=== PATIENT | female | born 1950 | race Caucasian/White ===

== ENCOUNTER 2017-12-16 10:41 | Emergency (ER) | payer MEDICARE, SELFPAY ==
--- NOTE | 2017-12-16 10:48 | ED.FEMALEGU ---
HPI - Female Genitourinary General Chief complaint: Urogenital-Female Stated complaint: BLOOD IN URINE Time Seen by Provider: 12/16/17 10:47 Source: patient Mode of arrival: wheelchair Limitations: no limitations History of Present Illness HPI Narrative: 67-year-old female here for evaluation of blood in her urine this morning. Patient states that she woke up this morning and had dark urine which look like blood. She has had a ache in her right side for several weeks now. 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 Has been in a wheelchair for approximately 10 years now. She states she does bruise easy. She has a bruise on her right hand which was from a injury that she sustained while boarding and aircraft for flight from [place]. No blood in her stool. She has never had a kidney stone before. Related Data Home Medications Medication Instructions Recorded Confirmed cholecalciferol (vitamin D3) 5,000 unit PO Q OTHER DAY 12/16/17 12/16/17 [Vitamin D3] digoxin 0.125 mg PO DAILY 12/16/17 12/16/17 diltiazem HCl 240 mg PO BID 12/16/17 12/16/17 divalproex 500 mg PO TID 12/16/17 12/16/17 folic acid 1 mg PO DAILY 12/16/17 12/16/17 furosemide 20 mg PO 3XW 12/16/17 12/16/17 metoprolol tartrate 100 mg PO TID 12/16/17 12/16/17 niacin 2,000 mg PO BEDTIME 12/16/17 12/16/17 potassium chloride 10 meq PO 3XW 12/16/17 12/16/17 rivaroxaban [Xarelto] 20 mg PO DAILY 12/16/17 12/16/17 rosuvastatin [Crestor] 40 mg PO DAILY 12/16/17 12/16/17 sertraline 50 mg PO DAILY 12/16/17 12/16/17 vitamin B complex 1 tab PO DAILY 12/16/17 12/16/17 Allergies Allergy/AdvReac Type Severity Reaction Status Date / Time Penicillins Allergy Rash Verified 12/16/17 11:04 Review of Systems Constitutional Denies headache(s) ENT Ears, Nose, Mouth, and Throat: Denies vertigo, Denies dizziness and Denies headache(s) Cardiovascular Denies chest pain and Denies dyspnea Respiratory Denies dyspnea Gastrointestinal Gastrointestinal: Denies abdominal pain, Denies nausea and Denies vomiting Genitourinary Reports hematuria, Denies dysuria, Reports flank pain (Flank soreness on her right), Denies urinary incontinence, Denies urinary hesitancy and Denies urinary urgency Musculoskeletal Denies myalgias and Denies arthralgias Comments: Left-sided upper and lower extremity weakness which is not new Integumentary/Breasts Denies lesions and Denies rash Comments: Bruising on the back of her right hand Neurologic Denies vertigo, Denies dizziness and Denies headache(s) Hematologic/Lymphatic Reports easy bruising PFSH Medical History Atrial fibrillation (Acute) CVA (cerebral vascular accident) (Acute) Congestive heart failure (Acute) Surgical History No pertinent past surgical history (Acute) Social History Smoking Status: Former smoker Exam Initial Vital Signs Initial Vital Signs: Vital Signs Temperature 98.0 F 12/16/17 11:00 Pulse Rate 136 H 12/16/17 11:00 Respiratory Rate 20 12/16/17 11:00 Blood Pressure 107/53 L 12/16/17 11:00 Pulse Oximetry 100 12/16/17 11:00 Const General: cooperative, well developed, well groomed and No acute distress Orientation: alert, awake and oriented x3 [facility] Head: normal to inspection and normocephalic Resp Effort & Inspection: normal respiratory effort Auscultation: clear to auscultation bilaterally Cardio Rate: tachycardic Pulses: radial pulses present Other: Patient goes in and out of atrial fibrillation with a heart rate sometimes in the 80s and sometimes in the 130s GI Inspection: non-distended Palpation: soft and No tender Back/Spine/Pelvis Back: No CVA tenderness (No CVA tenderness to palpation but does feel a soreness to her right side) Skin Rashes: no rashes Other: Bruising on the dorsum of the right hand consistent with her stated history Neuro General: alert, awake and oriented x3 Other: Unable to move the left upper extremity and left lower extremity but this is not new to her otherwise nonfocal neurologic exam Extrem General: capillary refill normal Psych Appearance: grossly normal and well kempt Course Orders Ordered: ED Orders 12/16/17 10:50 Urinalysis and Microscopic Stat Urine Culture Stat 12/16/17 11:15 Basic Metabolic Panel Stat Complete Blood Count AUTO DIFF Stat Partial Thromboplastin Time Stat Prothrombin Time INR Stat 12/16/17 12:25 CT kidney ureter bladder (KUB) Stat Discontinued Medications Sodium Chloride (Normal Saline 0.9%) 1,000 mls @ 500 mls/hr IV BOLUS ONE Stop: 12/16/17 12:54 Last Admin: 12/16/17 11:50 Dose: 500 mls/hr Vital Signs - 8 hr 12/16/17 11:00 12/16/17 11:44 12/16/17 12:10 Temperature 98.0 F Pulse Rate 136 H 97 H 115 H Respiratory Rate 20 16 16 Blood Pressure 107/53 L Blood Pressure [Right Arm] 127/71 128/56 L Pulse Oximetry 100 99 99 12/16/17 13:08 Temperature Pulse Rate 109 H Respiratory Rate 23 Blood Pressure Blood Pressure [Right Arm] 120/73 Pulse Oximetry MDM - Female Genitourinary Lab Data Attestation: I reviewed the patient's lab results. Result diagrams: 12/16/17 11:15 12/16/17 11:15 Lab Results 12/16/17 12/16/17 12/16/17 Range/Units 10:50 11:15 11:15 WBC 9.8 (4.5-11.0) X10^3/uL RBC 3.89 L (4.0-5.2) X10^6/uL Hgb 12.3 (12.0-16.0) g/dL Hct 37.0 (36-46) % MCV 95.3 (80-100) fL MCH 31.6 (26-34) PG MCHC 33.2 (30-36) % RDW 15.5 H (11.6-14.8) % Plt Count 175 (150-400) X10^3/uL Neut % (Auto) 74.9 (50-75) % Lymph % (Auto) 14.2 L (25-40) % [place] % (Auto) 9.3 (3-14) % Eos % (Auto) 1.1 L (2-4) % Baso % (Auto) 0.5 (0-2) % Neut # (Auto) 7400 H (8663-2225) /uL PT 17.0 H (10.1-12.7) SECONDS INR 1.6 H (0.9-1.3) APTT 36 (26.4-36.2) SECONDS Sodium (137-145) mmol/L Potassium (3.4-5.1) mmol/L Chloride (98-107) mmol/L Carbon Dioxide (22-32) mmol/L BUN (7-17) mg/dL Creatinine (0.52-1.04) mg/dL Estimated GFR (>60) mL/min BUN/Creatinine Ratio (6-22) Glucose (80-110) mg/dL Calcium (8.4-10.2) mg/dL Urine Color Brown Urine Appearance Turbid Urine pH 5.0 (4.5-8.0) Ur Specific [place] 1.025 (1.000-1.035) Urine Protein 2+ H (Negative) Urine Glucose (UA) Negative (Normal) g/dL Urine Ketones Trace H (NEGATIVE) Urine Occult Blood 3+ H (Negative) Urine Nitrate Negative (Negative) Urine Bilirubin Negative (NEGATIVE) Urine Urobilinogen 1.0 (0.2) E.U./dL Ur Leukocyte Esterase Negative (NEGATIVE) Urine RBC >100/hpf H (0-5/HPF) Urine WBC 1-5/hpf (0-5/HPF) Ur Squamous Epith Cells 0-1 /hpf Ur Renal Epithelial Cell 0-1/hpf Amorphous Sediment 3+ Urine Bacteria Few (2-10) H (None) Ur Culture Indicated? Not Reportable Micro UA Comment Not Reportable 12/16/17 Range/Units 11:15 WBC (4.5-11.0) X10^3/uL RBC (4.0-5.2) X10^6/uL Hgb (12.0-16.0) g/dL Hct (36-46) % MCV (80-100) fL MCH (26-34) PG MCHC (30-36) % RDW (11.6-14.8) % Plt Count (150-400) X10^3/uL Neut % (Auto) (50-75) % Lymph % (Auto) (25-40) % [place] % (Auto) (3-14) % Eos % (Auto) (2-4) % Baso % (Auto) (0-2) % Neut # (Auto) (8698-9183) /uL PT (10.1-12.7) SECONDS INR (0.9-1.3) APTT (26.4-36.2) SECONDS Sodium 146 H (137-145) mmol/L Potassium 4.1 (3.4-5.1) mmol/L Chloride 106 (98-107) mmol/L Carbon Dioxide 29 (22-32) mmol/L BUN 40 H (7-17) mg/dL Creatinine 1.30 H (0.52-1.04) mg/dL Estimated GFR 40.9 L (>60) mL/min BUN/Creatinine Ratio 30.8 H (6-22) Glucose 88 (80-110) mg/dL Calcium 9.4 (8.4-10.2) mg/dL Urine Color Urine Appearance Urine pH (4.5-8.0) Ur Specific [place] (1.000-1.035) Urine Protein (Negative) Urine Glucose (UA) (Normal) g/dL Urine Ketones (NEGATIVE) Urine Occult Blood (Negative) Urine Nitrate (Negative) Urine Bilirubin (NEGATIVE) Urine Urobilinogen (0.2) E.U./dL Ur Leukocyte Esterase (NEGATIVE) Urine RBC (0-5/HPF) Urine WBC (0-5/HPF) Ur Squamous Epith Cells Ur Renal Epithelial Cell Amorphous Sediment Urine Bacteria (None) Ur Culture Indicated? Micro UA Comment Imaging Data CT scan - abdomen: Radiologist's impression: [place] [address] CT Scan Report Signed Patient: YM DALTON [facility]#: [id number] : 1Acct:[id number] Age/Sex: 67 / FDate of Service: 12/16/17 Loc: ED Accession Number: [id number] Procedure: CT kidney ureter bladder (KUB) Ordering Provider: Bryce Fagan D.O. PROCEDURE: CT KIDNEY URETER BLADDER (KUB) INDICATIONS: right flank pain and hematuria eval for renal stone TECHNIQUE: Noncontrast 5 mm thick sections acquired from the diaphragms to the symphysis. 5 mm thick coronal and sagittal reformats were then performed. For radiation dose reduction, the following was used: automated exposure control, adjustment of mA and/or kV according to patient size. COMPARISON: None. FINDINGS: Image quality: Excellent. Lung bases: Lung volumes are low. There are multiple subcentimeter nodules visualized within the lung bases. Trace groundglass opacities are present. Urinary system: The right kidney is mildly enlarged. There is mild right hydronephrosis and hydroureter. There is moderate right periureteral fat stranding. Note no obstruction is visualized within the right ureter. However, there is questionable soft tissue thickening of the bladder at the level of the right ureterovesicular junction (series 2, image 71). There is scarring at the superior pole of the right kidney. A nonobstructing 5 mm diameter calculus is present in the right lower pole. There is scarring at the superior pole the left kidney. There are multiple subcentimeter nonobstructing calculi within the left kidney. No left hydronephrosis, hydroureter, or ureterolithiasis. No perinephric fat stranding. Other solid organs: Liver is normal in size. Gallbladder is surgically absent. Pancreas is normal in contours. Spleen is normal in size. No adrenal nodules. Peritoneum and bowel: Unenhanced bowel loops demonstrate normal wall thickness and caliber. There are extensive diverticula outpouchings throughout the colon. No mucosal thickening or pericolonic fat stranding to suggest acute diverticulitis. The appendix is not visualized; however there is no discrete right lower quadrant fluid or fat stranding to suggest acute appendicitis. No free fluid or air. Nodes and vessels: No retroperitoneal or mesenteric adenopathy by size criteria. Aorta and inferior vena cava are normal in caliber. There are scattered atheromatous calcifications throughout the aorta and iliac arteries bilaterally. Abdominal wall: No ventral hernias. Pelvis: No free pelvic fluid. No inguinal hernias or adenopathy. Bones: No suspicious bony lesions. No vertebral body compression fractures. A small sclerotic focus is present within the left inferior obturator ring which likely represents a small bone island. IMPRESSION: 1. Mild right hydronephrosis and hydroureter with right periureteral fat stranding. No renal calculus is visualized; however there is a questionable mass within the bladder near the right ureterovesicular junction. This may be associated with with an obstructing urothelial tumor. Direct visualization is recommended. 2. Nonobstructing bilateral nephrolithiasis. 3. Extensive colon diverticulosis. No acute diverticulitis. The appendix is not visualized. 4. Poorly characterize subcentimeter nodules within the lungs. If further characterization is warranted, nonemergent CT of the chest is recommended. Dictated by: Dania Peters M.D. on 12/16/2017 at 13:01 MDM Narrative Medical decision making narrative: Patient is not anemic today. Her urinalysis is not consistent with a urinary tract infection. She is on Xarelto. No signs of kidney stones on her CT scan. There was some concern about a possible mass at the right UVJ causing hydronephrosis and hydroureter. I discussed this case with [facility] urology who was avionics systems engineer who stated that this could be a tumor versus is a blood clot. He stated that she does need further workup however this could be done as an outpatient. I discussed all this with the patient. I did inform her of the finding on the CT scan and the concern that this may be a tumor. They are new to the [facility]. They are not set up with the primary care doctor however they did have plans of doing so tomorrow. They were given phone numbers for the [facility] urology groups and also the [facility]. Informed them that she should still continue to take her Xarelto. She was informed to increase her fluid intake. She was given return precautions. Both her and her daughter expressed understanding and agreement with plan. Discharge Plan Departure Patient Disposition: Home Clinical Impression: Hematuria Instructions: DI for Hematuria Activity Restrictions/Additional Instructions: I would continue all of your medications to include the Xarelto. The CT scan today did show what appears to be a mass on the right side of your bladder. It is important that this gets followed up. Thinks that this could be include diagnosis such as a blood clot but could also be a tumor. I would highly recommend that you contact the [facility] primary care groups to establish care. You can also try to call the [facility] urology group at [phone]. There is a possibility that they would require a referral from a primary care doctor before they will see you. Return to the emergency department for any new or worsening symptoms. Prescriptions: No Action metoprolol tartrate 100 mg Tablet 100 mg PO TID RF: 0 divalproex 500 mg Tablet,Delayed Release (Dr/Ec) 500 mg PO TID RF: 0 vitamin B complex Tablet 1 tab PO DAILY RF: 0 folic acid 1 mg Tablet 1 mg PO DAILY RF: 0 digoxin 125 mcg Tablet 0.125 mg PO DAILY RF: 0 furosemide 20 mg Tablet 20 mg PO 3XW RF: 0 sertraline 50 mg Tablet 50 mg PO DAILY RF: 0 diltiazem HCl 240 mg Tablet Extended Release 24 Hr 240 mg PO BID RF: 0 rosuvastatin [Crestor] 40 mg Tablet 40 mg PO DAILY RF: 0 cholecalciferol (vitamin D3) [Vitamin D3] 5,000 unit Tablet 5,000 unit PO Q OTHER DAY RF: 0 niacin 1,000 mg Tablet Extended Release 2,000 mg PO BEDTIME RF: 0 rivaroxaban [Xarelto] 20 mg Tablet 20 mg PO DAILY RF: 0 potassium chloride 10 mEq Tablet Extended Release 10 meq PO 3XW RF: 0
[2017-12-16 11:00] VITALS: BP 107/53; PULSE 136; RESP 20; TEMP 36.7; O2SAT 100; BMI 35.6
[2017-12-16 11:20] LABS: Appearance Urine UA TURBID; Bilirubin Urine UA NEGATIVE (NEGATIVE); Color Urine UA BROWN; Glucose Urine UA NEGATIVE (Normal); Ketones Urine UA TRACE (NEGATIVE); Leukocyte Esterase Urine UA NEGATIVE (NEGATIVE); Nitrite Urine UA NEGATIVE (Negative); Occult Blood Urine UA 3+ (Negative); Protein Urine UA 2+ (Negative); Specific Gravity Urine UA 1.025 (1.000-1.035)
[2017-12-16 11:39] LABS: Add Manual Diff / Slide Review NO; Basophils Percent Auto 0.5 % (0-2); Eosinophils Percent Auto 1.1 % (2-4); Hemoglobin 12.3 g/dL (12.0-16.0); Lymphocytes Percent Auto 14.2 % (25-40); Mean Corpuscular HGB Conc 33.2 % (30-36); Mean Corpuscular Hemoglobin 31.6 PG (26-34); Mean Corpuscular Volume 95.3 fL (80-100); Monocytes Percent Auto 9.3 % (3-14); Neutrophils Absolute Auto 7400 /uL (3000-5900); Neutrophils Percent Auto 74.9 % (50-75); Platelet Count 175 X10^3/uL (150-400); Red Blood Cell Count 3.89 X10^6/uL (4.0-5.2); Red Cell Distribution Width 15.5 % (11.6-14.8); White Blood Cell Count 9.8 X10^3/uL (4.5-11.0)
[2017-12-16 11:39] LABS: RBC Urine >100/HPF (0-5/HPF); WBC Urine 1-5/HPF (0-5/HPF)
[2017-12-16 11:40] LABS: Amorphous Sediment Urine 3+; Bacteria Urine Few (2-10); Renal Epithelial Cells Urine 0-1/HPF; Squamous Epithelial Cell Urine 0-1 /HPF
--- NOTE | 2017-12-16 11:42 | PC.NURSE ---
by LORY Wilson guided by ultrasound, tolerated well.
--- NOTE | 2017-12-16 11:43 | PC.NURSE ---
pt here due to blood in the urine, treated with uti 2 weeks ago , treated with antibiotic for 7 days, reports right kidney pain for one week, pt on xarelto for afib. denies fever or vomiting.
[2017-12-16 11:44] VITALS: BP 127/71; PULSE 97; RESP 16; O2SAT 99
[2017-12-16 11:45] LABS: INR 1.6 (0.9-1.3)
--- NOTE | 2017-12-16 11:45 | PC.NURSE ---
hx of cva left side deficit for 11 years.
[2017-12-16 11:47] LABS: PTT Partial Thromboplastin Tim 36 SECONDS (26.4-36.2)
[2017-12-16 11:49] LABS: BUN Creatinine Ratio 30.8 (6-22); Blood Urea Nitrogen 40 mg/dL (7-17); Calcium 9.4 mg/dL (8.4-10.2); Carbon Dioxide 29 mmol/L (22-32); Chloride 106 mmol/L (98-107); Estimated Glomerular Filt Rate 40.9 mL/min (>60); Glucose 88 mg/dL (80-110); HEMOLYSIS < 15 (0-50); Potassium 4.1 mmol/L (3.4-5.1); Sodium 146 mmol/L (137-145)
[2017-12-16] MEDS: SODIUM CHLORIDE 0.9% 1,000 ML 500 ML IV (11:50)
[2017-12-16 12:10] VITALS: BP 128/56; PULSE 115; RESP 16; O2SAT 99
--- NOTE | 2017-12-16 12:25 | DI.CT.S_ITS ---
PROCEDURE: CT KIDNEY URETER BLADDER (KUB) INDICATIONS: right flank pain and hematuria eval for renal stone TECHNIQUE: Noncontrast 5 mm thick sections acquired from the diaphragms to the symphysis. 5 mm thick coronal and sagittal reformats were then performed. For radiation dose reduction, the following was used: automated exposure control, adjustment of mA and/or kV according to patient size. COMPARISON: None. FINDINGS: Image quality: Excellent. Lung bases: Lung volumes are low. There are multiple subcentimeter nodules visualized within the lung bases. Trace groundglass opacities are present. Urinary system: The right kidney is mildly enlarged. There is mild right hydronephrosis and hydroureter. There is moderate right periureteral fat stranding. Note no obstruction is visualized within the right ureter. However, there is questionable soft tissue thickening of the bladder at the level of the right ureterovesicular junction (series 2, image 71). There is scarring at the superior pole of the right kidney. A nonobstructing 5 mm diameter calculus is present in the right lower pole. There is scarring at the superior pole the left kidney. There are multiple subcentimeter nonobstructing calculi within the left kidney. No left hydronephrosis, hydroureter, or ureterolithiasis. No perinephric fat stranding. Other solid organs: Liver is normal in size. Gallbladder is surgically absent. Pancreas is normal in contours. Spleen is normal in size. No adrenal nodules. Peritoneum and bowel: Unenhanced bowel loops demonstrate normal wall thickness and caliber. There are extensive diverticula outpouchings throughout the colon. No mucosal thickening or pericolonic fat stranding to suggest acute diverticulitis. The appendix is not visualized; however there is no discrete right lower quadrant fluid or fat stranding to suggest acute appendicitis. No free fluid or air. Nodes and vessels: No retroperitoneal or mesenteric adenopathy by size criteria. Aorta and inferior vena cava are normal in caliber. There are scattered atheromatous calcifications throughout the aorta and iliac arteries bilaterally. Abdominal wall: No ventral hernias. Pelvis: No free pelvic fluid. No inguinal hernias or adenopathy. Bones: No suspicious bony lesions. No vertebral body compression fractures. A small sclerotic focus is present within the left inferior obturator ring which likely represents a small bone island. IMPRESSION: 1. Mild right hydronephrosis and hydroureter with right periureteral fat stranding. No renal calculus is visualized; however there is a questionable mass within the bladder near the right ureterovesicular junction. This may be associated with with an obstructing urothelial tumor. Direct visualization is recommended. 2. Nonobstructing bilateral nephrolithiasis. 3. Extensive colon diverticulosis. No acute diverticulitis. The appendix is not visualized. 4. Poorly characterize subcentimeter nodules within the lungs. If further characterization is warranted, nonemergent CT of the chest is recommended. Dictated by: Dania Peters M.D. on 12/16/2017 at 13:01 Approved by: Dania Peters M.D. on 12/16/2017 at 13:07
[2017-12-16 13:08] VITALS: BP 120/73; PULSE 109; RESP 23
[2017-12-16 14:30] VITALS: BP 117/87; PULSE 111; RESP 16; O2SAT 100
== END 2017-12-16 14:31 | disposition home or self-care (01) ==
PROVIDERS: Emergency Provider Emergency Medicine
DX: R31.9 Hematuria, unspecified (principal)
CPT/HCPCS: 36591; 51798; 74176; 80048; 81001; 85025; 85610; 85730; 87086; 96360; 96361; 99284

== ENCOUNTER 2019-05-31 03:34 | Inpatient (IN) | payer OTHER, SELFPAY ==
[2019-05-31] VITALS (20 sets, daily range): BP systolic 147–192; BP diastolic 66–103; PULSE 74–119; RESP 14–24; TEMP 36.6–37.6; O2SAT 90–98; BMI 36.3; BMI 29.2
--- NOTE | 2019-05-31 | DI.ECHO.S_ITS ---
[facility]---------+ [facility] +---------+ : : [address] : : : : [id number] : : : : Phone: [phone] Echocardiogram Report + + :Name: MY DALTON Study Date: 06/02/2019 Height: 66 in : :[facility] Weight: 225 lb : : Gender: Female BSA: 2.1 m2 : :: 1950 Age: 69 yrs BP: 156/76 mmHg: :Reason For Study: CHF : : Performed By: Hillary Gregory : :Referring: RADHA MEZA : + + Interpretation Summary The patient was in atrial fibrillation with heart rates between 70-112 bpm during the exam. Mild-moderate concentric left ventricular hypertrophy with ejection fraction 55-60%. Apical hypertrophy is present. Severely dilated left atrium. Moderate to severely dilated right atrium. Mild aortic valve sclerosis. Mild aortic regurgitation. Mild mitral annular calcification. Moderate mitral regurgitation. Mild tricuspid regurgitation. The right ventricular systolic pressure is estimated to be at least 30 mmHg based on an estimated right atrial pressure of 3 mm Hg. Mildly enlarged ascending aorta. Procedure: A two-dimensional transthoracic echocardiogram with color flow and Doppler was performed. The study quality was technically adequate. There is no prior echocardiogram noted for this patient. A contrast injection of Definity was performed to improve assessment of LV function. Definity contrast used after patient education and consent. Patient denied any symptoms after the use of Definity. Contrast was injected into an intravenous site in the right arm. The patient was in atrial fibrillation with heart rates between 70- 112 bpm during the exam. Left Ventricle: The left ventricle is normal in size. There is mild-moderate concentric left ventricular hypertrophy. Apical hypertrophy is present. The ejection fraction is estimated to be 55-60%. There are no obvious focal wall motion abnormalities noted but poor endocardial definition reduces the sensitivity for the detection of such. Diastolic function could not be accurately assessed due to atrial fibrillation. Right Ventricle: The right ventricle grossly appears normal in size with probable normal systolic function. Atria: The left atrium is severely dilated. The right atrium is moderate to severely dilated. There is no Doppler evidence for an interatrial shunt. Mitral Valve: The mitral valve leaflets appear mildly thickened, but open well. There is mild mitral annular calcification. There is moderate mitral regurgitation. Aortic Valve: The aortic valve is not well visualized. There is mild aortic valve sclerosis. There is mild aortic regurgitation. Tricuspid Valve: The tricuspid valve is normal in structure and function. There is mild tricuspid regurgitation. The right ventricular systolic pressure is estimated to be at least 30 mmHg based on an estimated right atrial pressure of 3 mm Hg. Pulmonic Valve: The pulmonic valve is not well visualized. There is no pulmonic valvular regurgitation. Great Vessels: The aortic root is not well visualized. The ascending aorta is mildly enlarged. The IVC is of normal diameter and collapses greater than 50% with a sniff. This suggests a low right atrial pressure of 3 mm Hg. Pericardium/ Pleura There is no pericardial effusion. There is no pleural effusion. MMode/2D Measurements & Calculations LVIDd: 4.8 cm LVOT diam: 1.9 cm LVIDs: 3.5 cm Ao root diam: 2.8 cm FS: 27.6 % asc Aorta Diam: 3.6 cm EPSS: 0.57 cm IVSd: 1.3 cm LVPWd: 1.3 cm LV stout. diameter/BSA (cm/m^2): 2.3 LV sys. diameter/BSA (cm/m^2): 1.7 LA A2 area: 30.5 cm2 RA long axis: 6.3 cm LA A4 area: 27.9 cm2 RA area: 26.3 cm2 LA length (vol): 6.3 cm RA vol: 93.5 ml LA vol: 114.8 ml RA : 44.5 ml/m2 LA vol index: 54.6 ml/m2 IVC diam: 1.9 cm RVD1 (basal): 3.3 cm TAPSE: 1.2 cm Doppler Measurements & Calculations Ao V2 max: 204.2 cm/sec LVOT Max Remington: 90.6 cm/sec Ao V2 mean: 128.7 cm/sec LV V1 max P.3 mmHg Ao max P.7 mmHg LV V1 VTI: 15.4 cm Ao mean P.0 mmHg LALO(I,D): 1.4 cm2 Ao V2 VTI: 33.5 cm LALO(V,D): 1.3 cm2 sev ratio: 0.46 LALO indexed to BSA (cm^2/m^2): 0.64 MV E max remington: 88.0 cm/sec TR max remington: 259.7 cm/sec MV A max remington: 1.9 cm/sec TR max P.0 mmHg MV E/A: 46.6 PA V2 max: 116.9 cm/sec Med Peak E' Remington: 4.9 cm/sec PA V2 mean: 75.3 cm/sec E/E' med: 17.8 PA mean P.7 mmHg Lat Peak E' Remington: 8.0 cm/sec PA pr(Accel): 54.1 mmHg E/E' lat: 11.0 PA Accel Time: 0.06 sec E/e' average: 14.4 MV dec time: 0.16 sec SV(VALERIO): 45.3 ml Electronically signed by: Rhea Morrissey on Reading Physician:06/02/2019 01:44 PM
--- NOTE | 2019-05-31 03:35 | ED_ITS ---
HPI - SOB/Dyspnea General Chief Complaint: Arrhythmia/Palpitations Stated Complaint: SOB Time Seen by Provider: 05/31/19 03:35 Source: patient Mode of arrival: Ambulatory Limitations: no limitations History of Present Illness HPI Narrative: 69-year-old female nonsmoker with history of AFib on Xarelto with above left-sided stroke presents with a chief complaint of rapid atrial fibrillation and increasing shortness of breath and fatigue since yesterday. She denies any chest pain and is not dizzy or lightheaded. She denies any fever, chills or cough. She has had no headache, sore throat nor runny nose. She denies any change in her medications nor any dietary indiscretions. Her last hospitalization for atrial fibrillation was approximately 2 and half years ago. She states she is chronically in atrial fibrillation and typically Cardizem and the beta-blockers do not help and she normally responds to amio darone and then amiodarone drip during hospitalizations. She does take digoxin and took her last dose last evening. She has been having swelling in her lower extremities, denies any weight gain, but does admit to increasing shortness of breath lying flat. She takes Lasix as needed for fluid overload and did take a dose yesterday MD Complaint: shortness of breath Onset (ago): hour(s) Severity: moderate Relieving factors: upright position Exacerbating factors: lying flat and exertion Known history of: congestive heart failure Associated symptoms: wheezing Related Data Home Medications Medication Instructions Recorded Confirmed cholecalciferol (vitamin D3) 5,000 unit PO Q OTHER DAY 12/16/17 12/16/17 [Vitamin D3] digoxin 0.125 mg PO DAILY 12/16/17 12/16/17 diltiazem HCl 240 mg PO BID 12/16/17 12/16/17 divalproex 500 mg PO TID 12/16/17 12/16/17 folic acid 1 mg PO DAILY 12/16/17 12/16/17 furosemide 20 mg PO 3XW 12/16/17 12/16/17 metoprolol tartrate 100 mg PO TID 12/16/17 12/16/17 niacin 2,000 mg PO BEDTIME 12/16/17 12/16/17 potassium chloride 10 meq PO 3XW 12/16/17 12/16/17 rivaroxaban [Xarelto] 20 mg PO DAILY 12/16/17 12/16/17 rosuvastatin [Crestor] 40 mg PO DAILY 12/16/17 12/16/17 sertraline 50 mg PO DAILY 12/16/17 12/16/17 vitamin B complex 1 tab PO DAILY 12/16/17 12/16/17 Allergies Allergy/AdvReac Type Severity Reaction Status Date / Time Penicillins Allergy Rash Verified 05/31/19 03:57 Review of Systems Constitutional Constitutional: Denies chills, Denies fatigue, Denies fever(s), Denies frequent falls, Denies lethargy and Denies weakness Eyes Eyes: Denies change in vision, Denies eye discharge, Denies irritation and Denies loss of vision ENT Ears, Nose, Mouth, and Throat: Denies change in voice, Denies dizziness, Denies neck pain, Denies sore throat and Denies throat swelling Cardiovascular Cardiovascular: Denies chest pain, Reports irregular heart rhythm, Denies lightheadedness, Reports palpitations, Reports dyspnea, Reports dyspnea on exertion and Reports orthopnea Respiratory Respiratory: Denies cough, Reports dyspnea, Reports dyspnea on exertion and Denies wheezing Gastrointestinal Gastrointestinal: Denies abdominal pain, Denies change in bowel habits, Denies diarrhea, Denies nausea and Denies vomiting Genitourinary Genitourinary: Denies hematuria, Denies flank pain, Denies urinary incontinence and Denies urinary urgency Musculoskeletal Musculoskeletal: Denies back pain, Denies muscle weakness, Denies neck pain, Denies numbness and Denies tingling Integumentary/Breasts Skin/Breast: Denies pruritus, Denies erythema, Denies rash and Denies wounds Neurologic Neurologic: Denies behavioral changes, Denies confusion, Denies dizziness, Denies frequent falls, Denies loss of vision, Denies numbness, Denies tingling and Denies weakness Psychiatric Psychiatric: Denies anxiety, Denies behavioral changes, Denies confusion, Denies depression, Denies homicidal ideation and Denies suicidal ideation Endocrine Endocrine: Denies fatigue, Denies flushing and Reports palpitations Hematologic/Lymphatic Hematologic/Lymphatic: Denies easy bruising Allergic/Immunologic Allergic/Immunologic: Denies urticaria, Denies throat swelling and Denies wheezing Patient History Medical History Atrial fibrillation (Acute) Congestive heart failure (Acute) CVA (cerebral vascular accident) (Acute) Surgical History No pertinent past surgical history (Acute) Social History Smoking Status: Former smoker Smoking Status: Former smoker alcohol intake frequency: holidays/special occasions only Substance Use Type: does not use Exam Narrative Exam Narrative: GENERAL: [69] year old patient appears stated age. Well- nourished, well-developed patient, in mild distress. HEAD: Atraumatic. Normocephalic. EYES: Pupils equal round and reactive. Extraocular motions intact. No scleral icterus. No injection or drainage. ENT: Nose without bleeding, purulent drainage. Throat without erythema, tonsillar hypertrophy or exudate. Airway patent. NECK: Trachea midline. Non tender CARDIOVASCULAR: Tachycardic and irregular rhythm without murmurs, gallops, or rubs. RESPIRATORY: Faint crackles in bilateral bases GASTROINTESTINAL: Abdomen soft, non-tender, nondistended. EXTREMITIES:1+ pitting edema in B/L LE BACK: Nontender without deformity or crepitance. No flank tenderness. NEURO: AOx3. Left-sided paralysis at baseline per patient SKIN: No rash or erythema of visible areas Initial Vital Signs Initial Vital Signs: Vital Signs Temperature 99.6 F 05/31/19 03:46 Pulse Rate 111 H 05/31/19 03:46 Respiratory Rate 18 05/31/19 03:46 Blood Pressure 150/80 H 05/31/19 03:46 Pulse Oximetry 98 05/31/19 03:46 Course Orders Ordered: ED Orders 05/31/19 03:43 EKG-12 Lead Routine 05/31/19 03:54 XR chest 1V Stat 05/31/19 04:05 Basic Metabolic Panel Stat Complete Blood Count AUTO DIFF Stat NT-proBNP (BNP-Adult 18+) Stat Prothrombin Time INR Stat Troponin & CK Cardiac Panel Stat 05/31/19 04:27 CT chest wo con Stat 05/31/19 04:37 C-Reactive Protein Quant Stat Digoxin Stat Ferritin Stat Procalcitonin Stat Amiodarone HCl/Dextrose (Nexterone) 360 mg in 200 mls @ 33.333 mls/hr IV NOW ONE; Protocol Stop: 05/31/19 10:10 Last Admin: 05/31/19 04:32 Dose: 33.333 mls /hr, 33.33 mls/hr Documented by: CNONIE Discontinued Medications Furosemide (Lasix) 40 mg IV NOW ONE Stop: 05/31/19 03:55 Last Admin: 05/31/19 04:16 Dose: 40 mg Documented by: CONNIE Amiodarone HCl/Dextrose (Nexterone) 150 mg in 100 mls @ 600 mls/hr IV NOW ONE; Protocol Stop: 05/31/19 04:03 Last Infusion: 05/31/19 04:33 Dose: 0 mls/hr Documented by: Admin: 05/31/19 04:16 Dose: 600 mls/hr Documented by: CONNIE Vital Signs Vital signs: Vital Signs - 8 hr 05/31/19 03:46 05/31/19 05:50 Temperature 99.6 F Pulse Rate 111 H 96 H Respiratory Rate 18 14 Blood Pressure 150/80 H Blood Pressure [Right Arm] 160/83 H Pulse Oximetry 98 92 MDM - SOB/Dyspnea Lab Data Result diagrams: 05/31/19 04:05 05/31/19 04:05 Labs: Lab Results 05/31/19 05/31/19 05/31/19 Range/Units 04:05 04:05 04:05 WBC 13.0 H (4.5-11.0) X10^3/uL RBC 3.81 L (4.0-5.2) X10^6/uL Hgb 11.7 L (12.0-16.0) g/dL Hct 36.8 (36-46) % MCV 96.6 (80-100) fL MCH 30.8 (26-34) PG MCHC 31.9 (30-36) % RDW 16.0 H (11.6-14.8) % Plt Count 316 (150-400) X10^3/uL Neut % (Auto) 72.6 (50-75) % Lymph % (Auto) 12.7 L (25-40) % [place] % (Auto) 11.9 (3-14) % Eos % (Auto) 2.1 (2-4) % Baso % (Auto) 0.7 (0-2) % Neut # (Auto) 9400 H (4455-8261) /uL Lymph # (Auto) 1700 (0508-6220) /uL [place] # (Auto) 1600 H (0-900) /uL Eos # (Auto) 300 (0-450) /uL Baso # (Auto) 100 (0-100) /uL PT 21.1 H (10.1-12.7) SECONDS INR 1.9 H (0.9-1.3) Sodium 143 (137-145) mmol/L Potassium 4.7 (3.4-5.1) mmol/L Chloride 110 H (98-107) mmol/L Carbon Dioxide 21 L (22-32) mmol/L BUN 35 H (7-17) mg/dL Creatinine 1.07 H (0.52-1.04) mg/dL Estimated GFR 50.8 L (>60) mL/min BUN/Creatinine Ratio 32.7 H (6-22) Glucose 115 H (80-110) mg/dL Calcium 10.1 (8.4-10.2) mg/dL Ferritin (11-264) ng/mL Total Creatine Kinase 33 (30-135) U/L CK-MB (CK-2) TNP CK-MB (CK-2) Rel Index TNP Troponin I < 0.012 (0.01-0.034) ng/mL C-Reactive Protein (<1.0) mg/dL NT-Pro-B Natriuret Pep 4490 H (<125) pg/mL Procalcitonin (<0.5) ng/mL Digoxin (0.8-2.0) ng/mL 05/31/19 05/31/19 05/31/19 Range/Units 04:37 04:37 04:37 WBC (4.5-11.0) X10^3/uL RBC (4.0-5.2) X10^6/uL Hgb (12.0-16.0) g/dL Hct (36-46) % MCV (80-100) fL MCH (26-34) PG MCHC (30-36) % RDW (11.6-14.8) % Plt Count (150-400) X10^3/uL Neut % (Auto) (50-75) % Lymph % (Auto) (25-40) % [place] % (Auto) (3-14) % Eos % (Auto) (2-4) % Baso % (Auto) (0-2) % Neut # (Auto) (6201-6219) /uL Lymph # (Auto) (9058-8371) /uL [place] # (Auto) (0-900) /uL Eos # (Auto) (0-450) /uL Baso # (Auto) (0-100) /uL PT (10.1-12.7) SECONDS INR (0.9-1.3) Sodium (137-145) mmol/L Potassium (3.4-5.1) mmol/L Chloride (98-107) mmol/L Carbon Dioxide (22-32) mmol/L BUN (7-17) mg/dL Creatinine (0.52-1.04) mg/dL Estimated GFR (>60) mL/min BUN/Creatinine Ratio (6-22) Glucose (80-110) mg/dL Calcium (8.4-10.2) mg/dL Ferritin 95 (11-264) ng/mL Total Creatine Kinase (30-135) U/L CK-MB (CK-2) CK-MB (CK-2) Rel Index Troponin I (0.01-0.034) ng/mL C-Reactive Protein 6.5 H (<1.0) mg/dL NT-Pro-B Natriuret Pep (<125) pg/mL Procalcitonin < 0.05 (<0.5) ng/mL Digoxin 1.4 (0.8-2.0) ng/mL ECG Data Attestation: I personally reviewed and interpreted this ECG as follows: Prior ECG tracings: not available for review Interpretation: Rapid atrial fibrillation with rate 111, LVH, Discharge Plan Departure Patient Disposition: Admitted As Inpatient Clinical Impression: Atrial fibrillation Qualifiers: Atrial fibrillation type: longstanding persistent Qualified Code(s): I48.11 - Longstanding persistent atrial fibrillation Acute CHF Qualifiers: Heart failure type: unspecified Qualified Code(s): I50.9 - Heart failure, unspecified Admit Date/Time: 05/31/19 06:25 Admit Provider: Alejandra Schmidt
--- NOTE | 2019-05-31 03:54 | DI.RAD.S_ITS ---
PROCEDURE: XR CHEST 1V INDICATIONS: Shortness of breath TECHNIQUE: One view of the chest was acquired. COMPARISON: [facility], CT, CT CHEST WO CON, 05/31/2019, 4:38. FINDINGS: Surgical changes and devices: None. Lungs and pleura: Diffuse ground glass attenuation is identified throughout the lungs bilaterally with a possible area of consolidation within the left lung base. No large effusion or pneumothorax is evident. However, there is blunting of the costophrenic angles. Mediastinum: Mediastinal contours appear normal. Heart size is slightly enlarged. There is aortic atherosclerosis. Bones and chest wall: No suspicious bony lesions. Overlying soft tissues appear unremarkable. IMPRESSION: 1. Diffuse groundglass attenuation throughout the lungs may represent an atypical infection, pulmonary edema, or hypersensitivity pneumonitis. Please correlate clinically. 2. Cardiomegaly. Dictated by: Socrates Ramirez M.D. on 05/31/2019 at 7:40 Approved by: Socrates Ramirez M.D. on 05/31/2019 at 7:41
[2019-05-31 04:15] LABS: Add Manual Diff / Slide Review NO; Basophils Absolute Auto 100 /uL (0-100); Basophils Percent Auto 0.7 % (0-2); Eosinophils Absolute Auto 300 /uL (0-450); Eosinophils Percent Auto 2.1 % (2-4); Hematocrit 36.8 % (36-46); Hemoglobin 11.7 g/dL (12.0-16.0); Lymphocytes Absolute Auto 1700 /uL (1100-4500); Lymphocytes Percent Auto 12.7 % (25-40); Mean Corpuscular HGB Conc 31.9 % (30-36); Mean Corpuscular Hemoglobin 30.8 PG (26-34); Mean Corpuscular Volume 96.6 fL (80-100); Monocytes Absolute Auto 1600 /uL (0-900); Monocytes Percent Auto 11.9 % (3-14); Neutrophils Absolute Auto 9400 /uL (1500-7000); Neutrophils Percent Auto 72.6 % (50-75); Platelet Count 316 X10^3/uL (150-400); Red Blood Cell Count 3.81 X10^6/uL (4.0-5.2)
[2019-05-31] MEDS: FUROSEMIDE 40 MG/4 ML VIAL IV (04:16)
[2019-05-31] MEDS: AMIODARONE 150 MG/100 ML PIGGYBACK 600 MG IV (04:16)
[2019-05-31 04:22] LABS: INR 1.9 (0.9-1.3); Prothrombin Time 21.1 SECONDS (10.1-12.7)
[2019-05-31 04:26] LABS: BUN Creatinine Ratio 32.7 (6-22); Blood Urea Nitrogen 35 mg/dL (7-17); Calcium 10.1 mg/dL (8.4-10.2); Carbon Dioxide 21 mmol/L (22-32); Chloride 110 mmol/L (98-107); Creatine Kinase 33 U/L (30-135); Estimated Glomerular Filt Rate 50.8 mL/min (>60); Glucose 115 mg/dL (80-110); HEMOLYSIS 23 (0-50); Potassium 4.7 mmol/L (3.4-5.1); Sodium 143 mmol/L (137-145)
--- NOTE | 2019-05-31 04:27 | DI.CT.S_ITS ---
PROCEDURE: CT CHEST WO CON INDICATIONS: Shortness o fbreath, low grade fever TECHNIQUE: Noncontrast 5 mm thick sections acquired from the pulmonary apices to the posterior costophrenic angles. 1 mm lung window, 5 mm thick coronal and sagittal and 7 mm axial MIP reformats were then acquired. For radiation dose reduction, the following was used: automated exposure control, adjustment of mA and/or kV according to patient size. COMPARISON: [facility], CR, XR CHEST 1V, 05/31/2019, 4:01. FINDINGS: Image quality: Diagnostic. Lungs and pleura: Extensive groundglass attenuation is identified diffusely throughout the lungs with additional areas of mild interlobular septal thickening. Scattered pulmonary nodules appear to be developing within these areas of groundglass attenuation. Trace bilateral pleural effusions are identified. There is no lung mass. Scattered calcified granulomas within the right lung are present. Mediastinum: The heart is enlarged. No significant pericardial effusion is identified. Coronary artery atherosclerosis is present. There is also aortic atherosclerosis with borderline aneurysmal dilatation of the ascending thoracic aorta, measuring up to 3.9 cm. The main pulmonary arterial trunk is mildly enlarged at 3.5 cm in diameter. No mediastinal mass is evident. Small moderate size lymph nodes are identified within the mediastinum with the largest located within the anterior subcarinal region, which measures up to approximately 1.6 cm in short axis (image 25, series 2). A prevascular lymph node near the aortopulmonary window is also present, which is slightly prominent in size. Additional hilar and mediastinal lymph nodes are evident. The esophagus is normal in course and caliber. There is no hiatal hernia. Bones and chest wall: No suspicious bony lesions. No vertebral body compression fractures. Moderate degenerative changes of the thoracic spine are evident. No axillary or supraclavicular adenopathy by size criteria. Thyroid gland is not adequately evaluated on CT, but is not enlarged.. Abdomen: The included portions of the upper abdomen appear demonstrate mild renal atrophy. However, the kidneys adequately characterize. IMPRESSION: 1. Groundglass attenuation throughout the lungs is nonspecific, but may represent pulmonary edema, atypical infection, or hypersensitivity pneumonitis. Please correlate clinically. 2. Small bilateral effusions. 3. Cardiomegaly. 4. Reactive mediastinal and hilar lymph nodes are mildly enlarged. 5. Borderline aneurysmal dilatation of the ascending thoracic aorta. 6. Coronary and aortic atherosclerosis. Note: The preliminary report provided by [facility] is concordant with the final report. Dictated by: Socrates Ramirez M.D. on 05/31/2019 at 7:42 Approved by: Socrates Ramirez M.D. on 05/31/2019 at 7:46
[2019-05-31] MEDS: AMIODARONE 360 MG/200 ML PIGGYBACK 33.33 MG IV (04:32)
[2019-05-31 04:38] LABS: NT-proBNP (BNP-Adult 18+) 4490 pg/mL (<125); Troponin I < 0.012 ng/mL (0.01-0.034)
[2019-05-31 04:58] LABS: C-Reactive Protein Quant 6.5 mg/dL (<1.0)
[2019-05-31 05:10] LABS: Digoxin 1.4 ng/mL (0.8-2.0); Procalcitonin < 0.05 ng/mL (<0.5)
--- NOTE | 2019-05-31 05:27 | PC.NURSE ---
Placed larsen catheter. no urine output. pt reports feels like she needs to urinate. Removed larsen and placed on bed [place]. Pt able to void.
[2019-05-31 05:31] LABS: Ferritin 95 ng/mL (11-264)
--- NOTE | 2019-05-31 05:49 | PC.NURSE ---
patient repeatedly desatted into upper 80s. Patient sleeping during osme but not all episodes. Placed on 2l NC. Provider aware.
--- NOTE | 2019-05-31 07:09 | P.HP_ITS ---
History of Present Illness History of Present Illness Date Patient Seen: 05/31/19 Time Patient Seen: 06:30 Chief complaint: SOB Narrative: Regina Capellan is a 69-year-old female with the previous CVA affecting her left side, chronic atrial fibrillation, congestive heart failure, and hyperlipidemia presented with shortness of breath to the emergency department and was found to be in atrial fibrillation. She stated that she had shortness of breath both at rest and when active. She denies fever, sweats or chills. She denies chest pain, nausea vomiting, abdominal pain, dysuria, diarrhea or constipation. She is paralyzed on left side but denies any abnormal neurological sensations on the right. Patient has not had any sick contacts, though lives with her daughter, son-in-law and school aged children. 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 Patient History Medical History (Updated 05/31/19 @ 07:12 by CHRISS Maloney) Atrial fibrillation (Acute) Congestive heart failure (Acute) CVA (cerebral vascular accident) (Acute) History of CVA with residual deficit (Chronic) HLD (hyperlipidemia) (Chronic) Surgical History (Updated 05/31/19 @ 07:12 by CHRISS Maloney) Hx of cholecystectomy (Acute) Family & Social History Safety & Behavioral: Feels Safe in Current Yes Environment Been Physically Hurt or No Threatened By a Person Tobacco & Substance use: Smoking Status Former smoker alcohol intake frequency holiday/special occasion Substance Use Type does not use Meds Home Medications and Allergies Home Medications Medication Instructions Recorded Confirmed Type cholecalciferol (vitamin D3) 5,000 unit PO Q OTHER DAY 12/16/17 12/16/17 History [Vitamin D3] digoxin 0.125 mg PO DAILY 12/16/17 12/16/17 History diltiazem HCl 240 mg PO BID 12/16/17 12/16/17 History divalproex 500 mg PO TID 12/16/17 12/16/17 History folic acid 1 mg PO DAILY 12/16/17 12/16/17 History furosemide 20 mg PO 3XW 12/16/17 12/16/17 History metoprolol tartrate 100 mg PO TID 12/16/17 12/16/17 History niacin 2,000 mg PO BEDTIME 12/16/17 12/16/17 History potassium chloride 10 meq PO 3XW 12/16/17 12/16/17 History rivaroxaban [Xarelto] 20 mg PO DAILY 12/16/17 12/16/17 History rosuvastatin [Crestor] 40 mg PO DAILY 12/16/17 12/16/17 History sertraline 50 mg PO DAILY 12/16/17 12/16/17 History vitamin B complex 1 tab PO DAILY 12/16/17 12/16/17 History Allergies Allergy/AdvReac Type Severity Reaction Status Date / Time Penicillins Allergy Rash Verified 05/31/19 03:57 Review of Systems Review of Systems ROS: Yes All systems reviewed with the patient and are negative except as otherwise documented Exam Vital Signs (past 8 hours): - 05/31/19 03:46 05/31/19 05:50 05/31/19 06:30 Temperature 99.6 F Pulse Rate 111 H 96 H 93 H Respiratory Rate 18 14 18 Blood Pressure 150/80 H Blood Pressure [Right Arm] 160/83 H 158/88 H Pulse Oximetry 98 92 94 Oxygen Delivery Method Nasal Cannula Oxygen Flow Rate 2 Narrative Exam Narrative: Gen: Alert, oriented, obese 69 y.o. female, NAD HEENT: normocephalic, atraumatic, conjunctiva clear, sclera non-icteric, oral mucosa pink and moist Neck: supple, full ROM, no JVD Resp: Lungs CTA, non-labored breathing CV: Irregularly irregular, no murmur or rubs Abd: soft, non-tender, normoactive BTs Skin: Left leg is significantly larger than the right with +for nonpitting edema no lesions or rashes, dry and intact Neuro: left-sided paralysis, alert and oriented X 4 Extremities: moves all 4 extremities, is ambulatory, negative Rosana?s sign Psyche: very pleasant, normal mood and affect. Objective Labs Result Diagrams: 05/31/19 04:05 05/31/19 04:05 Labs: Laboratory Results - last 24 hr 05/31/19 05/31/19 05/31/19 04:05 04:05 04:05 WBC 13.0 H RBC 3.81 L Hgb 11.7 L Hct 36.8 MCV 96.6 MCH 30.8 MCHC 31.9 RDW 16.0 H Plt Count 316 Neut % (Auto) 72.6 Lymph % (Auto) 12.7 L [place] % (Auto) 11.9 Eos % (Auto) 2.1 Baso % (Auto) 0.7 Neut # (Auto) 9400 H Lymph # (Auto) 1700 [place] # (Auto) 1600 H Eos # (Auto) 300 Baso # (Auto) 100 PT 21.1 H INR 1.9 H Sodium 143 Potassium 4.7 Chloride 110 H Carbon Dioxide 21 L BUN 35 H Creatinine 1.07 H Estimated GFR 50.8 L BUN/Creatinine Ratio 32.7 H Glucose 115 H Calcium 10.1 Ferritin Total Creatine Kinase 33 CK-MB (CK-2) TNP CK-MB (CK-2) Rel Index TNP Troponin I < 0.012 C-Reactive Protein NT-Pro-B Natriuret Pep 4490 H Procalcitonin Digoxin 05/31/19 05/31/19 05/31/19 04:37 04:37 04:37 WBC RBC Hgb Hct MCV MCH MCHC RDW Plt Count Neut % (Auto) Lymph % (Auto) [place] % (Auto) Eos % (Auto) Baso % (Auto) Neut # (Auto) Lymph # (Auto) [place] # (Auto) Eos # (Auto) Baso # (Auto) PT INR Sodium Potassium Chloride Carbon Dioxide BUN Creatinine Estimated GFR BUN/Creatinine Ratio Glucose Calcium Ferritin 95 Total Creatine Kinase CK-MB (CK-2) CK-MB (CK-2) Rel Index Troponin I C-Reactive Protein 6.5 H NT-Pro-B Natriuret Pep Procalcitonin < 0.05 Digoxin 1.4 Assessment & Plan Assessment & Plan narrative: Regina Capellan is a 69-year-old female with chronic atrial fibrillation and will be admitted inpatient on amiodarone drip until she converts. Due to vague respiratory symptoms and a suspicious CT, she has been swabbed for COVID-19 and will be on droplet precautions. Acute on chronic atrial fibrillation, present on admission -patient will be continued on an amiodarone drip. She states that she does not respond to diltiazem -last medication of record she was taking metoprolol 100 mg p.o. t.i.d., digoxin 0125 mg p.o. daily and diltiazem 240 mg p.o. b.i.d. she will be resumed on these medications once they have been confirmed. -She continued on her home dose of rivaroxaban 20 mg p.o. daily Acute on chronic congestive heart failure with the proBNP of 4490 -she was given IV Lasix in the ED and will be reassessed during the day for continued Lasix administration -I have scheduled her for complete echocardiogram this morning -1500 ml fluid restriction -continuous telemetry monitoring Mild hypoxia, dry cough, mildly febrile w/borderline lymphopenia -Swab for COVID-19 pending -respiratory panel and urine strep pending Consults: none Patient is placed into an inpatient ICU bed due being on a cardiac drip and requirement for continuous monitoring. Stay is likely to exceed 2 midnights. FEN: IV saline lock, low sodium diet, BMP in the am. VTE prophylaxis: Bilateral SCDs currently anticoagulated on home dose of rivaroxaban Dispo:Unknown at this time Code Status: DNR/DNI as discussed with patient.
--- NOTE | 2019-05-31 08:54 | CM.DANOTE ---
Discharge Planning/Care Management DCP: assessment: case received, EMR reviewed. COVID-19 rule out protocol is in process. PT is a 69 year old female who admitted early this mornin to care of the hospitalist team. PCP: listed as Sydni Thao. Payer: [facility] Medicare Advantage Admission status: in review: per UR FRANCISCO JAVIER Chávez Pt with history of Afib on Xarelto. Hx CVA with L side affected. Hx CHF. Pt is currently on o2 at 2 L NC. Next of Kin: listed as Sylvie [place]: [place]: cell: [phone]. P: discuss in Team Rounds with hospitalist. Reach out to family and/or to patient if she is well enough for conversation and able to talk on her phone for introduction of self and role and to gather more information to help with d/c issues and options. CM Discharge Assessment Start: 05/31/19 08:49 Freq: Status: Active Protocol: Document 05/31/19 08:50 ITV (Rec: 05/31/19 08:54 ITV [id number]) Discharge Planning Assessment Advance Directives? Yes History Provided By Medical Record Household Members family Comment per documenation in H&P: lives with daughter, son-in -law and their school age children Plan to confirm when able to reach someone for discussion. Is patient alert and oriented? Yes Review Status In Process
[2019-05-31 10:30] LABS: Troponin I 0.018 ng/mL (0.01-0.034)
[2019-05-31] MEDS: RIVAROXABAN 10 MG TABLET 20 MG PO (10:40)
[2019-05-31] MEDS: AMIODARONE 360 MG/200 ML PIGGYBACK 16.7 MG IV ×2 (11:11→22:29)
[2019-05-31 11:16] LABS: Adenovirus Not Detected (Not Detect); Bordetella pertussis Not Detected (Not Detect); Chlamydophila pneumoniae Not Detected (Not Detect); Coronavirus 229E Not Detected (Not Detect); Coronavirus HKU1 Not Detected (Not Detect); Coronavirus NL 63 Not Detected (Not Detect); Coronavirus OC43 Not Detected (Not Detect); Human Metapneumovirus Not Detected (Not Detect); Human Rhinovirus/Enterovirus Not Detected (Not Detect); Influenza A Not Detected (Not Detect); Influenza B Not Detected (Not Detect); Mycoplasma pneumoniae Not Detected (Not Detect); Parainfluenza Virus 1 Not Detected (Not Detect); Parainfluenza Virus 2 Not Detected (Not Detect); Parainfluenza Virus 3 Not Detected (Not Detect); Parainfluenza Virus 4 Not Detected (Not Detect); Respiratory Syncytial Virus Not Detected (Not Detect)
[2019-05-31 12:02] LABS: Free T4, Direct Thyroxine 1.19 ng/dL (0.78-2.19)
[2019-05-31 12:13] LABS: Magnesium 2.2 mg/dL (1.6-2.3)
[2019-05-31 12:15] LABS: Thyroid Stimulating Hormone 3.59 uIU/mL (0.47-4.68)
[2019-05-31 12:42] LABS: HCO3 ABG 27 mmol/L (22-26); Oxygen Saturation ABG 96 % (95-100); PCO2 ABG 33.1 mmHg (35-45); PO2 ABG 74 mmHg (80-100); TCO2 ABG 28 mmol/L (21-31); pH ABG 7.52 (7.35-7.45)
[2019-05-31 12:43] LABS: Fractionated Inspired Oxygen 0.32
[2019-05-31] MEDS: METOPROLOL IR 50 MG TABLET 100 MG PO ×2 (13:25→20:18)
[2019-05-31] MEDS: DIVALPROEX DR 250 MG TABLET 500 MG PO ×2 (13:27→20:18)
[2019-05-31] MEDS: ACETAMINOPHEN 325 MG TABLET 650 MG PO (13:30)
--- NOTE | 2019-05-31 14:06 | PC.ADMIT ---
[id number] Admission Note: The patient,Regina Capellan,69 y/o, was given written information regarding hospital policies, unit procedures and contact persons. Patient's smoking status: Former smoker. Vital Signs - 8 hr 05/31/19 06:30 05/31/19 07:34 05/31/19 08:30 Temperature 99.1 F Pulse Rate 93 H 92 H 117 H Respiratory Rate 18 21 23 Blood Pressure 155/70 H 192/92 H Blood Pressure [Right Arm] 158/88 H Pulse Oximetry 94 93 93 05/31/19 09:00 05/31/19 10:00 05/31/19 11:00 Temperature 98.7 F 98.7 F Pulse Rate 119 H 110 H 86 Respiratory Rate 22 19 Blood Pressure 168/97 H 164/74 H 154/71 H Blood Pressure [Right Arm] Pulse Oximetry 94 94 Rec'd pt from ED to room 231 at 0800. Pt AO x4 and making needs known with clear/logical speech. Oriented to room, environment. Educated to fall risk, use of call light, isolation precautions, medications. Noted to be Afib RVR. Continuing on amio gtt for rate control. HTN noted. Med rec completed. Clarified orders with Dr. Mejia re admission status and continuation of amio gtt. Orders received. Pt noted to have decreased SPO2 to 84-85% on 2L NC while sleeping. Increased to 3L and noted SPO2 83% after a few minutes (pt still asleep). Awoke pt and after 5 minutes, SPO2 increased to 93%. Pt denies hx of MARILY. Elevated HOB and instructed to deep breath. Notified Dr. Mejia and orders received to obtain an ABG. Continuing 3L NC to maintain sats. Bed rails x3 and call light in reach.
--- NOTE | 2019-05-31 18:54 | PC.NURSE ---
805- Dr. Mejia notified of low urine output. Order to encourage po fluid. Fluid restriction dc'd. Will monitor.
[2019-05-31] MEDS: dilTIAZem CD 240 MG CAP PO (20:18)
[2019-06-01] VITALS (19 sets, daily range): BP systolic 135–162; BP diastolic 69–85; PULSE 73–123; RESP 16–25; TEMP 36.3–36.9; O2SAT 92–96
[2019-06-01] MEDS: ACETAMINOPHEN 325 MG TABLET 650 MG PO ×2 (00:49→20:46)
--- NOTE | 2019-06-01 03:55 | PC.NURSE ---
0350 - Patient had 11 beat run of V-tach while sleeping. Remained asymptomatic with a blood pressure of 148/86. Denied chest pain or SOB. Event was self limiting and resumed AFIB CVR. Hospitalist Brayan notified of event.
[2019-06-01 08:04] LABS: Add Manual Diff / Slide Review NO; Basophils Absolute Auto 100 /uL (0-100); Basophils Percent Auto 0.9 % (0-2); Eosinophils Absolute Auto 300 /uL (0-450); Eosinophils Percent Auto 3.3 % (2-4); Hematocrit 32.2 % (36-46); Hemoglobin 10.7 g/dL (12.0-16.0); Lymphocytes Absolute Auto 1500 /uL (1100-4500); Lymphocytes Percent Auto 18.6 % (25-40); Mean Corpuscular HGB Conc 33.2 % (30-36); Mean Corpuscular Hemoglobin 31.5 PG (26-34); Mean Corpuscular Volume 94.7 fL (80-100); Monocytes Absolute Auto 1000 /uL (0-900); Monocytes Percent Auto 12.2 % (3-14); Neutrophils Absolute Auto 5300 /uL (1500-7000); Platelet Count 271 X10^3/uL (150-400); Red Cell Distribution Width 15.7 % (11.6-14.8); White Blood Cell Count 8.1 X10^3/uL (4.5-11.0)
[2019-06-01] MEDS: ROSUVASTATIN 10 MG TABLET 40 MG PO (08:09)
[2019-06-01] MEDS: dilTIAZem CD 240 MG CAP PO ×2 (08:10→20:47)
[2019-06-01] MEDS: SERTRALINE 50 MG TABLET PO (08:10)
[2019-06-01] MEDS: METOPROLOL IR 50 MG TABLET 100 MG PO ×3 (08:10→20:46)
[2019-06-01] MEDS: RIVAROXABAN 10 MG TABLET 20 MG PO (08:10)
[2019-06-01] MEDS: DIGOXIN 0.125 MG TABLET PO (08:11)
[2019-06-01] MEDS: DIVALPROEX DR 250 MG TABLET 500 MG PO ×3 (08:11→20:47)
[2019-06-01 08:13] LABS: BUN Creatinine Ratio 25.7 (6-22); Blood Urea Nitrogen 29 mg/dL (7-17); Calcium 9.3 mg/dL (8.4-10.2); Carbon Dioxide 31 mmol/L (22-32); Chloride 102 mmol/L (98-107); Estimated Glomerular Filt Rate 47.7 mL/min (>60); Glucose 129 mg/dL (80-110); HEMOLYSIS < 15 (0-50); Potassium 4.1 mmol/L (3.4-5.1); Sodium 139 mmol/L (137-145)
[2019-06-01 08:22] LABS: NT-proBNP (BNP-Adult 18+) 4150 pg/mL (<125)
--- NOTE | 2019-06-01 09:01 | P.PN_ITS ---
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 She was noted to be in AFib with RVR although she is chronically in AFib. Also noted to have bilateral lung infiltrates concerning for pneumonia and on the floor was dropping her O2 sats to low 80s when asleep. Patient states she has improvement in her dyspnea. She had 11 beat run of V- tach at around 3:00 a.m.. Exam Vital Signs (past 8 hours): - 06/01/19 02:00 06/01/19 03:00 06/01/19 04:00 Temperature 97.8 F Pulse Rate 73 97 H Respiratory Rate 21 Blood Pressure 151/76 H 161/69 H 139/80 Pulse Oximetry 95 06/01/19 06:00 06/01/19 07:00 06/01/19 08:00 Temperature 98.4 F Pulse Rate 121 H Respiratory Rate 25 H Blood Pressure 140/79 135/81 160/69 H Pulse Oximetry 96 06/01/19 08:11 Temperature Pulse Rate 119 H Respiratory Rate Blood Pressure Pulse Oximetry Oxygen Delivery Method Nasal Cannula Oxygen Flow Rate 3 Narrative Exam Narrative: General: Alert very pleasant female who appears comfortable Lungs: Few scattered crackles in the lower lobes, no wheeze Heart: Irregularly irregular Extremities: No edema Neurological: Affect normal, sensorium intact, conversant, left hemiplegia due to previous CVA Objective Labs Result Diagrams: 06/01/19 07:54 06/01/19 07:54 Labs: Laboratory Results - last 24 hr 05/31/19 05/31/19 05/31/19 08:35 08:35 09:58 WBC RBC Hgb Hct MCV MCH MCHC RDW Plt Count Neut % (Auto) Lymph % (Auto) [place] % (Auto) Eos % (Auto) Baso % (Auto) Neut # (Auto) Lymph # (Auto) [place] # (Auto) Eos # (Auto) Baso # (Auto) ABG pH ABG pCO2 ABG pO2 ABG HCO3 ABG Total CO2 ABG O2 Saturation ABG Base Excess FiO2 Sodium Potassium Chloride Carbon Dioxide BUN Creatinine Estimated GFR BUN/Creatinine Ratio Glucose Calcium Magnesium Troponin I NT-Pro-B Natriuret Pep TSH 3.59 Free T4 1.19 Nasal Screen MRSA (PCR) Negative for mrsa Chlamy pneumoniae PCR Not detected Adenovirus (PCR) Not detected B.parapertussis DNA PCR Not detected Coronavirus OC43 (PCR) Not detected Coronavirus HKU1 (PCR) Not detected Coronavirus 229E (PCR) Not detected Coronavirus NL63 (PCR) Not detected Human Metapneumovir PCR Not detected Influenza Type A (PCR) Not detected Influenza Type B (PCR) Not detected M. pneumoniae (PCR) Not detected Parainfluenza 1 (PCR) Not detected Parainfluenza 2 (PCR) Not detected Parainfluenza 3 (PCR) Not detected Parainfluenza 4 (PCR) Not detected RSV (PCR) Not detected Entero/Rhino (PCR) Not detected 05/31/19 05/31/19 05/31/19 09:58 09:58 11:22 WBC RBC Hgb Hct MCV MCH MCHC RDW Plt Count Neut % (Auto) Lymph % (Auto) [place] % (Auto) Eos % (Auto) Baso % (Auto) Neut # (Auto) Lymph # (Auto) [place] # (Auto) Eos # (Auto) Baso # (Auto) ABG pH 7.52 H ABG pCO2 33.1 L ABG pO2 74 L ABG HCO3 27 H ABG Total CO2 28 ABG O2 Saturation 96 ABG Base Excess 4.0 H FiO2 0.32 Sodium Potassium Chloride Carbon Dioxide BUN Creatinine Estimated GFR BUN/Creatinine Ratio Glucose Calcium Magnesium 2.2 Troponin I 0.018 NT-Pro-B Natriuret Pep TSH Free T4 Nasal Screen MRSA (PCR) Chlamy pneumoniae PCR Adenovirus (PCR) B.parapertussis DNA PCR Coronavirus OC43 (PCR) Coronavirus HKU1 (PCR) Coronavirus 229E (PCR) Coronavirus NL63 (PCR) Human Metapneumovir PCR Influenza Type A (PCR) Influenza Type B (PCR) M. pneumoniae (PCR) Parainfluenza 1 (PCR) Parainfluenza 2 (PCR) Parainfluenza 3 (PCR) Parainfluenza 4 (PCR) RSV (PCR) Entero/Rhino (PCR) 06/01/19 06/01/19 07:54 07:54 WBC 8.1 RBC 3.40 L Hgb 10.7 L Hct 32.2 L MCV 94.7 MCH 31.5 MCHC 33.2 RDW 15.7 H Plt Count 271 Neut % (Auto) 65.0 Lymph % (Auto) 18.6 L [place] % (Auto) 12.2 Eos % (Auto) 3.3 Baso % (Auto) 0.9 Neut # (Auto) 5300 Lymph # (Auto) 1500 [place] # (Auto) 1000 H Eos # (Auto) 300 Baso # (Auto) 100 ABG pH ABG pCO2 ABG pO2 ABG HCO3 ABG Total CO2 ABG O2 Saturation ABG Base Excess FiO2 Sodium 139 Potassium 4.1 Chloride 102 Carbon Dioxide 31 BUN 29 H Creatinine 1.13 H Estimated GFR 47.7 L BUN/Creatinine Ratio 25.7 H Glucose 129 H Calcium 9.3 Magnesium Troponin I NT-Pro-B Natriuret Pep 4150 H TSH Free T4 Nasal Screen MRSA (PCR) Chlamy pneumoniae PCR Adenovirus (PCR) B.parapertussis DNA PCR Coronavirus OC43 (PCR) Coronavirus HKU1 (PCR) Coronavirus 229E (PCR) Coronavirus NL63 (PCR) Human Metapneumovir PCR Influenza Type A (PCR) Influenza Type B (PCR) M. 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 She was noted to be in AFib with RVR although she is chronically in AFib. Also noted to have diffuse bilateral lung infiltrates concerning for COVID-19 pneumonia and on the floor was dropping her O2 sats to low 80s when asleep. 1. Exacerbation of chronic atrial fibrillation, present on admission, active -patient is on multiple AV node blocking agents and stated she was treated with IV amiodarone drip in the past during AFib exacerbations, sees air tube releaser in [place] -increase in tachycardia is likely secondary to pneumonia and respiratory failure and patient can likely tolerate resting heart rate below 120 -received amiodarone 150 mg IV bolus then started on amiodarone drip which was discontinued on a.m. 06/01/2019 -continue metoprolol tartrate 100 mg t.i.d., diltiazem XT 200 40 mg b.i.d., digoxin 0.125 mg q.d. which is her home routine -continue Xarelto 20 mg q.d. -digoxin level 1.4 -TSH normal -TTE ordered 2. Episode of nonsustained V-tach -patient had 11 beat run of V-tach around 3:00 a.m. 06/01/2019 while on amiod arone drip -K+ 4.1, magnesium 2.2 -continue telemetry monitoring 3. Acute hypoxic respiratory failure, present on admission, active -ABG 7.516, pCO2 33, PO2 74 on 3 L NC, PaO2/FIO2 to 231 -noncontrast CT with diffuse ground-glass infiltrates consistent with COVID-19 pneumonia, less likely pulmonary edema due to CHF -WBC normal with lymphopenia, procalcitonin < 0.05, and patient has been afebrile -rule out COVID-19 -at this time not on antibiotics as there is no evidence of bacterial process 4. History of CHF, unknown type -takes furosemide 20 mg as needed only -received IV Lasix x1 in ED -NT proBNP 4150 -clinically she does not appear in CHF exacerbation -TTE ordered Code status: DNR/DNI as discussed with patient
--- NOTE | 2019-06-01 10:37 | CM.DPC ---
DCP: continued: case discussed in Team Rounds with Dr. Mejia. He confirms that pt it w/c bound at baseline but it is unclear if she is able to manage her every day activities including transfers by herself. COVID-19 test results are not yet received as of this time. Dr. Mejia has ordered PT and OT evals to start once the test results are in place. PT Hillary was part of [employer] and agreeable to same. Spoke now with pt's daughter Sylvie Zepeda, as planned. [phone]. Sylvie confirms that pt does live with her, her and their children. She says her mother is alert and oriented but does need quite a bit of physical assist. Pt gets around in a w/c. Is able to transfer herself from her w/c to the chair she likes to sit in but in all other mobility ways she needs family assist. They help her in and out of bed, to the bathroom. Provide help with dressing and hygiene. Shower assist.j Pt does feed herself with set up and can do things that involve her R hand. P: Sylvie confirms that they plan to take pt back home to continue this care once she is stable for same. She expressed thankfulness for the call and the care of her mother by the hospital.
--- NOTE | 2019-06-01 12:26 | PT-IP ANOTE ---
MD ordered for PT to start after COVID test results back. Pt does not have results back yet. Discussed with RN to notify PT if results back.
[2019-06-01] MEDS: FLEETS ENEMA 1 EACH PR (13:59)
--- NOTE | 2019-06-01 14:33 | PT-IP ANOTE ---
COVID testing still pending so follow up with pt in the AM.
--- NOTE | 2019-06-01 21:08 | PC.NURSE ---
2105- patient had 6 beats of Vtach. Vital signs wnl. Will monitor
[2019-06-02] VITALS (7 sets, daily range): BP systolic 135–153; BP diastolic 61–94; PULSE 74–98; RESP 18–24; TEMP 36–37.2; O2SAT 92–96
--- NOTE | 2019-06-02 06:49 | PC.NURSE ---
Hospitalist notified of low urine output of 150 and bladder scan of <130. Patient encouraged to drink fluids.
[2019-06-02] MEDS: dilTIAZem CD 240 MG CAP PO ×2 (08:48→21:07)
[2019-06-02] MEDS: METOPROLOL IR 50 MG TABLET 100 MG PO ×3 (08:49→21:07)
[2019-06-02] MEDS: ROSUVASTATIN 10 MG TABLET 40 MG PO (08:49)
[2019-06-02] MEDS: DIVALPROEX DR 250 MG TABLET 500 MG PO ×3 (08:49→21:09)
[2019-06-02] MEDS: DIGOXIN 0.125 MG TABLET PO (08:49)
[2019-06-02] MEDS: RIVAROXABAN 10 MG TABLET 20 MG PO (08:50)
[2019-06-02] MEDS: SERTRALINE 50 MG TABLET PO (08:50)
[2019-06-02] MEDS: ACETAMINOPHEN 325 MG TABLET 650 MG PO ×2 (09:15→21:09)
[2019-06-02 10:22] LABS: COVID19 Sendout NOT DETECTED
--- NOTE | 2019-06-02 11:19 | PC.NURSE ---
1000- Pt requests OOB to commode to have BM. Pt was able to sit up to edge of bed with min/CGA. Placed gait belt. Pt was able to stand and bear weight with right leg and pivot to BSC with 1PA. Pt states she occasionally needs to perform digital stimulation to have BM. She states she does this herself and is requesting glove. Provided glove/lube. Pt was able to have large/formed/hard brown BM. After, pt reports diaphoresis and dizziness. HR 116 afib BP 115/57 SPO2 96% RA RR 24. Assisted back to bed with 2PA for safety. Pt reports feeling better after laying down. Will monitor.
--- NOTE | 2019-06-02 12:34 | OT.IPNOTE ---
Spoke to pt's daughter and states prior pt just able to feed herself and take her meds after set-up, otherwise family assists with all transfers, dressing, and showering.
--- NOTE | 2019-06-02 12:39 | OT.IPNOTE ---
Pt's family states pt able to self feed and take her pills after set-up otherwise, pt needing assist for all dressing, toileting, bathing and shower needs. Therefore discharge OT eval orders at this time.
--- NOTE | 2019-06-02 14:06 | PT.IIE ---
Current Diagnoses Dyspnea, unspecified (05/31/19) Surgical History (Last Updated 05/31/19 @ 07:12 by CHRISS Maloney) Hx of cholecystectomy (Acute) Medical History (Last Updated 05/31/19 @ 07:11 by CHRISS Maloney) Atrial fibrillation (Acute) Congestive heart failure (Acute) CVA (cerebral vascular accident) (Acute) History of CVA with residual deficit (Chronic) HLD (hyperlipidemia) (Chronic) Physical Therapy Inpatient Evaluation/Re-Eval M1 PT/OT-IP Prior Functional Status Start: 06/02/19 15:14 Freq: NEEDED Status: Active Protocol: Document 06/02/19 15:14 [facility] (Rec: 06/02/19 15:24 [facility] [id number]) Medical Review Prior Functional Status Medical History Reviewed Yes Diet/Fluid Consistency Regular Communication WNL Mobility and Gait Pt has been transfer with 1PA min A. Activities of Daily Living and IADL's has help with ADLs from family Social History Household Members family Living Arrangements House Number of Floors (Floors) Two Floors Number of Stairs To Enter/Railing? 2STE that family helps her up in her WC Home Environment High Toilet,Walk in Shower Home Equipment Grab Bars Near Toilet,Grab Bars In Shower Additional Social History Comment Pt showers in w/c so is wheeled in. M2 PT-IP Current Condition Start: 06/02/19 15:14 Freq: NEEDED Status: Active Protocol: Document 06/02/19 15:14 [facility] (Rec: 06/02/19 15:24 [facility] [id number]) Physical Therapy Current Condition Current Condition Evaluation Date 06/02/19 Treatment Diagnosis SOB M3 PT-IP Subjective Start: 06/02/19 15:14 Freq: NEEDED Status: Active Protocol: Document 06/02/19 15:14 [facility] (Rec: 06/02/19 15:24 [facility] [id number]) Subjective Physical Therapy Visit Type Type Initial Evaluation Visit Start Time 13:30 Visit Stop Time 14:06 Total Visit Minutes 36 Physical Therapy Visit Comments Patient Comments Pt agreeable with PT. Reprots family helps a lot so does not forsee any issues at home. M4 PT-IP Mobility and Gait Start: 06/02/19 15:14 Freq: NEEDED Status: Active Protocol: Document 06/02/19 15:14 [facility] (Rec: 06/02/19 15:24 [facility] [id number]) PT-Bed Mobility Assessment Supine to Sit Supine to Sit Standby Assistance,Head of Bed Elevated,Bedrails Scooting Scooting to Edge of Bed Standby Assistance PT-Transfer Assessment Sit to and From Stand Sit to and from Stand Minimal Assistance Equipment Transfer Assistive Device Gait Belt Transfers Transfer Destination Chair Transfer Technique Stand Pivot Transfer Ability Level of Assist Minimal Assistance Comments Mobility Comments Pt transfered with min A to chair and stood 2x from chair with min A to partial stand to fix cords Gait Assessment Comments Gait Comments n/a M5 PT-IP Objective Assessments Start: 06/02/19 15:14 Freq: NEEDED Status: Active Protocol: Document 06/02/19 15:14 [facility] (Rec: 06/02/19 15:24 [facility] [id number]) Orientation Orientation/Cognition Level of Alertness Alert Language Function Ability No Deficits Noted Safety Awareness Understands Safety Issues Memory Description No Deficits Noted Gross Range of Motion Lower Extremity ROM Assessment Left Impaired Strength Lower Extremity Strength Assessment Left Impaired M6 PT-IP Treatment Start: 06/02/19 15:14 Freq: NEEDED Status: Active Protocol: Document 06/02/19 15:14 [facility] (Rec: 06/02/19 15:24 [facility] [id number]) Physical Therapy Treatment Education Education Provided Safety M7 PT-IP Assessment and Plan Start: 06/02/19 15:14 Freq: NEEDED Status: Active Protocol: Document 06/02/19 15:14 [facility] (Rec: 06/02/19 15:24 [facility] [id number]) PT Summary Assessment and Plan Potential Rehabilitation Potential Excellent Status of Condition at Evaluation Stable Summary Impairments Transfers Assessment Summary Pt is at baseline per her's and family's report. At this time she is d/c from PT as she is at her baseline and is understanding of how to transfer safely at home. She has supportive family that will continue to be able to provide / care at this time . Frequency of Treatment Frequency Of Treatment Discharge Recommendations To Nursing Amount of Assist Needed 1 Person Assist Discharge Recommendations PT Discharge Recommendations Home with Assistance Transportation Needs at Discharge Private Vehicle
--- NOTE | 2019-06-02 17:02 | PM.PN.1 ---
Subjective Subjective Date Patient Seen: 06/02/19 Interval history: Patient is a 69-year-old female admitted to the hospital with atrial fibrillation and RVR. In addition she is being treated for pneumonia, hypoxia and rule out today for COVID-19. Heart rate has been well controlled on her current regimen. Patient is now off oxygen. She has no further complaints Exam Vital Signs (past 8 hours): - 06/02/19 12:17 06/02/19 16:00 06/02/19 16:46 Temperature 98.9 F 97.6 F 97.6 F Pulse Rate 81 98 H 74 Respiratory Rate 21 18 19 Blood Pressure 141/62 H 142/65 H 142/65 H Pulse Oximetry 92 95 95 Oxygen Delivery Method Nasal Cannula Oxygen Flow Rate 0 Narrative Exam Narrative: Delightful female lying in bed in no obvious distress Lungs: Clear to auscultation Cardiac exam: Irregularly irregular, normal S1-S2, 2/6 systolic ejection murmur Abdomen: Soft nontender nondistended Extremities: No edema, left upper extremity marked hemiparesis Objective Labs Result Diagrams: 06/01/19 07:54 06/01/19 07:54 Labs: Laboratory Results - last 24 hr 05/31/19 06:50 COVID-19 PCR Not detected Assessment & Plan Assessment & Plan narrative: Assessment & Plan narrative: 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 She was noted to be in AFib with RVR although she is chronically in AFib. Also noted to have diffuse bilateral lung infiltrates concerning for COVID-19 pneumonia and on the floor was dropping her O2 sats to low 80s when asleep. 1. Exacerbation of chronic atrial fibrillation, present on admission, active -echocardiogram reveals normal EF -patient has severe biatrial enlargement -patient very likely will need ablation and possible pacemaker placement long-term. -current medical regimen is controlling her rate quite nicely -patient will follow-up with her dry dip worker and Radha at discharge. 2. Episode of nonsustained V-tach -patient had 11 beat run of V-tach around 3:00 a.m. 06/01/2019 while on amiodarone drip -K+ 4.1, magnesium 2.2 -continue telemetry monitoring -no further V-tach -amiodarone drip discontinue 3. Acute hypoxic respiratory failure, present on admission, active -ABG 7.516, pCO2 33, PO2 74 on 3 L NC, PaO2/FIO2 to 231 -noncontrast CT with diffuse ground-glass infiltrates consistent with COVID-19 pneumonia, less likely pulmonary edema due to CHF -WBC normal with lymphopenia, procalcitonin < 0.05, and patient has been afebrile -COVID-19 negative -at this time not on antibiotics as there is no evidence of bacterial process 4. History of CHF, unknown type -takes furosemide 20 mg as needed only -received IV Lasix x1 in ED -NT proBNP 4150 -clinically she does not appear in CHF exacerbation -echo as above, patient with congestive heart failure with preserved ejection fraction she has significant biatrial enlargement. Patient has made significant improvement, anticipate discharge home tomorrow.
[2019-06-03] VITALS: BP 123/70; PULSE 74; RESP 16; TEMP 36.2; O2SAT 95
--- NOTE | 2019-06-03 01:01 | PM.EVENT ---
Event Note Date Patient Seen: 06/03/19 Time Patient Seen: 01:35 Event Note: Patient reported to me to be desaturating, reviewing the monitor she was into the low to mid 80s. She was snoring in the room, nurse put on 2L and she went up to 95%. Denies ever being told she stops breathing. She seemed comfortable and engaged in conversation. Likely would benefit from a sleep study outpatient.
--- NOTE | 2019-06-03 01:36 | PC.NURSE ---
Certified Appliance Service Technician Note: 0045: Awake, resting in bed. Vital signs stable. IV in place in rt AC. SCDs on. Remains on telemetry. Pt denies pain or discomfort. She desats when sleeping, down to 86%: CHRISS Jensen notified and is here to assess pt. Placed on O2 2L/NC as ordered.
[2019-06-03 04:00] VITALS: BP 125/78; PULSE 93; RESP 28; TEMP 36.2; O2SAT 97
[2019-06-03 05:46] LABS: BUN Creatinine Ratio 23.4 (6-22); Blood Urea Nitrogen 26 mg/dL (7-17); Calcium 9.3 mg/dL (8.4-10.2); Carbon Dioxide 27 mmol/L (22-32); Chloride 105 mmol/L (98-107); Estimated Glomerular Filt Rate 48.7 mL/min (>60); Glucose 90 mg/dL (80-110); HEMOLYSIS < 15 (0-50); Sodium 140 mmol/L (137-145)
[2019-06-03 08:00] VITALS: BP 163/79; PULSE 84; RESP 18; TEMP 36.1; O2SAT 94
[2019-06-03 08:31] VITALS: PULSE 110
[2019-06-03] MEDS: DIGOXIN 0.125 MG TABLET PO (08:31)
[2019-06-03] MEDS: DIVALPROEX DR 250 MG TABLET 500 MG PO (08:31)
[2019-06-03] MEDS: FUROSEMIDE 20 MG/2 ML VIAL IV (08:31)
[2019-06-03] MEDS: RIVAROXABAN 10 MG TABLET 20 MG PO (08:31)
[2019-06-03] MEDS: dilTIAZem CD 240 MG CAP PO (08:31)
[2019-06-03] MEDS: METOPROLOL IR 50 MG TABLET 100 MG PO (08:31)
[2019-06-03] MEDS: SERTRALINE 50 MG TABLET PO (08:32)
[2019-06-03] MEDS: ROSUVASTATIN 10 MG TABLET 40 MG PO (08:32)
--- NOTE | 2019-06-03 08:48 | PM.DS.1 ---
History of Present Illness History of Present Illness Date Patient Seen: 06/03/19 Chief complaint: SOB Narrative: Regina Capellan is a 69-year-old female with the previous CVA affecting her left side, chronic atrial fibrillation, congestive heart failure, and hyperlipidemia presented with shortness of breath to the emergency department and was found to be in atrial fibrillation. She stated that she had shortness of breath both at rest and when active. She denies fever, sweats or chills. She denies chest pain, nausea vomiting, abdominal pain, dysuria, diarrhea or constipation. She is paralyzed on left side but denies any abnormal neurological sensations on the right. Patient has not had any sick contacts, though lives with her daughter, son-in-law and school aged children. 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 Discharge Providers Provider Date of admission: 05/31/19 06:25 Discharge Date: 06/03/19 Primary care physician: Sydni Thao MD Consults: 06/01/19 10:31 Consult to Occupational Therapy Evaluate & Treat Comment: after COVID-19 test results are in. Physician Instructions: Evaluate and treat Consult to Physical Therapy Evaluate & Treat Comment: Physician Instructions: Evaluate and Treat 06/01/19 10:36 Consult to Physical Therapy Evaluate & Treat Comment: hold PT until COVID-19 results are received. Physician Instructions: Evaluate and Treat Discharge provider: Sharee Dubon MD Summary Hospital Course Discharge Diagnosis: 1. Atrial fibrillation with a rapid ventricular response rate 2. Congestive heart failure with preserved ejection fraction, echocardiogram reveals ejection fraction 55-60%, dilated left atrium, moderate to severe dilated right atrium, mild aortic stenosis, mild aortic insufficiency, moderate mitral regurgitation 3. Ground-glass opacification with bilateral effusions on chest CT, patient is coded negative 4. Probable sleep apnea 5. History of CVA Hospital Course: The patient is a 69-year-old female who was admitted to the hospital with acute abrupt onset of shortness of breath. The patient has known atrial fibrillation. She developed rapid ventricular response rate of 180 with minimal improvement. She had a chest x-ray initially which showed bilateral ground-glass opacities. There was concern regarding COVID-19. Patient had a CT scan of the chest that showed ground-glass opacification, small bilateral effusions, cardiomegaly, a reactive mediastinal and hilar nodes, there was some dilation of the ascending thoracic aorta. The patient was given IV Lasix. Her BNP initially was 4400, repeat BNP was 4 150. She responded well to the IV Lasix. She was found however to become hypoxic at night when sleeping. Her O2 sat which dropped to 85%. Patient was suspected to have obstructive sleep apnea at night. I discussed this with her. She elected to defer home CPAP at this time but will follow-up with her primary care physician for an outpatient sleep study. Patient's heart rate ultimately was controlled with her usual home regimen. She was deemed appropriate for discharge. Her shortness of breath was resolved. Her COVID-19 study was negative. Patient was discharged home and will follow-up with her PCP next week. Status at Discharge Cognitive/behavioral status at discharge: oriented Functional status at discharge: independent ambulation Overall status at discharge: patient is back to baseline Time Spent with Patient Time spent: Less than 30 minutes Exam Vital Signs (past 8 hours): - 06/03/19 04:00 06/03/19 08:00 06/03/19 08:31 Temperature 97.1 F L 96.9 F L Pulse Rate 93 H 84 110 H Respiratory Rate 28 H 18 Blood Pressure 125/78 163/79 H Pulse Oximetry 97 94 Oxygen Delivery Method Nasal Cannula Oxygen Flow Rate 0 Narrative Exam Narrative: Pleasant female in no acute distress Lungs: Decreased breath sounds with occasional scattered crackles Cardiac exam: Irregularly irregular, normal S1-S2, 2/6 systolic ejection Abdomen:, soft nontender nondistended Extremities:, no edema Objective Labs Result Diagrams: 06/01/19 07:54 06/03/19 04:52 Labs: Laboratory Results - last 24 hr 05/31/19 06/03/19 06:50 04:52 Sodium 140 Potassium 4.0 Chloride 105 Carbon Dioxide 27 BUN 26 H Creatinine 1.11 H Estimated GFR 48.7 L BUN/Creatinine Ratio 23.4 H Glucose 90 Calcium 9.3 COVID-19 PCR Not detected Discharge Plan Discharge Plan Patient Disposition: Home Discharge comment: Follow Up with Dr. Jara for outpatient sleep study to r/o Obstructive Sleep Apnea Discharge orders & Medications Prescriptions: Continued metoprolol tartrate 100 mg Tablet 100 mg PO TID RF: 0 divalproex 500 mg Tablet,Delayed Release (Dr/Ec) 500 mg PO TID RF: 0 vitamin B complex Tablet 1 tab PO DAILY RF: 0 folic acid 1 mg Tablet 1 mg PO DAILY RF: 0 digoxin 125 mcg Tablet 0.125 mg PO DAILY RF: 0 furosemide 20 mg Tablet 20 mg PO PRN PRN (Reason: Edema) RF: 0 sertraline 50 mg Tablet 50 mg PO DAILY RF: 0 diltiazem HCl 240 mg Tablet Extended Release 24 Hr 240 mg PO BID RF: 0 rosuvastatin [Crestor] 40 mg Tablet 40 mg PO DAILY RF: 0 cholecalciferol (vitamin D3) [Vitamin D3] 5,000 unit Tablet 5,000 unit PO DAILY RF: 0 niacin 1,000 mg Tablet Extended Release 1,000 mg PO BID RF: 0 Xarelto 20 mg Tablet 20 mg PO DAILY RF: 0 potassium chloride 10 mEq Tablet Extended Release 10 meq PO PRN PRN (Reason: Electrolyte Replenishment) RF: 0 loratadine [Claritin] 10 mg Tablet 10 mg PO DAILY RF: 0 Follow up/Referrals: Sydni Thao MD [Primary Care Provider] - Discharge Health Status Multidrug resistant organism: No MDRO Diet/Activity/Treatments Diet: Low-sodium Activity: as tolerated Discharge Data Primary Care Provider: Sydni Thao
--- NOTE | 2019-06-03 09:18 | CM.DPC ---
DCP Cont: Patient is to be discharged home today. She has also been cleared by P.T. She resides with her daughter, and grand children, and does have family support. P: Patient is to be discharged home today. Dolores Snow RN/[employer] Ripening Room Supervisor
== END 2019-06-03 10:30 | disposition home or self-care (01) | DRG 308 ==
LOC: ED 05:32 → ICU 09:06 → AC 06-01 11:35 → ICU 06-01 11:35
PROVIDERS: Internal Medicine; Admitting Provider Nurse Practitioner Family; Emergency Provider Emergency Medicine; PCP Internal Medicine; Referring Provider Emergency Medicine; Visit Provider Nurse Practitioner Family
DX: I48.19 Other persistent atrial fibrillation (principal); J96.01 Acute respiratory failure with hypoxia; I50.33 Acute on chronic diastolic (congestive) heart failure; I69.354 Hemiplegia and hemiparesis following cerebral infarction affecting left non-dominant side; Z79.01 Long term (current) use of anticoagulants; I47.2 Ventricular tachycardia; G47.33 Obstructive sleep apnea (adult) (pediatric); Z03.818 Encounter for observation for suspected exposure to other biological agents ruled out; E78.5 Hyperlipidemia, unspecified; Z87.891 Personal history of nicotine dependence; Z66 Do not resuscitate
CPT/HCPCS: 36415; 36600; 71045; 71250; 80048; 80162; 82550; 82728; 82805; 83735; 83880; 84145; 84439; 84443; 84484; 85025; 85610; 86140; 87633; 87635; 87797; 87899; 93005; 93306; 94760; 96365; 96366; 96375; 97161; 99285; J0282; J1940; Q9957

== ENCOUNTER → 2019-09-02 08:37 | Outpatient (CLI) | payer OTHER, SELFPAY ==
[2019-05-31 08:30] VITALS: BMI 29.2
[2019-09-03 20:31] LABS: COVID19 Sendout Not Detected (Not Detect)
== END ==
PROVIDERS: PCP Internal Medicine; Visit Provider Physician Assistant
DX: Z01.812 Encounter for preprocedural laboratory examination (principal)
CPT/HCPCS: 87635

== ENCOUNTER → 2019-09-05 12:48 | Outpatient (CLI) | payer OTHER, SELFPAY ==
[2019-05-31 08:30] VITALS: BMI 29.2
--- NOTE | 2019-09-10 09:07 | PM.PFT.1 ---
Pulmonary Function Test Referral & Results Date Patient Seen: 09/05/19 Requesting provider: Sydni Thao Results: The spirometry demonstrates an FVC of 1.74 L which is 52% of predicted. The FEV1 was measured at 1.63 L which is 65% of predicted. The FEV1/FVC ratio was 94 which is 123% of predicted. Following the administration of bronchodilator there was no appreciable change. No lung volumes were performed, due to patient being wheelchair-bound and unable to transfer into the body box The diffusing capacity was measured at 13.37 which is 49% of predicted. No hemoglobin value was provided, so no correction for potential anemia could be made, if appropriate. Interpretation: This study demonstrates a reduction FEV1 but an increased FEV1/FVC ratio, which would be consistent with an early interstitial process which is further demonstrated by a significant defect in the diffusing capacity suggesting disease at the capillary alveolar level as well. Overall this study demonstrates moderately severe restrictive lung disease and perhaps some mild element of obstructive lung disease.
== END ==
LOC: RESP 12:51
PROVIDERS: PCP Internal Medicine; Referring Provider Internal Medicine; Visit Provider Internal Medicine
DX: R91.8 Other nonspecific abnormal finding of lung field (principal); Z87.891 Personal history of nicotine dependence
CPT/HCPCS: 94060; 94729

== ENCOUNTER 2019-10-15 11:31 | Emergency (ER) | payer OTHER, SELFPAY ==
[2019-05-31 08:30] VITALS: BMI 29.2
[2019-10-15] VITALS (9 sets, daily range): BP systolic 127–158; BP diastolic 63–74; PULSE 66–71; RESP 16; TEMP 37; O2SAT 96–99
[2019-10-15 12:08] LABS: Bacteria Urine Many (>30); Culture Indicated Urine Specimen Cultured; RBC Urine 30-100/HPF (0-5/HPF); Squamous Epithelial Cell Urine 0-1 /HPF (0-5/HPF); WBC Urine 30-100/HPF (0-5/HPF)
[2019-10-15 13:06] LABS: Add Manual Diff / Slide Review NO; Basophils Absolute Auto 100 /uL (0-100); Eosinophils Absolute Auto 100 /uL (0-450); Eosinophils Percent Auto 0.9 % (2-4); Hematocrit 38.4 % (36-46); Hemoglobin 12.8 g/dL (12.0-16.0); Lymphocytes Absolute Auto 1500 /uL (1100-4500); Lymphocytes Percent Auto 20.1 % (25-40); Mean Corpuscular HGB Conc 33.4 % (30-36); Mean Corpuscular Hemoglobin 32.4 PG (26-34); Monocytes Absolute Auto 500 /uL (0-900); Monocytes Percent Auto 6.8 % (3-14); Neutrophils Absolute Auto 5400 /uL (1500-7000); Neutrophils Percent Auto 71.2 % (50-75); Platelet Count 176 X10^3/uL (150-400); Red Blood Cell Count 3.96 X10^6/uL (4.0-5.2); Red Cell Distribution Width 15.5 % (11.6-14.8); White Blood Cell Count 7.6 X10^3/uL (4.5-11.0)
[2019-10-15 13:08] LABS: INR 1.1 (0.9-1.3); Prothrombin Time 12.1 SECONDS (10.1-12.7)
[2019-10-15 13:11] LABS: PTT Partial Thromboplastin Tim 35 SECONDS (26.4-36.2)
[2019-10-15 13:12] LABS: BUN Creatinine Ratio 19.5 (6-22); Blood Urea Nitrogen 24 mg/dL (7-17); Calcium 9.6 mg/dL (8.4-10.2); Carbon Dioxide 28 mmol/L (22-32); Chloride 104 mmol/L (98-107); Estimated Glomerular Filt Rate 43.3 mL/min (>60); Glucose 94 mg/dL (80-110); HEMOLYSIS < 15 (0-50); Sodium 140 mmol/L (137-145)
--- NOTE | 2019-10-15 13:34 | ED_ITS ---
HPI - Female Genitourinary <CHRISS Lindsey - Last Filed: 10/16/19 01:06> General Chief complaint: Urogenital-Female Stated complaint: hematuria/burning x2 days Time Seen by Provider: 10/15/19 11:57 Source: patient Mode of arrival: Wheelchair Limitations: no limitations History of Present Illness HPI Narrative: This is a 69-year-old female, nonsmoker, who has history of AFib and CVA and currently takes Xarelto presents to ED with family member with chief complain of burning sensation with urination, hematuria and pressure-like discomfort in her bladder for last 2 days. Patient denies fever, chills, nausea, vomiting, or flank pain. Patient reports had worse type of UTI/bladder infection in the past but no hospitalization from this. Patient reports dark red urine she noticed. Patient denies other bleeding, increase in bruising that she noticed. Patient reports has an appointment with milking machine mechanic and [facility] on 10/20/2019. Patient denies chest pain, dyspnea, dizziness. Related Data Home Medications Medication Instructions Recorded Confirmed Xarelto 20 mg PO DAILY 12/16/17 05/31/19 cholecalciferol (vitamin D3) 5,000 unit PO DAILY 12/16/17 05/31/19 [Vitamin D3] digoxin 0.125 mg PO DAILY 12/16/17 05/31/19 diltiazem HCl 240 mg PO BID 12/16/17 05/31/19 divalproex 500 mg PO TID 12/16/17 05/31/19 folic acid 1 mg PO DAILY 12/16/17 05/31/19 furosemide 20 mg PO PRN PRN 12/16/17 05/31/19 metoprolol tartrate 100 mg PO TID 12/16/17 05/31/19 niacin 1,000 mg PO BID 12/16/17 05/31/19 potassium chloride 10 meq PO PRN PRN 12/16/17 05/31/19 rosuvastatin [Crestor] 40 mg PO DAILY 12/16/17 05/31/19 sertraline 50 mg PO DAILY 12/16/17 05/31/19 vitamin B complex 1 tab PO DAILY 12/16/17 05/31/19 loratadine [Claritin] 10 mg PO DAILY 05/31/19 05/31/19 Allergies Allergy/AdvReac Type Severity Reaction Status Date / Time Penicillins Allergy Rash Verified 09/02/19 08:48 Review of Systems <CHRISS Lindsey - Last Filed: 10/16/19 01:06> Review of Systems Narrative: General: Denies fever, chills, fatigue, malaise, sweats. HEENT: Denies sinus pain, ear pain, sore throat, difficulty swallowing, dizziness. Respiratory: Denies dyspnea, cough, wheezing, hemoptysis, sputum. Cardiovascular: Denies chest pain, palpitations, orthopnea, edema. Gastrointestinal: Denies nausea, vomiting, abdominal pain, diarrhea, constipation, melena. : See HPI Musculoskeletal: Denies weakness, joint pain or bony pain. Skin: Denies rash, skin lesions, or increased bruising or bleeding. Neurologic: Denies weakness, headache, numbness, change in speech, confusion, seizures, incoordination. Psychiatric: No concerning psychosocial issues. 12-point review of systems is negative except for those stated above. Patient History <CHRISS Lindsey - Last Filed: 10/16/19 01:06> Medical History Atrial fibrillation (Acute) Congestive heart failure (Acute) CVA (cerebral vascular accident) (Acute) History of CVA with residual deficit (Chronic) HLD (hyperlipidemia) (Chronic) Surgical History Hx of cholecystectomy (Acute) alcohol intake frequency: holidays/special occasions only Substance Use Type: does not use Exam <CHRISS Lindsey - Last Filed: 10/16/19 01:06> Narrative Exam Narrative: General appearance: well developed, well nourished, in no acute distress. Head: normocephalic, atraumatic, no scalp lesions, non-tender. ENT: Hearing grossly intact. Nose without bleeding, purulent discharge. Airway patent. Neck/Thyroid: neck supple, full range of motion, no visible masses or meningeal signs. No JVD, non-tender without lymphadenopathy. Skin: no suspicious rashes, lesions over visible areas. Warm and dry and appropriate color for ethnicity. Heart: no clubbing, no cyanosis, no edema. RRR w/o murmurs, clicks, or bruits. Lungs: Breathing even and unlabored. No stridor. No accessory muscles used. Able to speak in full sentences. Chest: normal shape and expansion. Abdomen: non-obese, non-distended, non-tender. Neurologic: alert and oriented. 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 Psych: good eye contact, normal affect. Initial Vital Signs Initial Vital Signs: Vital Signs Temperature 98.6 F 10/15/19 11:39 Pulse Rate 69 10/15/19 11:39 Respiratory Rate 16 10/15/19 11:39 Blood Pressure 152/70 H 10/15/19 11:39 Pulse Oximetry 96 10/15/19 11:39 <Ambrocio Lund MD - Last Filed: 10/21/19 03:41> Initial Vital Signs Initial Vital Signs: Vital Signs Temperature 98.6 F 10/15/19 11:39 Pulse Rate 69 10/15/19 11:39 Respiratory Rate 16 10/15/19 11:39 Blood Pressure 152/70 H 10/15/19 11:39 Pulse Oximetry 96 10/15/19 11:39 Scores <CHRISS Lindsey - Last Filed: 10/16/19 01:06> GCS [place] coma scale eye opening: Spontaneous [place] coma scale verbal response: Orientated [place] coma scale motor response: Obey commands Alyssa coma scale total score: 15 qSOFA Altered Mental Status (GCS <15): No Respiratory rate greater than/equal to 22: No Systolic blood pressure less than or equal to 100: No qSOFA Total: 0 0-1 Not High Risk 1-3 High risk Course <CHRISS Lindsey - Last Filed: 10/16/19 01:06> Orders Ordered: Discontinued Medications Cephalexin HCl (Keflex) 500 mg PO NOW ONE Stop: 10/15/19 13:39 Last Admin: 10/15/19 14:07 Dose: Not Given Documented by: KENTON Nitrofurantoin Macrocrystals (Macrobid 100 Mg Capsule) 100 mg PO NOW ONE Stop: 10/15/19 13:52 Last Admin: 10/15/19 14:05 Dose: 100 mg Documented by: KENTON Trimethoprim/Sulfamethoxazole (Bactrim Ds) 1 tab PO NOW ONE Stop: 10/15/19 13:45 Last Admin: 10/15/19 14:06 Dose: Not Given Documented by: KENTON Vital Signs Vital signs: Vital Signs - 8 hr 10/15/19 11:39 Temperature 98.6 F Pulse Rate 69 Respiratory Rate 16 Blood Pressure 152/70 H Pulse Oximetry 96 <Ambrocio Lund MD - Last Filed: 10/21/19 03:41> Orders Ordered: Discontinued Medications Cephalexin HCl (Keflex) 500 mg PO NOW ONE Stop: 10/15/19 13:39 Last Admin: 10/15/19 14:07 Dose: Not Given Documented by: KENTON Nitrofurantoin Macrocrystals (Macrobid 100 Mg Capsule) 100 mg PO NOW ONE Stop: 10/15/19 13:52 Last Admin: 10/15/19 14:05 Dose: 100 mg Documented by: KENTON Trimethoprim/Sulfamethoxazole (Bactrim Ds) 1 tab PO NOW ONE Stop: 10/15/19 13:45 Last Admin: 10/15/19 14:06 Dose: Not Given Documented by: KENTON Vital Signs Vital signs: Vital Signs - 8 hr 10/15/19 11:39 Temperature 98.6 F Pulse Rate 69 Respiratory Rate 16 Blood Pressure 152/70 H Pulse Oximetry 96 MDM - Female Genitourinary <CHRISS Lindsey - Last Filed: 10/16/19 01:06> Differential Diagnosis Differential diagnosis: Likely urinary tract infection, cystitis and other (supratherapeutic state of anticoagulant) Medical Records Attestation: I reviewed the patient's medical records. Lab Data Attestation: I reviewed the patient's lab results. Result diagrams: 10/15/19 12:39 10/15/19 12:39 Labs: Lab Results 10/15/19 10/15/19 10/15/19 Range/Units 12:01 12:39 12:39 WBC 7.6 (4.5-11.0) X10^3/uL RBC 3.96 L (4.0-5.2) X10^6/uL Hgb 12.8 (12.0-16.0) g/dL Hct 38.4 (36-46) % MCV 97.0 (80-100) fL MCH 32.4 (26-34) PG MCHC 33.4 (30-36) % RDW 15.5 H (11.6-14.8) % Plt Count 176 (150-400) X10^3/uL Neut % (Auto) 71.2 (50-75) % Lymph % (Auto) 20.1 L (25-40) % [place] % (Auto) 6.8 (3-14) % Eos % (Auto) 0.9 L (2-4) % Baso % (Auto) 1.0 (0-2) % Neut # (Auto) 5400 (4503-2534) /uL Lymph # (Auto) 1500 (5998-0376) /uL [place] # (Auto) 500 (0-900) /uL Eos # (Auto) 100 (0-450) /uL Baso # (Auto) 100 (0-100) /uL PT 12.1 (10.1-12.7) SECONDS INR 1.1 (0.9-1.3) APTT 35 (26.4-36.2) SECONDS Sodium (137-145) mmol/L Potassium (3.4-5.1) mmol/L Chloride (98-107) mmol/L Carbon Dioxide (22-32) mmol/L BUN (7-17) mg/dL Creatinine (0.52-1.04) mg/dL Estimated GFR (>60) mL/min BUN/Creatinine Ratio (6-22) Glucose (80-110) mg/dL Calcium (8.4-10.2) mg/dL Urine RBC 30-100/hpf H (0-5/HPF) Urine WBC 30-100/hpf H (0-5/HPF) Ur Squamous Epith Cells 0-1 /hpf (0-5/HPF) Urine Bacteria Many (>30) H (None) Ur Culture Indicated? Specimen cultured 10/15/19 Range/Units 12:39 WBC (4.5-11.0) X10^3/uL RBC (4.0-5.2) X10^6/uL Hgb (12.0-16.0) g/dL Hct (36-46) % MCV (80-100) fL MCH (26-34) PG MCHC (30-36) % RDW (11.6-14.8) % Plt Count (150-400) X10^3/uL Neut % (Auto) (50-75) % Lymph % (Auto) (25-40) % [place] % (Auto) (3-14) % Eos % (Auto) (2-4) % Baso % (Auto) (0-2) % Neut # (Auto) (9091-7377) /uL Lymph # (Auto) (8776-9015) /uL [place] # (Auto) (0-900) /uL Eos # (Auto) (0-450) /uL Baso # (Auto) (0-100) /uL PT (10.1-12.7) SECONDS INR (0.9-1.3) APTT (26.4-36.2) SECONDS Sodium 140 (137-145) mmol/L Potassium 4.0 (3.4-5.1) mmol/L Chloride 104 (98-107) mmol/L Carbon Dioxide 28 (22-32) mmol/L BUN 24 H (7-17) mg/dL Creatinine 1.23 H (0.52-1.04) mg/dL Estimated GFR 43.3 L (>60) mL/min BUN/Creatinine Ratio 19.5 (6-22) Glucose 94 (80-110) mg/dL Calcium 9.6 (8.4-10.2) mg/dL Urine RBC (0-5/HPF) Urine WBC (0-5/HPF) Ur Squamous Epith Cells (0-5/HPF) Urine Bacteria (None) Ur Culture Indicated? Urine Dip Bedside Urine Glucose Negative Bedside Urine Bilirubin - Negative Bedside Urine Ketone +/- 5 Urine Specific [place] 1.010 Bedside Urine Occult Blood +++ Bedside Urine pH 8.0 Bedside Urine Protein +++ 300 Bedside Urine Urobilinogen +/- 1mg Bedside Urine Nitrite - Negative Bedside Urine Leukocytes +++ 500 Esterase MDM Narrative Medical decision making narrative: This is a 69 year old female who presents to ED with urinary burning discomfort and bladder pressure and hematuria who is currently taking Xarelto daily for history of CVA and AFib. UA test is positive for infection with +++ urine leukoesterase, +++ occult blood and protein with negative nitrite. Urine microscopic test shows 30-100 urine RBC and WBC and many bacteria and culture is pending. No leukocytosis and normal coag and platelets. Increased Cr of 1.23 with BUN of 24 and decreased eGFR of 43.3. The patient's previous creatinine level range from 1.07 to 1.30 with eGFR from 40.9- 50.8 during last two years. Given the patients urinary symptoms and large amount of leukoesterase, urine WBC and RBC with many bacteria will treat patient with antibiotic medication for cystitis. However, hematuria could be resulted from supra therapeutic state of Xarelto. Since the patient has history of penicillin allergies and taking Digoxin currently it was decided to treat with Macrobid bid dose for 5 day course and avoiding Keflex and Bactrim DS. Patient advised to follow-up with primary care physician next couple of days and discussed strict return precau tion discussed. Patient verbalized understanding and agreement with treatment. <Ambrocio Lund MD - Last Filed: 10/21/19 03:41> Lab Data Labs: Lab Results 10/15/19 10/15/19 10/15/19 Range/Units 12:01 12:39 12:39 WBC 7.6 (4.5-11.0) X10^3/uL RBC 3.96 L (4.0-5.2) X10^6/uL Hgb 12.8 (12.0-16.0) g/dL Hct 38.4 (36-46) % MCV 97.0 (80-100) fL MCH 32.4 (26-34) PG MCHC 33.4 (30-36) % RDW 15.5 H (11.6-14.8) % Plt Count 176 (150-400) X10^3/uL Neut % (Auto) 71.2 (50-75) % Lymph % (Auto) 20.1 L (25-40) % [place] % (Auto) 6.8 (3-14) % Eos % (Auto) 0.9 L (2-4) % Baso % (Auto) 1.0 (0-2) % Neut # (Auto) 5400 (6052-7482) /uL Lymph # (Auto) 1500 (8346-8072) /uL [place] # (Auto) 500 (0-900) /uL Eos # (Auto) 100 (0-450) /uL Baso # (Auto) 100 (0-100) /uL PT 12.1 (10.1-12.7) SECONDS INR 1.1 (0.9-1.3) APTT 35 (26.4-36.2) SECONDS Sodium (137-145) mmol/L Potassium (3.4-5.1) mmol/L Chloride (98-107) mmol/L Carbon Dioxide (22-32) mmol/L BUN (7-17) mg/dL Creatinine (0.52-1.04) mg/dL Estimated GFR (>60) mL/min BUN/Creatinine Ratio (6-22) Glucose (80-110) mg/dL Calcium (8.4-10.2) mg/dL Urine RBC 30-100/hpf H (0-5/HPF) Urine WBC 30-100/hpf H (0-5/HPF) Ur Squamous Epith Cells 0-1 /hpf (0-5/HPF) Urine Bacteria Many (>30) H (None) Ur Culture Indicated? Specimen cultured 10/15/19 Range/Units 12:39 WBC (4.5-11.0) X10^3/uL RBC (4.0-5.2) X10^6/uL Hgb (12.0-16.0) g/dL Hct (36-46) % MCV (80-100) fL MCH (26-34) PG MCHC (30-36) % RDW (11.6-14.8) % Plt Count (150-400) X10^3/uL Neut % (Auto) (50-75) % Lymph % (Auto) (25-40) % [place] % (Auto) (3-14) % Eos % (Auto) (2-4) % Baso % (Auto) (0-2) % Neut # (Auto) (9997-9568) /uL Lymph # (Auto) (8646-0863) /uL [place] # (Auto) (0-900) /uL Eos # (Auto) (0-450) /uL Baso # (Auto) (0-100) /uL PT (10.1-12.7) SECONDS INR (0.9-1.3) APTT (26.4-36.2) SECONDS Sodium 140 (137-145) mmol/L Potassium 4.0 (3.4-5.1) mmol/L Chloride 104 (98-107) mmol/L Carbon Dioxide 28 (22-32) mmol/L BUN 24 H (7-17) mg/dL Creatinine 1.23 H (0.52-1.04) mg/dL Estimated GFR 43.3 L (>60) mL/min BUN/Creatinine Ratio 19.5 (6-22) Glucose 94 (80-110) mg/dL Calcium 9.6 (8.4-10.2) mg/dL Urine RBC (0-5/HPF) Urine WBC (0-5/HPF) Ur Squamous Epith Cells (0-5/HPF) Urine Bacteria (None) Ur Culture Indicated? Urine Dip Bedside Urine Glucose Negative Bedside Urine Bilirubin - Negative Bedside Urine Ketone +/- 5 Urine Specific [place] 1.010 Bedside Urine Occult Blood +++ Bedside Urine pH 8.0 Bedside Urine Protein +++ 300 Bedside Urine Urobilinogen +/- 1mg Bedside Urine Nitrite - Negative Bedside Urine Leukocytes +++ 500 Esterase Discharge Plan Departure Patient Disposition: Home Clinical Impression: Cystitis Hematuria Qualifiers: Hematuria type: gross Qualified Code(s): R31.0 - Gross hematuria Discharge Date/Time: 10/15/19 14:38 Instructions: DI for Acute Cystitis, DI for Hematuria Activity Restrictions/Additional Instructions: You have been diagnosed with [cystitis and hematuria currently on Xarelto for AFib and stroke. Urine culture is pending. Your kidney function is slightly decreased. Hematuria could be from infection or also from Xarelto. You will receive a phone call from us if changes in antibiotic medication is required.]. What to do: *Take your medications as directed. The Macrobid has been transmitted to [facility] in [place]. Please take it twice a day for next 5 days. *Follow up with your primary care provider in 2-3 days, call for an appointment. Let them know you were seen in the ED and that we asked you to be seen in follow up. *Return to ED if you have any new, worsening, or concerning symptoms, such as [c hest pain, breathing difficulty, unable to tolerate fluids, fever, flank pain, worsening hematuria or any acute concerns]. Prescriptions: No Action metoprolol tartrate 100 mg Tablet 100 mg PO TID RF: 0 divalproex 500 mg Tablet,Delayed Release (Dr/Ec) 500 mg PO TID RF: 0 vitamin B complex Tablet 1 tab PO DAILY RF: 0 folic acid 1 mg Tablet 1 mg PO DAILY RF: 0 digoxin 125 mcg Tablet 0.125 mg PO DAILY RF: 0 furosemide 20 mg Tablet 20 mg PO PRN PRN (Reason: Edema) RF: 0 sertraline 50 mg Tablet 50 mg PO DAILY RF: 0 diltiazem HCl 240 mg Tablet Extended Release 24 Hr 240 mg PO BID RF: 0 rosuvastatin [Crestor] 40 mg Tablet 40 mg PO DAILY RF: 0 cholecalciferol (vitamin D3) [Vitamin D3] 5,000 unit Tablet 5,000 unit PO DAILY RF: 0 niacin 1,000 mg Tablet Extended Release 1,000 mg PO BID RF: 0 Xarelto 20 mg Tablet 20 mg PO DAILY RF: 0 potassium chloride 10 mEq Tablet Extended Release 10 meq PO PRN PRN (Reason: Electrolyte Replenishment) RF: 0 loratadine [Claritin] 10 mg Tablet 10 mg PO DAILY RF: 0 Referrals: Sydni Thao MD [Primary Care Provider] - <Ambrocio Lund MD - Last Filed: 10/21/19 03:41> Cosign ED Attending Cosignature Attestation: I was immediately available in the department for consultation. This documentation has been reviewed and I agree with assessment and plan. Supervised by Ambrocio Lund MD
[2019-10-15] MEDS: NITROFURANTOIN ER 100 MG CAPSULE PO (14:05)
== END 2019-10-15 14:38 | disposition home or self-care (01) ==
PROVIDERS: Emergency Medicine; Emergency Provider Nurse Practitioner Family; PCP Internal Medicine
DX: N30.91 Cystitis, unspecified with hematuria (principal)
CPT/HCPCS: 36415; 80048; 81003; 81015; 85025; 85610; 85730; 87086; 99283

== ENCOUNTER 2020-06-24 19:56 | Emergency (ER) | payer OTHER, SELFPAY ==
[2019-05-31 08:30] VITALS: BMI 29.2
[2020-06-24] VITALS (8 sets, daily range): BP systolic 148–163; BP diastolic 72–83; PULSE 63–78; RESP 13–20; TEMP 36.8; O2SAT 97–99
--- NOTE | 2020-06-24 20:10 | DI.RAD.S_ITS ---
PROCEDURE: XR CHEST 1V INDICATIONS: chest pain TECHNIQUE: One view of the chest was acquired. COMPARISON: [facility], CT, CT CHEST WO CON, 05/31/2019, 4:38. [facility], CR, XR CHEST 1V, 05/31/2019, 4:01. FINDINGS: Surgical changes and devices: None. Lungs and pleura: Mild chronic appearing reticulonodular markings are seen in both lungs. No acute airspace opacity is seen. No pleural effusions or pneumothorax. Mediastinum: Mediastinal contours appear normal. Heart size is mildly enlarged and stable. Mild aortic atherosclerotic calcifications. Bones and chest wall: No suspicious bony lesions. Overlying soft tissues appear unremarkable. Degenerative changes are seen in the included spine. IMPRESSION: No acute cardiopulmonary abnormality. Dictated by: Panfilo Rowan M.D. on 06/24/2020 at 20:32 Approved by: Panfilo Rowan M.D. on 06/24/2020 at 20:34
[2020-06-24 20:24] LABS: Add Manual Diff / Slide Review NO; Basophils Absolute Auto 100 /uL (0-100); Basophils Percent Auto 0.9 % (0-2); Eosinophils Absolute Auto 200 /uL (0-450); Eosinophils Percent Auto 1.8 % (2-4); Hematocrit 42.8 % (36-46); Lymphocytes Absolute Auto 3500 /uL (1100-4500); Lymphocytes Percent Auto 34.9 % (25-40); Mean Corpuscular HGB Conc 32.8 % (30-36); Mean Corpuscular Hemoglobin 31.3 PG (26-34); Mean Corpuscular Volume 95.4 fL (80-100); Monocytes Absolute Auto 1000 /uL (0-900); Monocytes Percent Auto 10.5 % (3-14); Neutrophils Absolute Auto 5200 /uL (1500-7000); Neutrophils Percent Auto 51.9 % (50-75); Platelet Count 227 X10^3/uL (150-400); Red Blood Cell Count 4.48 X10^6/uL (4.0-5.2); Red Cell Distribution Width 14.4 % (11.6-14.8)
[2020-06-24 20:26] LABS: Prothrombin Time 22.5 SECONDS (10.1-12.7)
[2020-06-24 20:28] LABS: PTT Partial Thromboplastin Tim 54 SECONDS (26.4-36.2)
[2020-06-24 20:30] LABS: Alanine Aminotransferase 15 IU/L (<35); Albumin 4.5 g/dL (3.5-5.0); Albumin Globulin Ratio 1.1 (1.0-2.8); Alkaline Phosphatase 65 U/L (38-126); Aspartate Aminotransferase 28 IU/L (14-36); BUN Creatinine Ratio 31.4 (6-22); Bilirubin Total 0.3 mg/dL (0.2-1.3); Blood Urea Nitrogen 33 mg/dL (7-17); Calcium 9.8 mg/dL (8.4-10.2); Carbon Dioxide 29 mmol/L (22-32); Chloride 104 mmol/L (98-107); Creatine Kinase 31 U/L (30-135); Estimated Glomerular Filt Rate 51.8 mL/min (>60); Globulin 4.2 g/dL (1.7-4.1); Glucose 99 mg/dL (80-110); HEMOLYSIS 21 (0-50); Lipase 54 U/L (23-300); Sodium 142 mmol/L (137-145); Total Protein 8.7 g/dL (6.3-8.2)
--- NOTE | 2020-06-24 20:41 | ED.ARRPALP ---
HPI - Arrhythmia/Palpitations General Chief Complaint: Arrhythmia/Palpitations Stated Complaint: dizzy, heart is racing Time Seen by Provider: 06/24/20 20:09 Source: patient Mode of arrival: Wheelchair Limitations: no limitations History of Present Illness HPI narrative: Patient is a 70-year-old female who has a history of atrial fibrillation on Coumadin and digoxin with history of CVA and left-sided hemiparesis presents with dizziness started suddenly today. She also thought she felt her heart beating fast. Her rate now is in the 60s. She states dizziness significantly worse with movement he has mild nausea no vomiting no worsening weakness she denies any chest pain or palpitations. No shortness of breath. MD complaint: rapid heart beat and irregular heart beat Related Data Home Medications Medication Instructions Recorded Confirmed Xarelto 20 mg PO DAILY 12/16/17 05/31/19 cholecalciferol (vitamin D3) 5,000 unit PO DAILY 12/16/17 05/31/19 [Vitamin D3] digoxin 0.125 mg PO DAILY 12/16/17 05/31/19 diltiazem HCl 240 mg PO BID 12/16/17 05/31/19 divalproex 500 mg PO TID 12/16/17 05/31/19 folic acid 1 mg PO DAILY 12/16/17 05/31/19 furosemide 20 mg PO PRN PRN 12/16/17 05/31/19 metoprolol tartrate 100 mg PO TID 12/16/17 05/31/19 niacin 1,000 mg PO BID 12/16/17 05/31/19 potassium chloride 10 meq PO PRN PRN 12/16/17 05/31/19 rosuvastatin [Crestor] 40 mg PO DAILY 12/16/17 05/31/19 sertraline 50 mg PO DAILY 12/16/17 05/31/19 vitamin B complex 1 tab PO DAILY 12/16/17 05/31/19 loratadine [Claritin] 10 mg PO DAILY 05/31/19 05/31/19 Previous Rx's Medication Instructions Recorded meclizine 25 mg PO TID PRN #10 tab 06/24/20 ondansetron 4 mg PO Q8H PRN #10 tab 06/24/20 Allergies Allergy/AdvReac Type Severity Reaction Status Date / Time Penicillins Allergy Rash Verified 09/02/19 08:48 Review of Systems Review of Systems ROS Unobtainable: All systems reviewed & are unremarkable except as noted in HPI and below Constitutional Constitutional: Denies chills, Denies fever(s), Denies frequent falls, Reports headache(s), Denies lethargy and Denies weakness Eyes Eyes: Denies change in vision, Denies eye discharge, Denies irritation and Denies loss of vision ENT Ears, Nose, Mouth, and Throat: Reports dizziness and Reports headache(s) Cardiovascular Cardiovascular: Reports as per HPI, Denies syncope, Denies dyspnea and Denies dyspnea on exertion Respiratory Respiratory: Denies cough, Denies dyspnea, Denies dyspnea on exertion and Denies wheezing Gastrointestinal Gastrointestinal: Denies abdominal pain, Denies change in bowel habits, Denies diarrhea, Denies nausea and Denies vomiting Integumentary/Breasts Skin/Breast: Denies pruritus, Denies erythema, Denies rash and Denies wounds Neurologic Neurologic: Reports dizziness, Denies syncope, Denies frequent falls, Reports headache(s), Denies loss of vision and Denies weakness Allergic/Immunologic Allergic/Immunologic: Denies wheezing Patient History Medical History (Updated 06/24/20 @ 23:12 by Patrizia Lloyd RN) Atrial fibrillation Congestive heart failure CVA (cerebral vascular accident) History of CVA with residual deficit HLD (hyperlipidemia) Surgical History Hx of cholecystectomy Social History household members: family Smoking Status: Former smoker alcohol intake: current Smoking Status: Former smoker alcohol intake frequency: holidays/special occasions only Substance Use Type: does not use Exam Initial Vital Signs Initial Vital Signs: Vital Signs Temperature 98.2 F 06/24/20 20:00 Pulse Rate 68 06/24/20 20:00 Respiratory Rate 20 06/24/20 20:00 Blood Pressure 148/80 H 06/24/20 20:00 Pulse Oximetry 98 06/24/20 20:00 GENERAL: Alert pleasant 70-year-old female and in no acute distress. HEENT: Head atraumatic,EOMI, pupils reactive, face symmetric no nystagmus CARDIOVASCULAR: Regular rate and rhythm without murmurs, rubs or gallops. RESPIRATORY: Breath sounds equal bilaterally, no wheezes rales or rhonchi. ABDOMEN: Soft, nontender. Normoactive bowel sounds all 4 quadrants. No guarding or rebound. EXTREMITIES: Normal range of motion, no clubbing or edema. Neurovascularly intact NEUROLOGICAL: Alert and oriented x4. Left-sided hemiparesis at baseline no new deficits face is symmetric SKIN: Warm, dry, no laceration, no petechiae, no rashes or lesions. Course Orders Ordered: ED Orders 06/24/20 20:05 Complete Blood Count AUTO DIFF Stat Comprehensive Metabolic Panel Stat Lipase Stat Partial Thromboplastin Time Stat Prothrombin Time INR Stat Troponin & CK Cardiac Panel Stat 06/24/20 20:10 XR chest 1V Stat 06/24/20 20:47 CT head/brain wo con Stat 06/24/20 20:50 Digoxin Stat 06/24/20 22:05 Troponin I Stat Discontinued Medications Meclizine HCl (Meclizine Hcl 12.5 Mg Tablet) 25 mg PO NOW ONE Stop: 06/24/20 20:48 Last Admin: 06/24/20 20:52 Dose: 25 mg Documented by: TRENT Ondansetron HCl (Ondansetron 4 Mg/2 Ml Inj) 4 mg IV NOW ONE Stop: 06/24/20 20:48 Last Admin: 06/24/20 20:53 Dose: 4 mg Documented by: TRENT Vital Signs Vital signs: Vital Signs - 8 hr 06/24/20 20:00 06/24/20 20:04 06/24/20 20:30 Temperature 98.2 F Pulse Rate 68 78 65 Respiratory Rate 20 18 19 Blood Pressure 148/80 H 148/83 H 163/72 H Pulse Oximetry 98 99 06/24/20 21:07 06/24/20 21:30 06/24/20 22:00 Temperature Pulse Rate 63 67 69 Respiratory Rate 13 16 Blood Pressure Pulse Oximetry 97 97 98 06/24/20 22:30 06/24/20 23:00 Temperature Pulse Rate 70 68 Respiratory Rate 17 15 Blood Pressure 148/72 H Pulse Oximetry 97 97 MDM - Arrhythmia/Palpitations Lab Data Attestation: I reviewed the patient's lab results. Result diagrams: 06/24/20 20:05 06/24/20 20:05 Labs: Lab Results 06/24/20 06/24/20 06/24/20 Range/Units 20:05 20:05 20:05 WBC 10.0 (4.5-11.0) X10^3/uL RBC 4.48 (4.0-5.2) X10^6/uL Hgb 14.0 (12.0-16.0) g/dL Hct 42.8 (36-46) % MCV 95.4 (80-100) fL MCH 31.3 (26-34) PG MCHC 32.8 (30-36) % RDW 14.4 (11.6-14.8) % Plt Count 227 (150-400) X10^3/uL Neut % (Auto) 51.9 (50-75) % Lymph % (Auto) 34.9 (25-40) % [place] % (Auto) 10.5 (3-14) % Eos % (Auto) 1.8 L (2-4) % Baso % (Auto) 0.9 (0-2) % Neut # (Auto) 5200 (4386-6861) /uL Lymph # (Auto) 3500 (2311-4717) /uL [place] # (Auto) 1000 H (0-900) /uL Eos # (Auto) 200 (0-450) /uL Baso # (Auto) 100 (0-100) /uL PT 22.5 H (10.1-12.7) SECONDS INR 2.0 H (0.9-1.3) APTT 54 H D (26.4-36.2) SECONDS Sodium 142 (137-145) mmol/L Potassium 4.0 (3.4-5.1) mmol/L Chloride 104 (98-107) mmol/L Carbon Dioxide 29 (22-32) mmol/L BUN 33 H (7-17) mg/dL Creatinine 1.05 H (0.52-1.04) mg/dL Estimated GFR 51.8 L (>60) mL/min BUN/Creatinine Ratio 31.4 H (6-22) Glucose 99 (80-110) mg/dL Calcium 9.8 (8.4-10.2) mg/dL Total Bilirubin 0.3 (0.2-1.3) mg/dL AST 28 (14-36) IU/L ALT 15 (<35) IU/L Alkaline Phosphatase 65 (38-126) U/L Total Creatine Kinase 31 (30-135) U/L CK-MB (CK-2) TNP CK-MB (CK-2) Rel Index TNP Troponin I 0.044 H (0.01-0.034) ng/mL Total Protein 8.7 H (6.3-8.2) g/dL Albumin 4.5 (3.5-5.0) g/dL Globulin 4.2 H (1.7-4.1) g/dL Albumin/Globulin Ratio 1.1 (1.0-2.8) Lipase 54 (23-300) U/L Digoxin (0.8-2.0) ng/mL 06/24/20 06/24/20 Range/Units 20:50 22:05 WBC (4.5-11.0) X10^3/uL RBC (4.0-5.2) X10^6/uL Hgb (12.0-16.0) g/dL Hct (36-46) % MCV (80-100) fL MCH (26-34) PG MCHC (30-36) % RDW (11.6-14.8) % Plt Count (150-400) X10^3/uL Neut % (Auto) (50-75) % Lymph % (Auto) (25-40) % [place] % (Auto) (3-14) % Eos % (Auto) (2-4) % Baso % (Auto) (0-2) % Neut # (Auto) (3544-8182) /uL Lymph # (Auto) (5950-4765) /uL [place] # (Auto) (0-900) /uL Eos # (Auto) (0-450) /uL Baso # (Auto) (0-100) /uL PT (10.1-12.7) SECONDS INR (0.9-1.3) APTT (26.4-36.2) SECONDS Sodium (137-145) mmol/L Potassium (3.4-5.1) mmol/L Chloride (98-107) mmol/L Carbon Dioxide (22-32) mmol/L BUN (7-17) mg/dL Creatinine (0.52-1.04) mg/dL Estimated GFR (>60) mL/min BUN/Creatinine Ratio (6-22) Glucose (80-110) mg/dL Calcium (8.4-10.2) mg/dL Total Bilirubin (0.2-1.3) mg/dL AST (14-36) IU/L ALT (<35) IU/L Alkaline Phosphatase (38-126) U/L Total Creatine Kinase (30-135) U/L CK-MB (CK-2) CK-MB (CK-2) Rel Index Troponin I 0.043 H (0.01-0.034) ng/mL Total Protein (6.3-8.2) g/dL Albumin (3.5-5.0) g/dL Globulin (1.7-4.1) g/dL Albumin/Globulin Ratio (1.0-2.8) Lipase (23-300) U/L Digoxin 1.2 (0.8-2.0) ng/mL Imaging Data Chest x-ray: Radiologist's Impresson: PROCEDURE: XR CHEST 1V INDICATIONS: chest pain TECHNIQUE: One view of the chest was acquired. COMPARISON: [facility], CT, CT CHEST WO CON, 05/31/2019, 4:38. [facility], CR, XR CHEST 1V, 05/31/2019, 4:01. FINDINGS: Surgical changes and devices: None. Lungs and pleura: Mild chronic appearing reticulonodular markings are seen in both lungs. No acute airspace opacity is seen. No pleural effusions or pneumothorax. Mediastinum: Mediastinal contours appear normal. Heart size is mildly enlarged and stable. Mild aortic atherosclerotic calcifications. Bones and chest wall: No suspicious bony lesions. Overlying soft tissues appear unremarkable. Degenerative changes are seen in the included spine. IMPRESSION: No acute cardiopulmonary abnormality. Dictated by: Panfilo Rowan M.D. on 06/24/2020 at 20:32 CT scan - head: Radiologist's Impresson: PROCEDURE: CT HEAD/BRAIN WO CON INDICATIONS: dizzy on coumadin hx of cva TECHNIQUE: Noncontrast 4.5 mm thick angled axial sections acquired from the foramen magnum to the vertex, with coronal and sagittal reformats. For radiation dose reduction, the following was used: automated exposure control, adjustment of mA and/or kV according to patient size. COMPARISON: None. FINDINGS: Image quality: Excellent. CSF spaces: Basal cisterns are patent. No extra-axial fluid collections. There is ex vacuo dilatation of the right lateral ventricle. The remaining ventricles are normal in size. Brain: No acute intracranial hemorrhage or mass effect. Large chronic right MCA territory infarct is seen with associated volume loss and ex vacuo dilatation of the right lateral ventricle. Wallerian degeneration is seen in the right cerebral peduncle. There is mild cerebral volume loss for age, with resultant ventricular and sulcal prominence. There are mild periventricular and deep white matter chronic small vessel ischemic changes. There is intracranial internal carotid artery atherosclerosis. Skull and face: Calvarium and visualized facial bones appear intact, without suspicious lesions. Sinuses: Visualized sinuses and mastoids are clear. IMPRESSION: No acute intracranial abnormality. Chronic large infarct in the right MCA territory with ex vacuo dilatation of the right lateral ventricle. Dictated by: Panfilo Rowan M.D. on 06/24/2020 at 21:23 ECG Data Attestation: I personally reviewed and interpreted this ECG as follows: Prior ECG tracings: available for review Interpretation: EKG 1. Atrial fibrillation rate 64 with deep T-wave inversions noted in V3 through V6 no ST elevations previous EKG does show AFib with RVR and some T-wave inversions V4 through the 6 not previously seen in V3 EKG 2. Atrial fibrillation rate 75 persistent T wave changes no ST elevations MDM Narrative Medical decision making narrative: Patient presenting with palpitations and dizziness. She is overall feeling much better after meclizine she is able to sit up. She has no chest pain. Patient does have significant T-wave inversions on her EKG the new lead is the 3 which was not there and 2020 however EKG at that time she was in AFib with RVR. She has 2 troponins which remain indeterminate and unchanged. Symptoms are consistent with vertigo. No new neurologic symptoms Discharge Plan Departure Patient Disposition: Home Clinical Impression: Vertigo, Hyperlipidemia Instructions: DI for Vertigo Activity Restrictions/Additional Instructions: *You have been diagnosed with vertigo *What to do: At this time blood work and CT are reassuring. *Continue to take medications as directed--> [facility] Meclizine 25 mg every 8 hours only if needed for dizziness Zofran 4 mg every 8 hours if needed for nausea or vomiting *Follow up with your primary care provider in 2-3 days *Return to ER if you should have worsening dizziness or any new, worsening or concerning symptoms Prescriptions: New meclizine 25 mg tablet 25 mg PO TID PRN (Reason: dizziness) Qty: 10 RF: 0 ondansetron 4 mg tablet,disintegrating 4 mg PO Q8H PRN (Reason: nausea and vomiting) Qty: 10 RF: 0 No Action metoprolol tartrate 100 mg Tablet 100 mg PO TID RF: 0 divalproex 500 mg Tablet,Delayed Release (Dr/Ec) 500 mg PO TID RF: 0 vitamin B complex Tablet 1 tab PO DAILY RF: 0 folic acid 1 mg Tablet 1 mg PO DAILY RF: 0 digoxin 125 mcg Tablet 0.125 mg PO DAILY RF: 0 furosemide 20 mg Tablet 20 mg PO PRN PRN (Reason: Edema) RF: 0 sertraline 50 mg Tablet 50 mg PO DAILY RF: 0 diltiazem HCl 240 mg Tablet Extended Release 24 Hr 240 mg PO BID RF: 0 rosuvastatin [Crestor] 40 mg Tablet 40 mg PO DAILY RF: 0 cholecalciferol (vitamin D3) [Vitamin D3] 5,000 unit Tablet 5,000 unit PO DAILY RF: 0 niacin 1,000 mg Tablet Extended Release 1,000 mg PO BID RF: 0 Xarelto 20 mg Tablet 20 mg PO DAILY RF: 0 potassium chloride 10 mEq Tablet Extended Release 10 meq PO PRN PRN (Reason: Electrolyte Replenishment) RF: 0 loratadine [Claritin] 10 mg Tablet 10 mg PO DAILY RF: 0 Referrals: Sydni Thao MD [Primary Care Provider] -
[2020-06-24 20:42] LABS: Troponin I 0.044 ng/mL (0.01-0.034)
--- NOTE | 2020-06-24 20:47 | DI.CT.S_ITS ---
PROCEDURE: CT HEAD/BRAIN WO CON INDICATIONS: dizzy on coumadin hx of cva TECHNIQUE: Noncontrast 4.5 mm thick angled axial sections acquired from the foramen magnum to the vertex, with coronal and sagittal reformats. For radiation dose reduction, the following was used: automated exposure control, adjustment of mA and/or kV according to patient size. COMPARISON: None. FINDINGS: Image quality: Excellent. CSF spaces: Basal cisterns are patent. No extra-axial fluid collections. There is ex vacuo dilatation of the right lateral ventricle. The remaining ventricles are normal in size. Brain: No acute intracranial hemorrhage or mass effect. Large chronic right MCA territory infarct is seen with associated volume loss and ex vacuo dilatation of the right lateral ventricle. Wallerian degeneration is seen in the right cerebral peduncle. There is mild cerebral volume loss for age, with resultant ventricular and sulcal prominence. There are mild periventricular and deep white matter chronic small vessel ischemic changes. There is intracranial internal carotid artery atherosclerosis. Skull and face: Calvarium and visualized facial bones appear intact, without suspicious lesions. Sinuses: Visualized sinuses and mastoids are clear. IMPRESSION: No acute intracranial abnormality. Chronic large infarct in the right MCA territory with ex vacuo dilatation of the right lateral ventricle. Dictated by: Panfilo Rowan M.D. on 06/24/2020 at 21:23 Approved by: Panfilo Rowan M.D. on 06/24/2020 at 21:26
[2020-06-24] MEDS: MECLIZINE HCL 12.5 MG TABLET 25 MG PO (20:52)
[2020-06-24] MEDS: ONDANSETRON 4 MG/2 ML INJ IV (20:53)
[2020-06-24 21:40] LABS: Digoxin 1.2 ng/mL (0.8-2.0)
[2020-06-24 22:32] LABS: Troponin I 0.043 ng/mL (0.01-0.034)
== END 2020-06-24 23:12 | disposition home or self-care (01) ==
PROVIDERS: Emergency Provider Emergency Medicine; PCP Internal Medicine
DX: R42 Dizziness and giddiness (principal); E78.5 Hyperlipidemia, unspecified; R07.9 Chest pain, unspecified; R00.2 Palpitations
CPT/HCPCS: 36415; 70450; 71045; 80053; 80162; 82550; 83690; 84484; 85025; 85610; 85730; 93005; 96374; 99284; J2405

== ENCOUNTER 2020-12-12 18:08 | Emergency (ER) | payer OTHER, SELFPAY ==
[2019-05-31 08:30] VITALS: BMI 29.2
[2020-12-12 18:44] VITALS: BP 126/60; PULSE 85; RESP 18; TEMP 36.3; O2SAT 94; BMI 26.6
--- NOTE | 2020-12-12 19:28 | DI.CT.S_ITS ---
PROCEDURE: CT HEAD/BRAIN WO CON INDICATIONS: headache, pressure, dizzy, on xarelto TECHNIQUE: Noncontrast 4.5 mm thick angled axial sections acquired from the foramen magnum to the vertex, with coronal and sagittal reformats. For radiation dose reduction, the following was used: automated exposure control, adjustment of mA and/or kV according to patient size. COMPARISON: [facility], CT, CT HEAD/BRAIN WO CON, 06/24/2020, 20:56. FINDINGS: Image quality: Excellent. CSF spaces: Basal cisterns are patent. No extra-axial fluid collections. The right ventricle is mildly dilated secondary to ex vacuo dilation. Brain: Encephalomalacia in the right frontal parietal lobe consistent with old infarct. No intracranial bleeds or masses. There is moderate cerebral volume loss for age, with resultant ventricular and sulcal prominence. There are mild periventricular and deep white matter chronic small vessel ischemic changes. There is intracranial internal carotid artery atherosclerosis. Skull and face: Calvarium and visualized facial bones appear intact, without suspicious lesions. Sinuses: Visualized sinuses and mastoids are clear. IMPRESSION: 1. No acute intracranial abnormalities. 2. Large right MCA infarct. 3. Cerebral volume loss and chronic microvascular ischemic changes. Dictated by: Sue Schrader M.D. on 12/12/2020 at 19:52 Approved by: Sue Schrader M.D. on 12/12/2020 at 19:55
--- NOTE | 2020-12-12 19:43 | PC.NURSE ---
patient suffered what she thought was a ruptured ear drum. On Sunday night she suffered from pain in her left ear followed by bloody drainage. she has a 4/10 headache and ear pain on both sides of her ears. She has a left sided deficit from a previous stroke.
--- NOTE | 2020-12-12 19:46 | ED.EAR ---
HPI - Ear Problem General Chief complaint: Ear Stated complaint: SINUS PRESSURE LEFT EAR BLOOD Time Seen by Provider: 12/12/20 19:00 Source: patient and family Mode of arrival: Wheelchair Limitations: no limitations History of Present Illness HPI Narrative: 70-year-old female former smoker on Xarelto for AFib presents with a chief complaint of a few days of sinus congestion and bilateral ear pain. A day or 2 ago she developed increasing pain in both ears and then felt a pop and noted blood to be draining from her left ear. It has since stopped bleeding though she has developed some mild increase in her pressure. She does have some mild anterior headache but nothing significant. She denies any recent trauma. She denies any change in medications or diet. She denies stroke-like symptoms such as difficulty with vision or speech. She denies any focal findings such as numbness, tingling or weakness. Related Data Home Medications Medication Instructions Recorded Confirmed cholecalciferol (vitamin D3) 125 5,000 unit PO DAILY 12/16/17 05/31/19 mcg (5,000 unit) tablet (Vitamin D3) digoxin 125 mcg (0.125 mg) tablet 0.125 mg PO DAILY 12/16/17 05/31/19 diltiazem HCl 240 mg 240 mg PO BID 12/16/17 05/31/19 tablet,extended release 24 hr divalproex 500 mg tablet,delayed 500 mg PO TID 12/16/17 05/31/19 release folic acid 1 mg tablet 1 mg PO DAILY 12/16/17 05/31/19 furosemide 20 mg tablet 20 mg PO PRN PRN 12/16/17 05/31/19 metoprolol tartrate 100 mg tablet 100 mg PO TID 12/16/17 05/31/19 niacin 1,000 mg tablet,extended 1,000 mg PO BID 12/16/17 05/31/19 release potassium chloride 10 mEq 10 meq PO PRN PRN 12/16/17 05/31/19 tablet,extended release rivaroxaban 20 mg tablet (Xarelto) 20 mg PO DAILY 12/16/17 05/31/19 rosuvastatin 40 mg tablet (Crestor) 40 mg PO DAILY 12/16/17 05/31/19 sertraline 50 mg tablet 50 mg PO DAILY 12/16/17 05/31/19 vitamin B complex 1 tab PO DAILY 12/16/17 05/31/19 loratadine 10 mg tablet (Claritin) 10 mg PO DAILY 05/31/19 05/31/19 Previous Rx's Medication Instructions Recorded meclizine 25 mg tablet 25 mg PO TID PRN #10 tab 06/24/20 ondansetron 4 mg disintegrating 4 mg PO Q8H PRN #10 tab 06/24/20 tablet Allergies Allergy/AdvReac Type Severity Reaction Status Date / Time Penicillins Allergy Rash Verified 09/02/19 08:48 Review of Systems Review of Systems Narrative: GENERAL: Denies chills, fatigue, malaise, fever, sweats. HEENT: See HPI RESPIRATORY: Denies dyspnea, cough, wheezing, hemoptysis, sputum. CARDIOVASCULAR: Denies chest pain, palpitations, orthopnea, edema, GASTROINTESTINAL: Denies nausea, vomiting, abdominal pain, diarrhea, constipation, melena. : Denies dysuria, frequency, incontinence, hematuria, urinary retention. MUSCULOSKELETAL: denies weakness, joint pain, or bony pain SKIN: Denies rash, skin lesions, or other NEUROLOGIC: Denies weakness, headache, numbness, change in speech, confusion, seizures, incoordination. PSYCHIATRIC: No concerning psychosocial issues. 12 point review of systems is negative except for those stated above Patient History Medical History Atrial fibrillation Congestive heart failure CVA (cerebral vascular accident) History of CVA with residual deficit HLD (hyperlipidemia) Surgical History Hx of cholecystectomy Social History household members: family Smoking Status: Former smoker alcohol intake: current Smoking Status: Former smoker alcohol intake frequency: holidays/special occasions only Substance Use Type: does not use Exam Narrative Exam Narrative: GEN: AOx3 and in mild distress EYES: Pupils are equal, round, and reactive to light and accommodation. Extraoccular muscles are intact bilaterally. There is no subconjunctival hemorrhage or exudate. ENT: L TM with hemotympanum and dried blood in EAC. No obvious TM rupture however a single clear drop of fluid is noted on TM, raising the question of this being the point of rupture. CHEST: Lungs are clear to auscultation bilaterally and free of wheezes, rales, or rhonchi. Heart rate is regular rhythm, there are no murmurs, clicks, rubs, or gallops. There is no chest wall tenderness. ABD: Abdomen is soft and nontender. There is no guarding or rebound. Bowel sounds are normal in all 4 quadrants. There is no mass or organomegaly. EXT: Full painless ROM of all extremities with no loss of sensation or strength. SKIN: Warm, pink, and dry. No erythema or rash Initial Vital Signs Initial Vital Signs: Vital Signs Temperature 97.3 F L 12/12/20 18:44 Pulse Rate 85 12/12/20 18:44 Respiratory Rate 18 12/12/20 18:44 Blood Pressure 126/60 12/12/20 18:44 Pulse Oximetry 94 12/12/20 18:44 Course Orders Ordered: ED Orders 12/12/20 19:28 CT head/brain wo con Stat Consultations Consultation #1: Call to on-call ENT to discuss the case. No significant additional recommendations other than antihistamines and follow-up. Vital Signs Vital signs: Vital Signs - 8 hr 12/12/20 20:45 Pulse Rate 83 Respiratory Rate 16 Blood Pressure 134/60 Pulse Oximetry 97 Medical Decision Making Imaging Data CT scan - head: Radiologist's Impression: Regina Capellan??70??F??1950 ? Allergy/Adv: Penicillins Close Head CT (Signed) Americo Schrader - 12/12/[address] (Signed) Panfilo Rowan - 06/24/20 Chest X-Ray (Signed) Panfilo Rowan - 06/24/20 Telemetry Strips 05/31/[address] (Signed) Socrates Ramirez - 05/31/19 Chest X-Ray (Signed) Socrates Ramirez - 05/31/19 Echocardiogram Ultrasound (Signed) Rhea Garza - 05/31/19 Abdomen/Pelvis CT (Signed) Dania Peters - 12/16/17 Launch?[address] [address] [address] Scan Report Signed Patient: Regina Capellan MR#: [id number] : 1950 Acct:[id number] Age/Sex: 70 / F Date of Service: 12/12/20 Loc: ED Accession Number: [id number] ?? Procedure: CT head/brain wo con Ordering Provider: Jose Sandra D.O. PROCEDURE:? CT HEAD/BRAIN WO CON ? INDICATIONS:? headache, pressure, dizzy, on xarelto ? TECHNIQUE:? Noncontrast 4.5 mm thick angled axial sections acquired from the foramen magnum to the vertex, with coronal and sagittal reformats.? For radiation dose reduction, the following was used:? automated exposure control, adjustment of mA and/or kV according to patient size.? ? COMPARISON:? [facility], CT, CT HEAD/BRAIN WO CON, 06/24/2020, 20:56. ? FINDINGS:? Image quality:? Excellent.? ? CSF spaces:? Basal cisterns are patent.? No extra-axial fluid collections.? The right ventricle is mildly dilated secondary to ex vacuo dilation.? ? Brain:? Encephalomalacia in the right frontal parietal lobe consistent with old infarct.? No intracranial bleeds or masses.? There is moderate cerebral volume loss for age, with resultant ventricular and sulcal prominence.? There are mild periventricular and deep white matter chronic small vessel ischemic changes.? There is intracranial internal carotid artery atherosclerosis.? ? Skull and face:? Calvarium and visualized facial bones appear intact, without suspicious lesions.? ? Sinuses:? Visualized sinuses and mastoids are clear.? ? IMPRESSION:? ? 1. No acute intracranial abnormalities. ? 2. Large right MCA infarct. ? 3. Cerebral volume loss and chronic microvascular ischemic changes. ? ? ? Dictated by: Sue Schrader M.D. on 12/12/2020 at 19:52 ? ? Approved by: Sue Schrader M.D. on 12/12/2020 at 19:55 ? MDM Narrative Medical decision making narrative: Patient on anticoagulation developed spontaneous hemotympanum of left ear with subsequent rupture which has apparently resolved. She is largely asymptomatic. Head CT obtained and no intracranial abnormalities are noted Discharge Plan Departure Patient Disposition: Home Clinical Impression: Hemorrhage into middle ear Qualifiers: Laterality: left Qualified Code(s): H74.8X2 - Other specified disorders of left middle ear and mastoid Tympanic membrane perforation Qualifiers: Laterality: left Qualified Code(s): H72.92 - Unspecified perforation of tympanic membrane, left ear Instructions: Ruptured Eardrum Activity Restrictions/Additional Instructions: *You have been diagnosed with [spontaneous hemorrhage into middle ear, likely there was a small nontraumatic rupture of your tympanic membrane that has healed up. I have discussed the case with ear nose and throat and have no significant additions or suggestions for treatment *What to do: *Please continue to take your regular medications as directed. [ ] New medication prescriptions sent to your pharmacy: [ ] [ ] New medication written as a paper prescription [x ] No new medications given *Please follow up with your primary care provider in 2-3 days, call for an appointment. Let them know you were seen in the Emergency Department and that we ask that you be seen in follow up. We will electronically transmit a record of today's note if your PCP is in our system *If you do not have a primary care provider please contact the [facility] Resource line at [phone]. They will ask some questions about your medical history and help get you set up with a doctor in the community. *Return to Emergency Department if you should have any new, worsening or concerning symptoms, such as [fever greater than 101 F, shaking chills, worsening pain, persistent vomiting or other bothersome symptoms] Prescriptions: No Action metoprolol tartrate 100 mg Tablet 100 mg PO TID RF: 0 divalproex 500 mg Tablet,Delayed Release (Dr/Ec) 500 mg PO TID RF: 0 vitamin B complex Tablet 1 tab PO DAILY RF: 0 folic acid 1 mg Tablet 1 mg PO DAILY RF: 0 digoxin 125 mcg Tablet 0.125 mg PO DAILY RF: 0 furosemide 20 mg Tablet 20 mg PO PRN PRN (Reason: Edema) RF: 0 sertraline 50 mg Tablet 50 mg PO DAILY RF: 0 diltiazem HCl 240 mg Tablet Extended Release 24 Hr 240 mg PO BID RF: 0 rosuvastatin [Crestor] 40 mg Tablet 40 mg PO DAILY RF: 0 cholecalciferol (vitamin D3) [Vitamin D3] 5,000 unit Tablet 5,000 unit PO DAILY RF: 0 niacin 1,000 mg Tablet Extended Release 1,000 mg PO BID RF: 0 Xarelto 20 mg Tablet 20 mg PO DAILY RF: 0 potassium chloride 10 mEq Tablet Extended Release 10 meq PO PRN PRN (Reason: Electrolyte Replenishment) RF: 0 loratadine [Claritin] 10 mg Tablet 10 mg PO DAILY RF: 0 meclizine 25 mg tablet 25 mg PO TID PRN (Reason: dizziness) Qty: 10 RF: 0 ondansetron 4 mg tablet,disintegrating 4 mg PO Q8H PRN (Reason: nausea and vomiting) Qty: 10 RF: 0 Referrals: Sydni Thao MD [Primary Care Provider] -
[2020-12-12 20:45] VITALS: BP 134/60; PULSE 83; RESP 16; O2SAT 97
== END 2020-12-12 20:47 | disposition home or self-care (01) ==
PROVIDERS: Emergency Provider Emergency Medicine; PCP Internal Medicine
DX: H72.92 Unspecified perforation of tympanic membrane, left ear (principal); H92.22 Otorrhagia, left ear; Z79.01 Long term (current) use of anticoagulants
CPT/HCPCS: 70450; 99283; 99284

== ENCOUNTER 2020-12-21 11:03 | Inpatient (IN) | payer OTHER, SELFPAY ==
[2019-05-31 08:30] VITALS: BMI 29.2
[2020-12-21] VITALS (18 sets, daily range): BP systolic 98–167; BP diastolic 48–84; PULSE 56–188; RESP 8–25; TEMP 36.4–37.1; O2SAT 88–98; BMI 28.2; BMI 26.1
--- NOTE | 2020-12-21 11:26 | ED_ITS ---
HPI - SOB/Dyspnea General Chief Complaint: Arrhythmia/Palpitations Stated Complaint: shortness of breath/cough Time Seen by Provider: 12/21/20 11:24 History of Present Illness HPI Narrative: Patient is a 70-year-old female with history of atrial fibrillation on Xarelto, previous CVA with left-sided hemiparesis, congenital clotting disorder presenting today with increasing shortness of breath. She states that as gotten significantly worse over last day or so. Last night she had orthopnea and productive cough she says she woke up in a drenching sweat as well. She is unsure that she has had fever. She is in AFib with RVR she says she has been cardioverted numerous time she is not interested in that today. She has previously gotten amiodarone to help AFib with RVR. She was previously on digoxin but that was stopped by her etl consultant this summer. Denies any peripheral swelling. Related Data Home Medications Medication Instructions Recorded Confirmed cholecalciferol (vitamin D3) 125 5,000 unit PO DAILY 12/16/17 05/31/19 mcg (5,000 unit) tablet (Vitamin D3) diltiazem HCl 240 mg 240 mg PO BID 12/16/17 05/31/19 tablet,extended release 24 hr divalproex 500 mg tablet,delayed 500 mg PO TID 12/16/17 12/21/20 release folic acid 1 mg tablet 1 mg PO DAILY 12/16/17 05/31/19 furosemide 20 mg tablet 20 mg PO PRN PRN 12/16/17 05/31/19 metoprolol tartrate 100 mg tablet 100 mg PO TID 12/16/17 05/31/19 niacin 1,000 mg tablet,extended 1,000 mg PO BID 12/16/17 05/31/19 release potassium chloride 10 mEq 10 meq PO PRN PRN 12/16/17 05/31/19 tablet,extended release rivaroxaban 20 mg tablet (Xarelto) 20 mg PO DAILY 12/16/17 05/31/19 rosuvastatin 40 mg tablet (Crestor) 40 mg PO DAILY 12/16/17 05/31/19 sertraline 50 mg tablet 50 mg PO DAILY 12/16/17 05/31/19 vitamin B complex 1 tab PO DAILY 12/16/17 05/31/19 loratadine 10 mg tablet (Claritin) 10 mg PO DAILY 05/31/19 05/31/19 Previous Rx's Medication Instructions Recorded meclizine 25 mg tablet 25 mg PO TID PRN #10 tab 06/24/20 ondansetron 4 mg disintegrating 4 mg PO Q8H PRN #10 tab 06/24/20 tablet Allergies Allergy/AdvReac Type Severity Reaction Status Date / Time Penicillins Allergy Rash Verified 12/21/20 11:31 Review of Systems Review of Systems Narrative: GENERAL: Denies chills, fatigue, malaise, fever, travel HEENT: Denies sinus pain, ear pain, sore throat, difficulty swallowing, neck pain RESPIRATORY: See HPI CARDIOVASCULAR: see HPI GASTROINTESTINAL: Denies nausea, vomiting, abdominal pain, diarrhea, constipation, melena. : Denies dysuria, frequency, incontinence, hematuria, urinary retention, flank pain. MUSCULOSKELETAL: Denies weakness, joint pain, or bony pain SKIN: No rash, no erythema, no pruritus NEUROLOGIC: Denies weakness, dizziness, headache, numbness, change in speech, confusion PSYCHIATRIC: No concerning psychosocial issues. 12 point review of systems is negative except for those stated above and HPI Patient History Medical History Atrial fibrillation Congestive heart failure CVA (cerebral vascular accident) History of CVA with residual deficit HLD (hyperlipidemia) Surgical History Hx of cholecystectomy Social History household members: family Smoking Status: Former smoker alcohol intake: current Smoking Status: Former smoker alcohol intake frequency: holidays/special occasions only Substance Use Type: does not use Exam Initial Vital Signs Initial Vital Signs: Vital Signs Temperature 97.8 F 12/21/20 11:05 Pulse Rate 188 H 12/21/20 11:05 Respiratory Rate 25 H 12/21/20 11:05 Blood Pressure 167/72 H 12/21/20 11:05 Pulse Oximetry 96 12/21/20 11:05 GENERAL: Alert well-appearing 7-year-old femaleand in [no acute] distress. HEENT: Head atraumatic,EOMI, pupils reactive, face symmetric, [moist] mucous membranes CARDIOVASCULAR: Tachycardic irregularly irregular RESPIRATORY: No dyspnea, no wheezes rales or rhonchi, speaks in full sentences ABDOMEN: Soft, nontender. Normoactive bowel sounds all 4 quadrants. No guarding or rebound. EXTREMITIES: Normal range of motion, no clubbing or edema. Neurovascularly intact NEUROLOGICAL: Alert and oriented x4.Normal gait and speech. Left-sided weakness no new deficits SKIN: Warm, dry, no laceration, no petechiae, no rashes or lesions. Procedures Cardioversion Consent Signed: Yes Indication: Atrial fibrillation with RVR Stability: Stable Number of attempts (shocks): 2 Joules used: 150 and 200 Cardiac rhythm post-cardioversion: sinus with pac Procedural Sedation Consent signed: Yes Time out performed: Yes Indication: cardioversion ASA Class: I Mallampati Airway Classification: Class II Preparation: cardiac monitor technician applied, pulse oximeter, capnometry used, supplemental O2 applied, suction/airway equipment at bedside and IV secured IV Propofol dose (mg): 50 Intraservice time/total sedation time (min): 15 ED Sedation Level: Moderate (Concious) Complications: Respiratory Depression-Repositioning Required Interventions: Airway repositioned Course Orders Ordered: ED Orders 12/21/20 11:26 Complete Blood Count AUTO DIFF Stat Comprehensive Metabolic Panel Stat Lactate (Lactic Acid) Stat Magnesium Stat NT-proBNP (BNP-Adult 18+) Stat Procalcitonin Stat Troponin & CK Cardiac Panel Stat 12/21/20 11:38 Consult to Respiratory Therapy Evaluate & Treat XR chest 1V Stat 12/21/20 12:15 Blood Culture Stat Acetaminophen (Acetaminophen 325 Mg Tablet) 650 mg PO Q6HR PRN PRN Reason: Fever/Mild Pain (1-3) Amiodarone HCl (Amiodarone 200 Mg Tablet) 400 mg PO BIDWM CHRISTINE Bisacodyl (Bisacodyl 10 Mg Supp) 10 mg NE DAILY PRN PRN Reason: Constipation Divalproex Sodium (Divalproex Dr 250 Mg Tablet) 500 mg PO TID CHRISTINE Docusate Sodium (Docusate 100 Mg Capsule) 100 mg PO BID CHRISTINE Folic Acid (Folic Acid 1 Mg Tablet) 1 mg PO DAILY CHRISTINE Furosemide (Furosemide 40 Mg/4 Ml Vial) 40 mg IV Q12HR CHRISTINE Amiodarone HCl/Dextrose (Nexterone) 360 mg in 200 mls @ 33.333 mls/hr IV NOW ON E; Protocol Stop: 12/21/20 20:00 Last Admin: 12/21/20 15:34 Dose: Not Given Documented by: MAISHA Loratadine (Loratadine 10 Mg Tablet) 10 mg PO DAILY [facility] Meclizine HCl (Meclizine Hcl 12.5 Mg Tablet) 25 mg PO TID PRN PRN Reason: dizziness Metoprolol Tartrate (Metoprolol Ir 50 Mg Tablet) 100 mg PO BID [facility] Naloxone HCl (Naloxone 0.4 Mg/Ml Vial) 0.2 mg IV Q2MIN PRN PRN Reason: Opiate Reversal Niacin (Niacin 500 Mg Tab Er) 1,000 mg PO BID [facility] Non-Formulary Medication (Vitamin B Complex) 1 tab PO DAILY [facility] Ondansetron HCl (Ondansetron 4 Mg/2 Ml Inj) 4 mg IV Q8HR PRN PRN Reason: Nausea And Vomiting Ondansetron HCl (Ondansetron 4 Mg Odt) 4 mg PO Q8H PRN PRN Reason: nausea and vomiting Potassium Chloride (Potassium Chloride 10 Meq Tab) 10 meq PO PRN PRN PRN Reason: Electrolyte Replenishment Rivaroxaban (Rivaroxaban 10 Mg Tablet) 20 mg PO DAILY [facility] Sertraline HCl (Sertraline 50 Mg Tablet) 50 mg PO DAILY [facility] Vitamin D (Cholecalciferol (Vitamin D3) 5,000 Unit Tablet) 5,000 unit PO DAILY CHRISTINE Discontinued Medications Amiodarone HCl (Amiodarone 200 Mg Tablet) 400 mg PO NOW ONE Stop: 12/21/20 15:09 Last Admin: 12/21/20 15:43 Dose: 400 mg Documented by: MAISHA Atorvastatin Calcium (Atorvastatin 20 Mg Tablet) 80 mg PO DAILY CHRISTINE Diltiazem HCl (Diltiazem 5 Mg/Ml Sdv) 10 mg IV NOW ONE Stop: 12/21/20 11:38 Last Admin: 12/21/20 17:13 Dose: Not Given Documented by: ALEYDA Diltiazem HCl (Diltiazem Cd 240 Mg Cap) 240 mg PO BID CHRISTINE Furosemide (Furosemide 40 Mg/4 Ml Vial) 40 mg IV NOW ONE Stop: 12/21/20 12:46 Last Admin: 12/21/20 13:12 Dose: 40 mg Documented by: MAISHA Levofloxacin (Levaquin) 500 mg in 100 mls @ 100 mls/hr IV NOW ONE Stop: 12/21/20 13:45 Last Infusion: 12/21/20 16:36 Dose: 0 mls/hr Documented by: Admin: 12/21/20 13:12 Dose: 100 mls/hr Documented by: MAISHA Metoprolol Tartrate (Metoprolol Tartrate 5 Mg/5 Ml Inj) 5 mg IV NOW ONE Stop: 12/21/20 12:46 Last Admin: 12/21/20 13:12 Dose: 5 mg Documented by: MAISHA Metoprolol Tartrate (Metoprolol Tartrate 5 Mg/5 Ml Inj) 5 mg IV NOW ONE Stop: 12/21/20 13:27 Last Admin: 12/21/20 15:09 Dose: Not Given Documented by: MAISHA Propofol (Propofol 200 Mg/20 Ml Vial) 80 mg 1 mg/kg (80 mg) IV NOW ONE Stop: 12/21/20 14:02 Last Admin: 12/21/20 14:40 Dose: 50 mg Documented by: MAISHA Vital Signs Vital signs: Vital Signs - 8 hr 12/21/20 13:40 12/21/20 14:45 12/21/20 14:50 Temperature Pulse Rate 143 H 60 66 Respiratory Rate 18 8 L 16 Blood Pressure 114/84 104/48 L 110/64 Pulse Oximetry 98 94 94 12/21/20 14:55 12/21/20 15:00 12/21/20 15:03 Temperature 98.5 F Pulse Rate 60 56 L 58 L Respiratory Rate 20 19 14 Blood Pressure 103/59 L 110/56 L Pulse Oximetry 92 98 12/21/20 15:05 12/21/20 15:10 Temperature Pulse Rate 57 L 57 L Respiratory Rate 16 16 Blood Pressure 115/64 115/64 Pulse Oximetry 92 98 MDM - SOB/Dyspnea Lab Data Result diagrams: 12/21/20 11:26 12/21/20 11:26 Labs: Lab Results 12/21/20 12/21/20 12/21/20 Range/Units 11:26 11:26 11:26 WBC 14.1 H (4.5-11.0) X10^3/uL RBC 3.74 L (4.0-5.2) X10^6/uL Hgb 11.8 L (12.0-16.0) g/dL Hct 34.8 L (36-46) % MCV 93.2 (80-100) fL MCH 31.7 (26-34) PG MCHC 34.0 (30-36) % RDW 15.1 H (11.6-14.8) % Plt Count 351 (150-400) X10^3/uL Neut % (Auto) 77.3 H (50-75) % Lymph % (Auto) 11.7 L (25-40) % [place] % (Auto) 10.2 (3-14) % Eos % (Auto) 0.4 L (2-4) % Baso % (Auto) 0.4 (0-2) % Neut # (Auto) 84388 H (5899-5690) /uL Lymph # (Auto) 1600 (7708-6909) /uL [place] # (Auto) 1400 H (0-900) /uL Eos # (Auto) 100 (0-450) /uL Baso # (Auto) 100 (0-100) /uL Sodium 143 (137-145) mmol/L Potassium 3.7 (3.4-5.1) mmol/L Chloride 104 (98-107) mmol/L Carbon Dioxide 24 (22-32) mmol/L BUN 58 H (7-17) mg/dL Creatinine 1.78 H (0.52-1.04) mg/dL Estimated GFR 28.2 L (>60) mL/min BUN/Creatinine Ratio 32.6 H (6-22) Glucose 95 (80-110) mg/dL Lactate (0.7-2.1) mmol/L Calcium 9.8 (8.4-10.2) mg/dL Magnesium 2.5 H (1.6-2.3) mg/dL Total Bilirubin 0.9 (0.2-1.3) mg/dL AST 66 H (14-36) IU/L ALT 75 H (<35) IU/L Alkaline Phosphatase 142 H (38-126) U/L Total Creatine Kinase 51 (30-135) U/L CK-MB (CK-2) TNP CK-MB (CK-2) Rel Index TNP Troponin I 0.107 H (0.01-0.034) ng/mL NT-Pro-B Natriuret Pep 51774 H (<125) pg/mL Total Protein 8.8 H (6.3-8.2) g/dL Albumin 4.0 (3.5-5.0) g/dL Globulin 4.8 H (1.7-4.1) g/dL Albumin/Globulin Ratio 0.8 L (1.0-2.8) Procalcitonin 0.18 (<0.5) ng/mL 12/21/20 Range/Units 11:26 WBC (4.5-11.0) X10^3/uL RBC (4.0-5.2) X10^6/uL Hgb (12.0-16.0) g/dL Hct (36-46) % MCV (80-100) fL MCH (26-34) PG MCHC (30-36) % RDW (11.6-14.8) % Plt Count (150-400) X10^3/uL Neut % (Auto) (50-75) % Lymph % (Auto) (25-40) % [place] % (Auto) (3-14) % Eos % (Auto) (2-4) % Baso % (Auto) (0-2) % Neut # (Auto) (2489-3315) /uL Lymph # (Auto) (4215-4400) /uL [place] # (Auto) (0-900) /uL Eos # (Auto) (0-450) /uL Baso # (Auto) (0-100) /uL Sodium (137-145) mmol/L Potassium (3.4-5.1) mmol/L Chloride (98-107) mmol/L Carbon Dioxide (22-32) mmol/L BUN (7-17) mg/dL Creatinine (0.52-1.04) mg/dL Estimated GFR (>60) mL/min BUN/Creatinine Ratio (6-22) Glucose (80-110) mg/dL Lactate 3.0 H (0.7-2.1) mmol/L Calcium (8.4-10.2) mg/dL Magnesium (1.6-2.3) mg/dL Total Bilirubin (0.2-1.3) mg/dL AST (14-36) IU/L ALT (<35) IU/L Alkaline Phosphatase (38-126) U/L Total Creatine Kinase (30-135) U/L CK-MB (CK-2) CK-MB (CK-2) Rel Index Troponin I (0.01-0.034) ng/mL NT-Pro-B Natriuret Pep (<125) pg/mL Total Protein (6.3-8.2) g/dL Albumin (3.5-5.0) g/dL Globulin (1.7-4.1) g/dL Albumin/Globulin Ratio (1.0-2.8) Procalcitonin (<0.5) ng/mL Point of Care Testing Test Results Not applicable Imaging Data Chest x-ray: Radiologist's Impression: PROCEDURE:? XR CHEST 1V ? INDICATIONS:? Dyspnea ? TECHNIQUE:? One view of the chest was acquired.? ? COMPARISON:? [facility], CR, XR CHEST 1V, 06/24/2020, 20:13. ? FINDINGS:? ? Surgical changes and devices:? None.? ? Lungs and pleura:? Patchy mixed interstitial and airspace opacities in both lungs are new from the prior study.? No pleural effusions or pneumothorax.? ? Mediastinum:? Mediastinal contours appear normal.? Heart size is mildly enlarged.? ? Bones and chest wall:? No suspicious bony lesions.? Overlying soft tissues appear unremarkable.? ? IMPRESSION:? Patchy mixed interstitial and airspace opacity in both lungs, new from prior study.? Findings may be infectious or represent pulmonary edema.? Unchanged mild cardiomegaly.? ? Dictated by: Frank Amaral M.D. on 12/21/2020 at 12:46 ? ? ECG Data Interpretation: AFib with RVR rate [address] changes clots of artifact noted EKG 2. Sinus rhythm with PACs no ST changes no AV block MDM Narrative Medical decision making narrative: Patient is noted to be in AFib with RVR. Also has acute congestive heart failure with BNP significantly elevated at 12,500. She did have 1 episode of night sweats and has mild leukocytosis of 14 along with lactic acid of 3.0. For possible infection and sepsis. She is hemodynamically stable not in septic shock and currently in acute congestive heart failures no septic fluids were given. Her AFib with RVR is minimally responsible to metoprolol. Not able to give diltiazem secondary to acute congestive heart failure. She states that she does not want to be cardioverted she has been cardioverted numerous times it does not state her work. Previously amiodarone has worked for her. 1530- Dr. Barnes, recommends cardioverting secondary to significant congestive heart failure. Also recommends amiodarone. Patient was agreeable to cardioversion. She did convert to sinus rhythm with PACs. Discussion with Dr. dubon who agrees with p.o. amiodarone and admission. Discharge Plan Departure Patient Disposition: Admitted As Inpatient Clinical Impression: Atrial fibrillation with rapid ventricular response, Congestive heart failure Admit Date/Time: 12/21/20 15:23 Admit Provider: Sharee Dubon
--- NOTE | 2020-12-21 11:38 | DI.RAD.S_ITS ---
PROCEDURE: XR CHEST 1V INDICATIONS: Dyspnea TECHNIQUE: One view of the chest was acquired. COMPARISON: [facility], CR, XR CHEST 1V, 06/24/2020, 20:13. FINDINGS: Surgical changes and devices: None. Lungs and pleura: Patchy mixed interstitial and airspace opacities in both lungs are new from the prior study. No pleural effusions or pneumothorax. Mediastinum: Mediastinal contours appear normal. Heart size is mildly enlarged. Bones and chest wall: No suspicious bony lesions. Overlying soft tissues appear unremarkable. IMPRESSION: Patchy mixed interstitial and airspace opacity in both lungs, new from prior study. Findings may be infectious or represent pulmonary edema. Unchanged mild cardiomegaly. Dictated by: Frank Amaral M.D. on 12/21/2020 at 12:46 Approved by: Frank Amaral M.D. on 12/21/2020 at 12:47
[2020-12-21 11:55] LABS: Add Manual Diff / Slide Review NO; Basophils Absolute Auto 100 /uL (0-100); Basophils Percent Auto 0.4 % (0-2); Eosinophils Absolute Auto 100 /uL (0-450); Eosinophils Percent Auto 0.4 % (2-4); Hematocrit 34.8 % (36-46); Hemoglobin 11.8 g/dL (12.0-16.0); Lymphocytes Absolute Auto 1600 /uL (1100-4500); Lymphocytes Percent Auto 11.7 % (25-40); Mean Corpuscular Hemoglobin 31.7 PG (26-34); Mean Corpuscular Volume 93.2 fL (80-100); Monocytes Absolute Auto 1400 /uL (0-900); Monocytes Percent Auto 10.2 % (3-14); Neutrophils Absolute Auto 10900 /uL (1500-7000); Neutrophils Percent Auto 77.3 % (50-75); Platelet Count 351 X10^3/uL (150-400); Red Blood Cell Count 3.74 X10^6/uL (4.0-5.2); Red Cell Distribution Width 15.1 % (11.6-14.8); White Blood Cell Count 14.1 X10^3/uL (4.5-11.0)
[2020-12-21 12:08] LABS: Alanine Aminotransferase 75 IU/L (<35); Albumin Globulin Ratio 0.8 (1.0-2.8); Alkaline Phosphatase 142 U/L (38-126); Aspartate Aminotransferase 66 IU/L (14-36); BUN Creatinine Ratio 32.6 (6-22); Bilirubin Total 0.9 mg/dL (0.2-1.3); Blood Urea Nitrogen 58 mg/dL (7-17); Calcium 9.8 mg/dL (8.4-10.2); Carbon Dioxide 24 mmol/L (22-32); Chloride 104 mmol/L (98-107); Creatine Kinase 51 U/L (30-135); Estimated Glomerular Filt Rate 28.2 mL/min (>60); Globulin 4.8 g/dL (1.7-4.1); Glucose 95 mg/dL (80-110); Magnesium 2.5 mg/dL (1.6-2.3); Potassium 3.7 mmol/L (3.4-5.1); Sodium 143 mmol/L (137-145); Total Protein 8.8 g/dL (6.3-8.2)
[2020-12-21 12:09] LABS: HEMOLYSIS 100 (0-50)
[2020-12-21 12:17] LABS: NT-proBNP (BNP-Adult 18+) 12500 pg/mL (<125)
[2020-12-21 12:19] LABS: Troponin I 0.107 ng/mL (0.01-0.034)
[2020-12-21 12:24] LABS: Procalcitonin 0.18 ng/mL (<0.5)
[2020-12-21] MEDS: levoFLOXacin 500 MG/100 ML PIGGYBACK 100 MG IV (13:12)
[2020-12-21] MEDS: METOPROLOL TARTRATE 5 MG/5 ML INJ IV (13:12)
[2020-12-21] MEDS: FUROSEMIDE 40 MG/4 ML VIAL IV (13:12)
[2020-12-21 13:50] LABS: Reflexed Lactate in 2 Hours Y
[2020-12-21] MEDS: propofoL 200 MG/20 ML VIAL 80 MG IV (14:40)
[2020-12-21] MEDS: AMIODARONE 200 MG TABLET 400 MG PO ×2 (15:43→21:55)
[2020-12-21 18:11] LABS: COVID19 - ADMIT (NP swab/PCR) Negative (Negative)
--- NOTE | 2020-12-21 19:19 | P.HP_ITS ---
History of Present Illness History of Present Illness Date Patient Seen: 12/21/20 Chief complaint: shortness of breath/cough Narrative: Patient is a 70-year-old female with a history of chronic atrial fibrillation, congestive heart failure, history of CVA with left-sided deficits, hyperlipidemia who was in her usual state of health until the past few days. Patient had intermittent palpitations. But she noted increasing shortness of breath. She typically is able to transfer from her wheelchair to a toilet but was unable to do so because of her shortness of breath. Patient also reported orthopnea as well. She was evaluated in the emergency room. And found to have atrial fibrillation with rapid ventricular response rate. Multiple attempts at medications were tried to control her heart rate including metoprolol several doses and diltiazem IV. This did not control her rate. After consultation with Cardiology the patient underwent DC cardioversion. After cardioversion her heart rate improved and she converted to sinus rhythm with a rate of 54. In addition the patient was started on amiodarone. She has previously had success with amiodarone. Patient was noted to be in congestive heart failure and given IV Lasix for this as well. [place] [address], her troponin was mildly elevated at 0.107. Her AST was 66 ALT is 75 alk-phos of 142. Her BUN was 58 with a creatinine of 1.78. Patient reported a fever. Her white count was elevated at 14.1. She was empirically started on ceftriaxone for presumed urinary tract infection. Patient is admitted to the hospital at this time for further treatment. Patient History Medical History Atrial fibrillation Congestive heart failure CVA (cerebral vascular accident) History of CVA with residual deficit HLD (hyperlipidemia) Surgical History Hx of cholecystectomy Family & Social History Social History: household members family Safety & Behavioral: Feels Safe in Current Yes Environment Tobacco & Substance use: Tobacco type cigarettes Smoking Status Former smoker alcohol intake current alcohol intake frequency holiday/special occasion Substance Use Type does not use Meds Home Medications and Allergies Home Medications Medication Instructions Recorded Confirmed Type cholecalciferol (vitamin D3) 125 5,000 unit PO DAILY 12/16/17 05/31/19 History mcg (5,000 unit) tablet (Vitamin D3) digoxin 125 mcg (0.125 mg) tablet 0.125 mg PO DAILY 12/16/17 05/31/19 History diltiazem HCl 240 mg 240 mg PO BID 12/16/17 05/31/19 History tablet,extended release 24 hr divalproex 500 mg tablet,delayed 500 mg PO TID 12/16/17 05/31/19 History release folic acid 1 mg tablet 1 mg PO DAILY 12/16/17 05/31/19 History furosemide 20 mg tablet 20 mg PO PRN PRN 12/16/17 05/31/19 History metoprolol tartrate 100 mg tablet 100 mg PO TID 12/16/17 05/31/19 History niacin 1,000 mg tablet,extended 1,000 mg PO BID 12/16/17 05/31/19 History release potassium chloride 10 mEq 10 meq PO PRN PRN 12/16/17 05/31/19 History tablet,extended release rivaroxaban 20 mg tablet (Xarelto) 20 mg PO DAILY 12/16/17 05/31/19 History rosuvastatin 40 mg tablet (Crestor) 40 mg PO DAILY 12/16/17 05/31/19 History sertraline 50 mg tablet 50 mg PO DAILY 12/16/17 05/31/19 History vitamin B complex 1 tab PO DAILY 12/16/17 05/31/19 History loratadine 10 mg tablet (Claritin) 10 mg PO DAILY 05/31/19 05/31/19 History meclizine 25 mg tablet 25 mg PO TID PRN #10 tab 06/24/20 Rx ondansetron 4 mg disintegrating 4 mg PO Q8H PRN #10 tab 06/24/20 Rx tablet Allergies Allergy/AdvReac Type Severity Reaction Status Date / Time Penicillins Allergy Rash Verified 12/21/20 11:31 Review of Systems Review of Systems Narrative: Ten point review of systems is negative Exam Vital Signs (past 8 hours): - 12/21/20 13:40 12/21/20 14:45 12/21/20 14:50 Temperature Pulse Rate 143 H 60 66 Respiratory Rate 18 8 L 16 Blood Pressure 114/84 104/48 L 110/64 Pulse Oximetry 98 94 94 12/21/20 14:55 12/21/20 15:00 12/21/20 15:03 Temperature 98.5 F Pulse Rate 60 56 L 58 L Respiratory Rate 20 19 14 Blood Pressure 103/59 L 110/56 L Pulse Oximetry 92 98 12/21/20 15:05 12/21/20 15:10 12/21/20 15:30 Temperature Pulse Rate 57 L 57 L 58 L Respiratory Rate 16 16 19 Blood Pressure 115/64 115/64 Pulse Oximetry 92 98 92 12/21/20 16:50 Temperature 97.6 F Pulse Rate 98 H Respiratory Rate 21 Blood Pressure 135/49 L Pulse Oximetry 93 Oxygen Delivery Method Room Air Oxygen Flow Rate 0 Narrative Exam Narrative: Pleasant female lying in bed in no obvious distress [facility] Other: HEENT: Normocephalic atraumatic, extraocular muscles are intact, oropharynx is clear, neck is supple without adenopathy Resp Other: Lungs reveal decreased breath sounds with diffuse crackles 2[address] bilaterally Cardio Other: Cardiac exam: Regular rate and rhythm normal S1-S2 with a 2/6 systolic ejection murmur GI Other: Abdomen soft nontender nondistended without hepatosplenomegaly Neuro Other: Patient has a dense hemiparesis involving the right upper extremity, she has weakness in the right lower extremity as well, she has brisk and hyper reflexive reflexes bilateral Extrem Other: Extremity no lesion Psych Other: Patient is awake and alert, she is calm, no evidence of agitation, no delusions, no hallucinations or thought distortions. Objective Labs Result Diagrams: 12/21/20 11:26 12/21/20 11:26 Labs: Laboratory Results - last 24 hr 12/21/20 12/21/20 12/21/20 11:26 11:26 11:26 WBC 14.1 H RBC 3.74 L Hgb 11.8 L Hct 34.8 L MCV 93.2 MCH 31.7 MCHC 34.0 RDW 15.1 H Plt Count 351 Neut % (Auto) 77.3 H Lymph % (Auto) 11.7 L [place] % (Auto) 10.2 Eos % (Auto) 0.4 L Baso % (Auto) 0.4 Neut # (Auto) 24439 H Lymph # (Auto) 1600 [place] # (Auto) 1400 H Eos # (Auto) 100 Baso # (Auto) 100 Sodium 143 Potassium 3.7 Chloride 104 Carbon Dioxide 24 BUN 58 H Creatinine 1.78 H Estimated GFR 28.2 L BUN/Creatinine Ratio 32.6 H Glucose 95 Lactate Calcium 9.8 Magnesium 2.5 H Total Bilirubin 0.9 AST 66 H ALT 75 H Alkaline Phosphatase 142 H Total Creatine Kinase 51 CK-MB (CK-2) TNP CK-MB (CK-2) Rel Index TNP Troponin I 0.107 H NT-Pro-B Natriuret Pep 24037 H Total Protein 8.8 H Albumin 4.0 Globulin 4.8 H Albumin/Globulin Ratio 0.8 L Procalcitonin 0.18 SARS-CoV-2 (PCR) 12/21/20 12/21/20 11:26 16:40 WBC RBC Hgb Hct MCV MCH MCHC RDW Plt Count Neut % (Auto) Lymph % (Auto) [place] % (Auto) Eos % (Auto) Baso % (Auto) Neut # (Auto) Lymph # (Auto) [place] # (Auto) Eos # (Auto) Baso # (Auto) Sodium Potassium Chloride Carbon Dioxide BUN Creatinine Estimated GFR BUN/Creatinine Ratio Glucose Lactate 3.0 H Calcium Magnesium Total Bilirubin AST ALT Alkaline Phosphatase Total Creatine Kinase CK-MB (CK-2) CK-MB (CK-2) Rel Index Troponin I NT-Pro-B Natriuret Pep Total Protein Albumin Globulin Albumin/Globulin Ratio Procalcitonin SARS-CoV-2 (PCR) Negative Assessment & Plan Assessment & Plan narrative: 70-year-old female admitted to the hospital for atrial fibrillation with a rapid ventricular response rate -patient has chronic persistent atrial fibrillation -she typically takes Cardizem CD 240 twice daily, metoprolol 100 t.i.d., in addition to Xarelto 20 q.day -patient received DC cardioversion in the emergency room with improvement of her rate -patient was initiated on amiodarone loading, she will receive 400 b.i.d. then switch to 200 daily -I will hold her Cardizem this evening, but continue metoprolol at 100 b.i.d. -will continue Xarelto 20 mg daily Acute congestive heart failure -echocardiogram from May of 2019 reveal mild to moderate concentric left ventricular hypertrophy, ejection fraction 55-60%, severely dilated left atrium, moderate to severely dilated right atrium, mild aortic regurgitation -moderate mitral regurgitation, there is a mildly enlarged ascending aorta -will continue Lasix 40 mg IV twice daily Acute on chronic kidney disease -creatinine 1.05 in May, today her creatinine is 1.78 -will recheck labs in the morning -will avoid nephrotoxic agent Elevated LFTs -suspect congestive hepatopathy related to her congestive heart failure -will continue to follow labs closely Hyperlipidemia -will hold crestor , will recheck lft's in am Elevated Troponin -No chest Pain -Suspect Demand Ischemia -Will follow Troponins/EKG Fever/Elevated WBC -on ceftriaxone -will check U/A -repeat labs -lactate 3.0, Patient reports she would like to be a full code She states her daughter is her surrogate decision maker I have utilized all available resources to review, update, and confirm her current medications. Time Spent With Patient Critical Care time: I spent a total of [] minutes of critical care time on this patient's care today; this time is exclusive of procedural time.
[2020-12-21 20:17] LABS: Lactate (Lactic Acid) 1.6 mmol/L (0.7-2.1)
[2020-12-21] MEDS: METOPROLOL IR 50 MG TABLET 100 MG PO (20:42)
[2020-12-21 21:28] LABS: Creatine Kinase 53 U/L (30-135)
[2020-12-21] MEDS: DOCUSATE 100 MG CAPSULE PO (21:30)
[2020-12-21] MEDS: RIVAROXABAN 10 MG TABLET 20 MG PO (21:31)
[2020-12-21] MEDS: DIVALPROEX DR 250 MG TABLET 500 MG PO (21:31)
[2020-12-21 21:49] LABS: Troponin I 0.156 ng/mL (0.01-0.034)
--- NOTE | 2020-12-21 23:18 | PC.NURSE ---
Evening Shift Note Patient with sustained run of SVT at approximately 2029. Patient asymptomatic, VSS, converted self back to baseline rhythm. MD informed, VORB for STAT EKG and administration of scheduled PO metoprolol 100mg IR PO. 2154- Patient with intermittent non sustained runs of vtach 6-10 beats, patient converting self to baseline rhythm. Patient asymptomatic, VSS. MD informed, VORB to administer Amniodarone 400mg PO. 2234- Provider updated on patient status and continued runs of non sustained vtach, patient asymptomatic and converts self back to baseline rhythm. Per provider to continue to monitor patient, if HR sustained greater than 110, will give PO Diltiazem. Provider also updated on up trending troponin. No new orders, will update overnight babysitter nurse,
[2020-12-22] VITALS (8 sets, daily range): BP systolic 115–131; BP diastolic 55–69; PULSE 60–70; RESP 16–24; TEMP 36.1–36.9; O2SAT 92–96
[2020-12-22 05:38] LABS: Add Manual Diff / Slide Review NO; Basophils Absolute Auto 0 /uL (0-100); Basophils Percent Auto 0.2 % (0-2); Eosinophils Absolute Auto 0 /uL (0-450); Eosinophils Percent Auto 0.2 % (2-4); Hematocrit 32.6 % (36-46); Hemoglobin 10.9 g/dL (12.0-16.0); Lymphocytes Absolute Auto 1300 /uL (1100-4500); Lymphocytes Percent Auto 13.8 % (25-40); Mean Corpuscular HGB Conc 33.5 % (30-36); Mean Corpuscular Hemoglobin 31.1 PG (26-34); Mean Corpuscular Volume 92.8 fL (80-100); Monocytes Absolute Auto 1600 /uL (0-900); Monocytes Percent Auto 16.9 % (3-14); Neutrophils Absolute Auto 6700 /uL (1500-7000); Neutrophils Percent Auto 68.9 % (50-75); Platelet Count 283 X10^3/uL (150-400); Red Blood Cell Count 3.51 X10^6/uL (4.0-5.2); Red Cell Distribution Width 15.2 % (11.6-14.8); White Blood Cell Count 9.7 X10^3/uL (4.5-11.0)
[2020-12-22 05:44] LABS: Alanine Aminotransferase 51 IU/L (<35); Albumin 3.3 g/dL (3.5-5.0); Albumin Globulin Ratio 0.8 (1.0-2.8); Alkaline Phosphatase 110 U/L (38-126); Aspartate Aminotransferase 29 IU/L (14-36); BUN Creatinine Ratio 35.4 (6-22); Bilirubin Total 0.4 mg/dL (0.2-1.3); Blood Urea Nitrogen 57 mg/dL (7-17); Calcium 9.1 mg/dL (8.4-10.2); Carbon Dioxide 25 mmol/L (22-32); Chloride 105 mmol/L (98-107); Estimated Glomerular Filt Rate 31.6 mL/min (>60); Globulin 3.9 g/dL (1.7-4.1); Glucose 94 mg/dL (80-110); HEMOLYSIS < 15 (0-50); Magnesium 2.4 mg/dL (1.6-2.3); Potassium 3.4 mmol/L (3.4-5.1); Sodium 141 mmol/L (137-145); Total Protein 7.2 g/dL (6.3-8.2)
[2020-12-22 06:01] LABS: Troponin I 0.169 ng/mL (0.01-0.034)
[2020-12-22] MEDS: LORATADINE 10 MG TABLET PO (09:30)
[2020-12-22] MEDS: DOCUSATE 100 MG CAPSULE PO ×2 (09:30→21:01)
[2020-12-22] MEDS: FOLIC ACID 1 MG TABLET PO (09:30)
[2020-12-22] MEDS: CHOLECALCIFEROL (VITAMIN D3) 5,000 UNIT TABLET 5000 UNIT PO (09:30)
[2020-12-22] MEDS: AMIODARONE 200 MG TABLET 400 MG PO ×2 (09:30→16:00)
[2020-12-22] MEDS: DIVALPROEX DR 250 MG TABLET 500 MG PO ×3 (09:30→21:01)
[2020-12-22] MEDS: METOPROLOL IR 50 MG TABLET 100 MG PO ×2 (09:30→21:01)
[2020-12-22] MEDS: RIVAROXABAN 10 MG TABLET 20 MG PO (09:31)
[2020-12-22] MEDS: SERTRALINE 50 MG TABLET PO (09:31)
[2020-12-22] MEDS: NIACIN 500 MG TAB ER 1000 MG PO ×2 (09:31→21:02)
--- NOTE | 2020-12-22 12:48 | CM.DANOTE ---
DCP/Assessment: Reviewed chart. Patient is a 70yr old female admitted to [facility] with SOB. PCP is Dr. Ida Tellez. Primary payor 1)[employer] ADV. Met with patient this afternoon explained CM/SW role. Patient reports that she resides with her daughter/Sylvie and her family in [place]. Patient reports that she is primarily w/c bound. Patient moved in with her daughter several years ago after she had stroke. Patient plans to return home when medically stable. Patient requesting that OIL AND GAS RECRUITER call her daughter to answer questions about usp planning. Left vm with daughter with OIL AND GAS RECRUITER phone number. P: Anticipate home with HH vs. Home? Unclear at this time if HH indicated. Daughter requesting to speak with CM team re: long-term resources per patient, vm left. KJS Discharge Planning/Care Management CM Discharge Assessment Start: 12/22/20 12:42 Freq: Status: Active Protocol: Document 12/22/20 12:42 KJS (Rec: 12/22/20 12:48 KJS [id number]) Discharge Planning Assessment Assigned Head Animal Keeper NATHAN Hoffman Contact Information Sylvie Zepeda (daughter) # [phone] Advance Directives? Yes Advance Directives on File No History Provided By Patient,Medical Record Prior Living Arrangements House Household Members family Type of transporation used prior to Relies on Others admit Independent with ADL's No: w/c bound at baseline. Is patient alert and oriented? Yes Caregiver for Another No DME Already Rented / Owned Wheelchair Comment Anticipate return home with daughter and possible HH? pending hospitalization. Barriers to Discharge No Discharge Plan Home Transportation Arrangement Family to provide transport. Additional Comment Pending Whiteboard Updated in Patient Room with Yes name and ext. # of Head Animal Keeper Review Status In Process Next Review Type Continued Stay Review
[2020-12-22] MEDS: FUROSEMIDE 40 MG/4 ML VIAL IV (14:15)
[2020-12-22] MEDS: POTASSIUM CHLORIDE 20 MEQ TAB 40 MEQ PO (14:15)
--- NOTE | 2020-12-22 15:41 | PC.NURSE ---
Pt has had 2 runs of V tach this day shift as reported by SPACE SCHEDULER's managing telemetry. One was a 5 beat run and the second was a 10 beat run. Pt has been asymptomatic and has denied chest pain. Dr. Dubon has been made aware and there are no new orders at this time.
--- NOTE | 2020-12-22 18:17 | PM.PN.1 ---
Subjective Subjective Date Patient Seen: 12/22/20 Interval history: 70-year-old patient admitted to the hospital with rapid AFib and congestive heart failure. The patient developed a 5 beat run of V-tach earlier. This was followed by a 10 beat run of V-tach. In addition she complains of an ear infection with drainage of her left ear. Overall her breathing appears significantly improved. Patient denies any chest pain Exam Vital Signs (past 8 hours): - 12/22/20 11:42 12/22/20 15:30 Temperature 97.8 F 97.6 F Pulse Rate 64 70 Respiratory Rate 17 24 Blood Pressure 128/69 118/59 L Pulse Oximetry 93 92 Oxygen Delivery Method Nasal Cannula Oxygen Flow Rate 1.5 Narrative Exam Narrative: Pleasant elderly female lying in bed in no obvious distress HENMT Other: Left ear with sanguinous yellowish drainage Resp Other: Lungs reveal bibasilar crackles Cardio Other: Cardiac exam: Irregularly irregular normal S1-S2 GI Other: Abdomen soft nontender nondistended Extrem Other: Extremity no edema Objective Labs Result Diagrams: 12/22/20 04:56 12/22/20 04:56 Labs: Laboratory Results - last 24 hr 12/21/20 12/21/20 12/22/20 20:00 20:00 04:56 WBC RBC Hgb Hct MCV MCH MCHC RDW Plt Count Neut % (Auto) Lymph % (Auto) [place] % (Auto) Eos % (Auto) Baso % (Auto) Neut # (Auto) Lymph # (Auto) [place] # (Auto) Eos # (Auto) Baso # (Auto) Sodium 141 Potassium 3.4 Chloride 105 Carbon Dioxide 25 BUN 57 H Creatinine 1.61 H Estimated GFR 31.6 L BUN/Creatinine Ratio 35.4 H Glucose 94 Lactate 1.6 Calcium 9.1 Magnesium Total Bilirubin 0.4 AST 29 ALT 51 H Alkaline Phosphatase 110 Total Creatine Kinase 53 CK-MB (CK-2) TNP CK-MB (CK-2) Rel Index TNP Troponin I 0.156 H* Total Protein 7.2 Albumin 3.3 L Globulin 3.9 Albumin/Globulin Ratio 0.8 L 12/22/20 12/22/20 04:56 04:56 WBC 9.7 RBC 3.51 L Hgb 10.9 L Hct 32.6 L MCV 92.8 MCH 31.1 MCHC 33.5 RDW 15.2 H Plt Count 283 Neut % (Auto) 68.9 Lymph % (Auto) 13.8 L [place] % (Auto) 16.9 H Eos % (Auto) 0.2 L Baso % (Auto) 0.2 Neut # (Auto) 6700 Lymph # (Auto) 1300 [place] # (Auto) 1600 H Eos # (Auto) 0 Baso # (Auto) 0 Sodium Potassium Chloride Carbon Dioxide BUN Creatinine Estimated GFR BUN/Creatinine Ratio Glucose Lactate Calcium Magnesium 2.4 H Total Bilirubin AST ALT Alkaline Phosphatase Total Creatine Kinase CK-MB (CK-2) CK-MB (CK-2) Rel Index Troponin I 0.169 H* Total Protein Albumin Globulin Albumin/Globulin Ratio PFSH Medical History Atrial fibrillation Congestive heart failure CVA (cerebral vascular accident) History of CVA with residual deficit HLD (hyperlipidemia) Surgical History Hx of cholecystectomy Social History household members: family Smoking Status: Former smoker alcohol intake: current Assessment & Plan Assessment & Plan narrative: 70-year-old female admitted to the hospital for atrial fibrillation with a rapid ventricular response rate -patient has chronic persistent atrial fibrillation -she typically takes Cardizem CD 240 twice daily, metoprolol 100 t.i.d., in addition to Xarelto 20 q.day -patient received DC cardioversion in the emergency room with improvement of her rate -patient was initiated on amiodarone loading, she will receive 400 b.i.d. then switch to 200 daily -I will hold her Cardizem this evening, but continue metoprolol at 100 b.i.d. -will continue Xarelto 20 mg daily given renal insufficiency Xarelto will be decreased to 15 mg daily -heart rate currently controlled, will continue current medications Acute congestive heart failure -echocardiogram from May of 2019 reveal mild to moderate concentric left ventricular hypertrophy, ejection fraction 55-60%, severely dilated left atrium, moderate to severely dilated right atrium, mild aortic regurgitation -moderate mitral regurgitation, there is a mildly enlarged ascending aorta -will continue Lasix 40 mg IV twice daily Acute on chronic kidney disease -creatinine 1.05 in May, today her creatinine is 1.78 -will recheck labs in the morning -will avoid nephrotoxic agent -renal function improving, then 1.6 today Elevated LFTs -suspect congestive hepatopathy related to her congestive heart failure -will continue to follow labs closely Hyperlipidemia -will hold crestor , will recheck lft's in am Elevated Troponin -No chest Pain -Suspect Demand Ischemia -Will follow Troponins/EKG -repeat troponin 0.169, patient without any complaints of chest pain, suspect demand ischemia related to atrial fibrillation and congestive heart failure, will continue to follow Fever/Elevated WBC -on ceftriaxone -will check U/A -repeat labs -lactate 3.0, -repeat lactate 1.6, UA not done will DC antibiotics at this time Time Spent With Patient Critical Care time: I spent a total of [] minutes of critical care time on this patient's care today; this time is exclusive of procedural time.
[2020-12-22] MEDS: CIPROFLOXACIN/DEXAMETH OTIC SUSP 4 DROPS EAR-LEFT (18:43)
[2020-12-22] MEDS: ACETAMINOPHEN 325 MG TABLET 650 MG PO (21:01)
[2020-12-23] VITALS (7 sets, daily range): BP systolic 114–129; BP diastolic 54–77; PULSE 51–67; RESP 16–18; TEMP 36.1–36.8; O2SAT 91–93
[2020-12-23] MEDS: FUROSEMIDE 40 MG/4 ML VIAL IV ×3 (00:17→23:32)
[2020-12-23 05:34] LABS: Alanine Aminotransferase 37 IU/L (<35); Albumin 3.1 g/dL (3.5-5.0); Albumin Globulin Ratio 0.8 (1.0-2.8); Alkaline Phosphatase 84 U/L (38-126); Aspartate Aminotransferase 24 IU/L (14-36); BUN Creatinine Ratio 36.6 (6-22); Bilirubin Total 0.5 mg/dL (0.2-1.3); Blood Urea Nitrogen 53 mg/dL (7-17); Calcium 9.1 mg/dL (8.4-10.2); Carbon Dioxide 30 mmol/L (22-32); Chloride 105 mmol/L (98-107); Estimated Glomerular Filt Rate 35.7 mL/min (>60); Globulin 4.1 g/dL (1.7-4.1); Glucose 113 mg/dL (80-110); HEMOLYSIS < 15 (0-50); Potassium 4.4 mmol/L (3.4-5.1); Sodium 143 mmol/L (137-145); Total Protein 7.2 g/dL (6.3-8.2)
[2020-12-23 05:45] LABS: Troponin I 0.108 ng/mL (0.01-0.034)
--- NOTE | 2020-12-23 07:44 | DI.ECHO.S_ITS ---
[facility]---------+ [facility] +---------+ : : [address] : : : : [id number] : : : : Phone: [phone]+ Echocardiogram Report + + :Name: MY DALTON Study Date: 12/23/2020 Height: 66 in : :[facility] ReadingLocation: Weight: 162 lb : : Gender: Female BSA: 1.8 m2 : :: 1950 Age: 70 yrs BP: 122/66 mmHg: :Reason For Study: ELEVATED TROPONIN : :Ordering Physician: DORI, : :CHACE Performed By: Hillary Gregory : :Referring: CHACE MEADOWS : + + Interpretation Summary Sinus bradycardia. Heart rate is 50-52 bpm. Normal LV size; there is apical hypertrophy but otherwise normal wall thickness. There is mild global hypokinesis. EF is 45-50%. Stage III diastolic dysfunction. Severe biatrial enlargement. Aortic sclerosis with mild associated aortic regurgitation. Mild MAC with mild associated MR; otherwise no valvular abnormalities. Estimated PA systolic pressure is 39 mm Hg assuming RA pressure of 3 mm Hg. Compared to prior study 06/02/2019 afib is no longer present. Sinus bradycardia is new. LV is notably less dynamic. EF is down from 55-60% to 45-50%. Procedure: A two-dimensional transthoracic echocardiogram with color flow and Doppler was performed. The study quality was technically adequate. Comparison is made with the echocardiogram of 06/02/2019. The heart rate ranged between 51-59 bpm during the study. Left Ventricle: Apical hypertrophy is present. The left ventricle is normal in size. The ejection fraction is estimated to be 45-50%. Right Ventricle: The right ventricle is at the upper limits of normal in size. Right ventricular systolic function is mildly reduced. Atria: There is severe biatrial enlargement. The right atrium is mildly dilated. There is no Doppler evidence for an interatrial shunt. Mitral Valve: There is mild mitral annular calcification. The mitral valve leaflets are slightly calcified. There is mild mitral regurgitation. Aortic Valve: The aortic valve is trileaflet. The aortic valve is mildly calcified. The aortic valve opens well. There is moderate aortic valve sclerosis. There is no aortic valve stenosis. There is mild aortic regurgitation. Tricuspid Valve: The tricuspid valve is normal in structure and function. There is mild to moderate tricuspid regurgitation. The right ventricular systolic pressure is estimated to be at least 39 mmHg based on an estimated right atrial pressure of 3 mm Hg. Pulmonic Valve: The pulmonic valve is not well visualized. There is trace pulmonic regurgitation. Great Vessels: The aortic root is normal size. The ascending aorta could not be visualized. The IVC is of normal diameter and collapses greater than 50% with a sniff. This suggests a low right atrial pressure of 3 mm Hg. Pericardium/ Pleura There is no pericardial effusion. There is no pleural effusion. MMode/2D Measurements & Calculations LVIDd: 5.3 cm LVOT diam: 1.6 cm LVIDs: 3.3 cm Ao root diam: 3.0 cm FS: 38.3 % IVSd: 0.80 cm LVPWd: 0.57 cm LV stout. diameter/BSA (cm/m^2): 2.9 LV sys. diameter/BSA (cm/m^2): 1.8 LA A2 area: 29.9 cm2 RA long axis: 6.8 cm LA A4 area: 32.2 cm2 RA area: 22.8 cm2 LA length (vol): 7.0 cm RA vol: 64.4 ml LA vol: 116.5 ml RA : 35.2 ml/m2 LA vol index: 63.7 ml/m2 IVC diam: 1.6 cm RVD1 (basal): 4.0 cm TAPSE: 1.6 cm Doppler Measurements & Calculations Ao V2 max: 190.4 cm/sec LVOT Max Remington: 56.3 cm/sec Ao V2 mean: 125.3 cm/sec LV V1 max P.3 mmHg Ao max P.5 mmHg LV V1 VTI: 11.5 cm Ao mean P.2 mmHg LALO(I,D): 0.59 cm2 Ao V2 VTI: 39.0 cm LALO(V,D): 0.59 cm2 sev ratio: 0.29 LALO indexed to BSA (cm^2/m^2): 0.32 AI P1/2t: 574.5 msec AI dec slope: 187.0 cm/sec2 MV E max remington: 96.1 cm/sec TR max remington: 300.5 cm/sec MV A max remington: 2.0 cm/sec TR max P.1 mmHg MV E/A: 47.6 PA V2 max: 82.6 cm/sec Med Peak E' Remington: 3.9 cm/sec PA V2 mean: 57.6 cm/sec E/E' med: 24.7 PA mean P.5 mmHg Lat Peak E' Remington: 4.8 cm/sec PA pr(Accel): 36.2 mmHg E/E' lat: 20.1 E/e' average: 22.4 MV dec time: 0.18 sec MVA(VTI): 1.1 cm2 MV V2 mean: 60.0 cm/sec SV(LVOT): 22.9 ml MV mean P.7 mmHg MV V2 VTI: 21.0 cm Electronically signed by: Cathy Stevens M.D. on Reading Physician:12/23/2020 03:59 PM
[2020-12-23] MEDS: CHOLECALCIFEROL (VITAMIN D3) 5,000 UNIT TABLET 5000 UNIT PO (08:24)
[2020-12-23] MEDS: DOCUSATE 100 MG CAPSULE PO ×2 (08:24→20:29)
[2020-12-23] MEDS: AMIODARONE 200 MG TABLET 400 MG PO ×2 (08:24→17:12)
[2020-12-23] MEDS: NIACIN 500 MG TAB ER 1000 MG PO ×2 (08:24→20:29)
[2020-12-23] MEDS: DIVALPROEX DR 250 MG TABLET 500 MG PO ×3 (08:24→20:29)
[2020-12-23] MEDS: SERTRALINE 50 MG TABLET PO (08:24)
[2020-12-23] MEDS: LORATADINE 10 MG TABLET PO (08:24)
[2020-12-23] MEDS: FOLIC ACID 1 MG TABLET PO (08:24)
[2020-12-23] MEDS: METOPROLOL IR 50 MG TABLET 100 MG PO (08:25)
[2020-12-23] MEDS: RIVAROXABAN 10 MG TABLET 15 MG PO (08:25)
[2020-12-23] MEDS: ACETAMINOPHEN 325 MG TABLET 650 MG PO ×2 (14:44→20:29)
--- NOTE | 2020-12-23 15:57 | PM.PN.1 ---
Subjective Subjective Date Patient Seen: 12/23/20 Interval history: The patient is a 70 y/o female admitted for afib and congestive heart failure. She reports her breathing has improved but she is still short of breath. She denies chest pain and reports no chest pain prior to or during admission. Exam Vital Signs (past 8 hours): - 12/23/20 08:00 12/23/20 12:40 Temperature 97.3 F L 97.5 F L Pulse Rate 58 L 54 L Respiratory Rate 16 16 Blood Pressure 123/68 123/77 Pulse Oximetry 92 93 Oxygen Delivery Method Nasal Cannula Oxygen Flow Rate 1.5 Narrative Exam Narrative: Pleasant female lying in bed in no acute distress Resp Other: Decreased breath sounds with occassional basilar crackles Cardio Other: RRR nl Sl S2 2/6 INGRID GI Other: abd: soft/ non tender/ nondistended Extrem Other: no edema Objective Labs Result Diagrams: 12/22/20 04:56 12/23/20 04:55 Labs: Laboratory Results - last 24 hr 12/23/20 04:55 Sodium 143 Potassium 4.4 Chloride 105 Carbon Dioxide 30 BUN 53 H Creatinine 1.45 H Estimated GFR 35.7 L BUN/Creatinine Ratio 36.6 H Glucose 113 H Calcium 9.1 Total Bilirubin 0.5 AST 24 ALT 37 H Alkaline Phosphatase 84 Troponin I 0.108 H Total Protein 7.2 Albumin 3.1 L Globulin 4.1 Albumin/Globulin Ratio 0.8 L PFSH Medical History Atrial fibrillation Congestive heart failure CVA (cerebral vascular accident) History of CVA with residual deficit HLD (hyperlipidemia) Surgical History Hx of cholecystectomy Social History household members: family Smoking Status: Former smoker alcohol intake: current Assessment & Plan Assessment & Plan narrative: 1. 70-year-old female admitted to the hospital with AFib RVR. -patient was DC cardioverted in the emergency room. Is now in sinus rhythm -patient has no chest pain -will continue amiodarone loading, she will take 400 mg twice daily for 7 days, 200 mg twice daily for 7 days, then 200 mg daily -Cardizem on hold given her heart rate is 54 -she is on Xarelto which has been adjusted for her creatinine clearance at 50 mg daily 2. Acute congestive heart failure -likely related to diastolic dysfunction -she remains short of breath and mildly hypoxic -will continue b.i.d. Lasix 3. Acute kidney injury Creatinine 1.78 on admission, improved to 1.45 today 4. Elevated LFTs -likely related to passive congestion 5. Type 2 myocardial infarction -patient with no acute ST changes, and no chest pain troponins improving -troponin 0.108 today 6. Hyperlipidemia -continue statin Disposition, anticipate discharge home tomorrow Time Spent With Patient Critical Care time: I spent a total of [] minutes of critical care time on this patient's care today; this time is exclusive of procedural time.
[2020-12-24] VITALS (8 sets, daily range): BP systolic 114–129; BP diastolic 52–73; PULSE 66–91; RESP 16–18; TEMP 35.8–36.6; O2SAT 93–95
[2020-12-24 05:14] LABS: Add Manual Diff / Slide Review NO; Basophils Absolute Auto 100 /uL (0-100); Basophils Percent Auto 0.5 % (0-2); Eosinophils Absolute Auto 100 /uL (0-450); Eosinophils Percent Auto 0.6 % (2-4); Hematocrit 32.7 % (36-46); Lymphocytes Absolute Auto 2700 /uL (1100-4500); Lymphocytes Percent Auto 26.9 % (25-40); Mean Corpuscular HGB Conc 33.6 % (30-36); Mean Corpuscular Hemoglobin 31.5 PG (26-34); Mean Corpuscular Volume 93.8 fL (80-100); Monocytes Absolute Auto 900 /uL (0-900); Monocytes Percent Auto 9.3 % (3-14); Neutrophils Absolute Auto 6400 /uL (1500-7000); Neutrophils Percent Auto 62.7 % (50-75); Platelet Count 380 X10^3/uL (150-400); Red Blood Cell Count 3.49 X10^6/uL (4.0-5.2); Red Cell Distribution Width 14.9 % (11.6-14.8); White Blood Cell Count 10.2 X10^3/uL (4.5-11.0)
[2020-12-24 05:17] LABS: BUN Creatinine Ratio 35.3 (6-22); Blood Urea Nitrogen 54 mg/dL (7-17); Calcium 8.8 mg/dL (8.4-10.2); Carbon Dioxide 28 mmol/L (22-32); Chloride 102 mmol/L (98-107); Estimated Glomerular Filt Rate 33.6 mL/min (>60); Glucose 79 mg/dL (80-110); HEMOLYSIS < 15 (0-50); Potassium 3.8 mmol/L (3.4-5.1); Sodium 141 mmol/L (137-145)
[2020-12-24] MEDS: AMIODARONE 200 MG TABLET 400 MG PO ×2 (08:26→16:28)
[2020-12-24] MEDS: CHOLECALCIFEROL (VITAMIN D3) 5,000 UNIT TABLET 5000 UNIT PO (08:54)
[2020-12-24] MEDS: ACETAMINOPHEN 325 MG TABLET 650 MG PO (08:54)
[2020-12-24] MEDS: SODIUM CHLORIDE 0.9% FLUSH 10 ML IV ×2 (08:54→22:56)
[2020-12-24] MEDS: FOLIC ACID 1 MG TABLET PO (08:54)
[2020-12-24] MEDS: LORATADINE 10 MG TABLET PO (08:54)
[2020-12-24] MEDS: DIVALPROEX DR 250 MG TABLET 500 MG PO ×3 (08:54→20:51)
[2020-12-24] MEDS: DOCUSATE 100 MG CAPSULE PO ×2 (08:54→20:51)
[2020-12-24] MEDS: SERTRALINE 50 MG TABLET PO (08:55)
[2020-12-24] MEDS: METOPROLOL ER 50 MG TABLET PO (08:55)
[2020-12-24] MEDS: RIVAROXABAN 10 MG TABLET 15 MG PO (08:55)
[2020-12-24] MEDS: NIACIN 500 MG TAB ER 1000 MG PO ×2 (08:55→20:51)
--- NOTE | 2020-12-24 11:35 | PT.IIE ---
Current Diagnoses Other persistent atrial fibrillation (12/21/20) Medical History (Last Reviewed 12/21/20 @ 19:22 by Sharee Dubon MD) Atrial fibrillation Congestive heart failure CVA (cerebral vascular accident) History of CVA with residual deficit HLD (hyperlipidemia) Physical Therapy Inpatient Evaluation/Re-Eval M1 PT/OT-IP Prior Functional Status Start: 12/24/20 13:01 Freq: NEEDED Status: Active Protocol: Document 12/24/20 11:35 AB (Rec: 12/24/20 13:16 AB [id number]) Medical Review Prior Functional Status Medical History Reviewed Yes Communication able to make needs known Mobility and Gait pt stated that she is able to do bed mobility mod I and stand pivot transfer from bed <>w/c; w/c <>toilet but needs assist with w/c<> recliner; pt stated that she has not ambulated since she had a stroke in 2006 Activities of Daily Living and IADL's pt stated that she is able to take care of her toileting needs by herself but her daughter assists her with showers and dressing Social History Household Members family Living Arrangements House Number of Floors (Floors) Two Floors Number of Stairs To Enter/Railing? pt stays on main level of the house and has a ramp to enter; family pushes her with her w/ c to get in/out through the ramp Home Environment Standard Height Toilet,Walk in Shower,Ramp Home Equipment Manual Wheelchair,Grab Bars Near Toilet,Grab Bars In Shower Additional Social History Comment pt stated that she has a rolling shower chair where she transfers into and her daughter wheels her into the shower and assists her with showers and dressing. M2 PT-IP Current Condition Start: 12/24/20 13:01 Freq: NEEDED Status: Active Protocol: Document 12/24/20 11:35 AB (Rec: 12/24/20 13:16 AB [email or web address]) Physical Therapy Current Condition Current Condition Evaluation Date 12/24/20 Treatment Diagnosis A-fib; h/o R CVA L lety; generalized weakness Onset Date 12/21/20 M3 PT-IP Subjective Start: 12/24/20 13:01 Freq: NEEDED Status: Active Protocol: Document 12/24/20 11:35 AB (Rec: 12/24/20 13:16 AB [email or web address]) Subjective Physical Therapy Visit Type Type Initial Evaluation Visit Start Time 11:35 Visit Stop Time 12:07 Total Visit Minutes 32 Number of NUMERICAL CONTROL ROUTER OPERATOR Visits 0 Physical Therapy Visit Comments Patient Comments agreeable to do PT Therapy Pain Assessment Pain Present Pain Present Denied Pain M4 PT-IP Mobility and Gait Start: 12/24/20 13:01 Freq: NEEDED Status: Active Protocol: Document 12/24/20 11:35 AB (Rec: 12/24/20 13:16 AB [email or web address]) PT-Bed Mobility Assessment Supine to Sit Supine to Sit Moderate Assistance,Head of Bed Elevated Scooting Scooting to Edge of Bed Maximum Assistance PT-Transfer Assessment Sit to and From Stand Sit to and from Stand Total Assistance,2 Person Assistance,Use of Upper Extremities Equipment Transfer Assistive Device Gait Belt Orthotic/Prosthetic Devices or Brace: No Transfers Transfer Destination Chair Transfer Technique Squat Pivot Transfer Ability Level of Assist Total Assistance,2 Person Assistance,Use of Upper Extremities Comments Mobility Comments pt completed supine to sit mod A and max cues with HOB elevated. pt sat on EOB min A and cues. attempted to stand pivot transfer to chair without AD x 3 but pt unable. increase posterior trunk leaning with each attempt and pt stated that she is afraid of falling. attempted squat pivot transfer x2 with PT in front of pt to assist and block LE and NAC behind pt . pt required total A x 2 and max cues with increase guarding and resistance and pt with increase posterior trunk pushing. positioned pt on chair. call light and table placed within reach. informed NAC that pt is a mechanicial lift transfer for nursing care . PT-Balance Assessment Sitting Balance and Reactions Static Sitting Balance Ability Fair Dynamic Sitting Balance Ability Poor Standing Balance and Reactions Static Standing Balance Ability Poor Dynamic Standing Balance Ability Poor M5 PT-IP Objective Assessments Start: 12/24/20 13:01 Freq: NEEDED Status: Active Protocol: Document 12/24/20 11:35 AB (Rec: 12/24/20 13:16 AB [email or web address]) Orientation Orientation/Cognition Level of Alertness Confusional State Orientation Name Language Function Ability Hard of Hearing Safety Awareness Decreased Safety Awareness Memory Description Short Term Impaired Gross Range of Motion Lower Extremity ROM Assessment Left Impaired Impairments L knee flexion: ~ 30 deg only with hard end feel and (+) crepitus towards end of range L ankle in PF of Strength Lower Extremity Strength Assessment Left Impaired Hip 2-/5 Knee 1/5 Ankle 0/5 M6 PT-IP Treatment Start: 12/24/20 13:01 Freq: NEEDED Status: Active Protocol: Document 12/24/20 11:35 AB (Rec: 12/24/20 13:16 AB [email or web address]) Physical Therapy Treatment Education Education Provided Safety M7 PT-IP Assessment and Plan Start: 12/24/20 13:01 Freq: NEEDED Status: Active Protocol: Document 12/24/20 11:35 AB (Rec: 12/24/20 13:16 AB [email or web address]) PT Summary Assessment and Plan Potential Rehabilitation Potential Fair Status of Condition at Evaluation Evolving Summary Impairments Pain,ROM,Strength,Balance, Coordination,Sensation,Tone, Cognition,Bed Mobility, Transfers,Gait,Activity Tolerance Assessment Summary pt requiring total A x 2 with mobility and will be a mechanical lift transfer with nurses at this time. pt will require SNF rehab to improve strength and mobility. Goals Bed Mobility Goal Standby Assistance Transfer Goal Moderate Assistance Frequency of Treatment Frequency Of Treatment Once a Day Treatment Plan Physical Therapy Treatment Plan Bed Mobility Training,Transfer Training,Gait Training, Therapeutic Exercise,Balance Retraining,Discharge Planning, Hot or Cold Pack,Neuromuscular Re-ed,Coordination Retraining ,Manual Therapy Precautions Other Precautions falls Recommendations To Nursing Amount of Assist Needed Mechanical Lift Discharge Recommendations PT Discharge Recommendations SNF Rehab Transportation Needs at Discharge Wheelchair/Cabulance
[2020-12-24] MEDS: FUROSEMIDE 40 MG/4 ML VIAL IV (12:44)
[2020-12-24] MEDS: BISACODYL 10 MG SUPP PR (13:12)
--- NOTE | 2020-12-24 13:13 | PC.NURSE ---
Patient up to bsc with clifford and 2 person assist. Noted patient appeared flushed across face, chest and down RUE, patient reports she feels warm, denies itching, SOB, 95% on RA. MD made aware. Tele intact, SCD's back on bilaterally. Suppository administered per patient request. Call light in reach.
--- NOTE | 2020-12-24 17:20 | P.PN_ITS ---
Subjective Subjective Date Patient Seen: 12/24/20 Time Patient Seen: 11:00 Interval history: The patient is a 70 y/o female admitted for afib and congestive heart failure. She reports her breathing has improved but she is still short of breath. She denies chest pain and reports no chest pain prior to or during admission. Exam Vital Signs (past 8 hours): - 12/24/20 10:15 12/24/20 11:30 12/24/20 12:00 Temperature 97.6 F Pulse Rate 82 82 Respiratory Rate 17 Blood Pressure 115/58 L 115/58 L Pulse Oximetry 94 93 12/24/20 15:51 Temperature 96.4 F L Pulse Rate 68 Respiratory Rate 16 Blood Pressure 129/65 Pulse Oximetry 94 Oxygen Delivery Method Room Air Oxygen Flow Rate 0 Narrative Exam Narrative: Pleasant female lying in bed in no acute distress Resp Other:?Decreased breath sounds with bibasilar crackles, no wheezing. Cardio Other:?RRR nl Sl S2 2/6 INGRID GI Other:?abd: soft/ non tender/ nondistended Extrem Other:?no edema Objective Labs Result Diagrams: 12/24/20 04:57 12/24/20 04:57 Labs: Laboratory Results - last 24 hr 12/24/20 12/24/20 04:57 04:57 WBC 10.2 RBC 3.49 L Hgb 11.0 L Hct 32.7 L MCV 93.8 MCH 31.5 MCHC 33.6 RDW 14.9 H Plt Count 380 Neut % (Auto) 62.7 Lymph % (Auto) 26.9 Republic % (Auto) 9.3 Eos % (Auto) 0.6 L Baso % (Auto) 0.5 Neut # (Auto) 6400 Lymph # (Auto) 2700 Republic # (Auto) 900 Eos # (Auto) 100 Baso # (Auto) 100 Sodium 141 Potassium 3.8 Chloride 102 Carbon Dioxide 28 BUN 54 H Creatinine 1.53 H Estimated GFR 33.6 L BUN/Creatinine Ratio 35.3 H Glucose 79 L Calcium 8.8 PFSH Medical History Atrial fibrillation Congestive heart failure CVA (cerebral vascular accident) History of CVA with residual deficit HLD (hyperlipidemia) Surgical History Hx of cholecystectomy Social History household members: family Smoking Status: Former smoker alcohol intake: current Assessment & Plan Assessment & Plan narrative: ?1. 70-year-old female admitted to the hospital with AFib RVR. -patient was DC cardioverted in the emergency room.? Is now in sinus rhythm -patient has no chest pain -will continue amiodarone loading, she will take 400 mg twice daily for 7 days, 200 mg twice daily for 7 days, then 200 mg daily -Cardizem on hold given her heart rate is controlled and was in the 50s previously. -she is on Xarelto which has been adjusted for her creatinine clearance at 50 mg daily 2. Acute diastolic congestive heart failure -she remains short of breath today, no longer hypoxic. -will continue b.i.d. Lasix -probable discharge home tomorrow 3. Acute kidney injury on probable CKD III Creatinine 1.78 on admission, improved slightly to 1.4-1.5. continue to monitor 4. Elevated LFTs -likely related to passive congestion 5. Type 2 myocardial infarction -patient with no acute ST changes, and no chest pain troponins improving, likely in setting of demand from congestive heart failure. 6. Hyperlipidemia -continue statin 7. acute respiratory failure with hypoxia, resolved. - secondary to problem 2 above. Disposition, anticipate discharge home tomorrow. Obtain PT eval today. Time Spent With Patient Critical Care time: I spent a total of [] minutes of critical care time on this patient's care today; this time is exclusive of procedural time.
[2020-12-24] MEDS: SENNOSIDES 8.6 MG TABLET 17.2 MG PO (20:50)
[2020-12-25] VITALS (10 sets, daily range): BP systolic 110–127; BP diastolic 56–88; PULSE 58–68; RESP 14–16; TEMP 35.7–36.4; O2SAT 92–93
[2020-12-25] MEDS: ACETAMINOPHEN 325 MG TABLET 650 MG PO ×2 (00:38→19:21)
[2020-12-25] MEDS: FUROSEMIDE 40 MG/4 ML VIAL IV ×3 (00:38→23:45)
[2020-12-25] MEDS: SODIUM CHLORIDE 0.9% FLUSH 10 ML IV ×4 (00:38→23:45)
[2020-12-25] MEDS: METOPROLOL ER 50 MG TABLET PO (09:20)
[2020-12-25] MEDS: DOCUSATE 100 MG CAPSULE PO ×2 (09:20→21:02)
[2020-12-25] MEDS: SERTRALINE 50 MG TABLET PO (09:20)
[2020-12-25] MEDS: AMIODARONE 200 MG TABLET 400 MG PO ×2 (09:20→16:03)
[2020-12-25] MEDS: FOLIC ACID 1 MG TABLET PO (09:21)
[2020-12-25] MEDS: LORATADINE 10 MG TABLET PO (09:21)
[2020-12-25] MEDS: RIVAROXABAN 10 MG TABLET 15 MG PO (09:21)
[2020-12-25] MEDS: DIVALPROEX DR 250 MG TABLET 500 MG PO ×3 (09:28→21:02)
[2020-12-25] MEDS: ONDANSETRON 4 MG/2 ML INJ IV ×2 (09:28→23:45)
[2020-12-25] MEDS: CHOLECALCIFEROL (VITAMIN D3) 5,000 UNIT TABLET 5000 UNIT PO (09:28)
[2020-12-25] MEDS: NIACIN 500 MG TAB ER 1000 MG PO ×2 (09:29→21:02)
--- NOTE | 2020-12-25 11:59 | PT-IP ANOTE ---
checked on pt and pt refused PT. stated that she just moved in bed with the nurse's help and does not want to get out of the bed. pt stated that she might get up for dinner. will check on pt in the afternoon
--- NOTE | 2020-12-25 14:30 | PT.IPTN ---
Current Diagnoses Other persistent atrial fibrillation (12/21/20) Physical Therapy Treatment Note M2 PT-IP Current Condition Start: 12/24/20 13:01 Freq: NEEDED Status: Active Protocol: Document 12/24/20 11:35 AB (Rec: 12/24/20 13:16 AB [email or web address]) Physical Therapy Current Condition Current Condition Evaluation Date 12/24/20 Treatment Diagnosis A-fib; h/o R CVA L lety; generalized weakness Onset Date 12/21/20 M3 PT-IP Subjective Start: 12/24/20 13:01 Freq: NEEDED Status: Active Protocol: Document 12/25/20 14:30 AB (Rec: 12/25/20 15:49 AB [id number]) Subjective Physical Therapy Visit Type Type Treatment Note Visit Start Time 14:30 Visit Stop Time 14:55 Total Visit Minutes 25 Number of JAVASCRIPT UI DEVELOPER Visits 0 Physical Therapy Visit Comments Patient Comments pt refusing to get out of the bed but agreed to sit on EOB M4 PT-IP Mobility and Gait Start: 12/24/20 13:01 Freq: NEEDED Status: Active Protocol: Document 12/25/20 14:30 AB (Rec: 12/25/20 15:49 AB [id number]) PT-Bed Mobility Assessment Supine to Sit Supine to Sit Maximum Assistance,1 Person Assistance,2 Person Assistance ,Head of Bed Elevated Sit to Supine Sit to Supine Maximum Assistance,1 Person Assistance,2 Person Assistance ,Head of Bed Elevated Scooting Scooting to Edge of Bed Dependent PT-Transfer Assessment Comments Mobility Comments pt refusing to get out of the bed but agreed to sit on EOB. Stated that she is just tired . completed supine to sit max A x 1-2 and max cues with HOB elevated. Total A for scooting and positioning on EOB. pt requiring min to mod A for sitting balance on EOB. pt tolerated ~ 5 min of sitting on EOB and requested to lay back. completed sit to supine max A x 1-2 and max cues. required max A for BLE elevation to bed. total A x 2 for repositioning in bed. Pt then requested to use the toilet. Nurse assisted with bedpan placement and PT assisted pt with rolling requiring max A with use of side rail. pt positioned again in bed. call light and table placed within reach. M5 PT-IP Objective Assessments Start: 12/24/20 13:01 Freq: NEEDED Status: Active Protocol: Document 12/24/20 11:35 AB (Rec: 12/24/20 13:16 AB [id number]) Orientation Orientation/Cognition Level of Alertness Confusional State Orientation Name Language Function Ability Hard of Hearing Safety Awareness Decreased Safety Awareness Memory Description Short Term Impaired Gross Range of Motion Lower Extremity ROM Assessment Left Impaired Impairments L knee flexion: ~ 30 deg only with hard end feel and (+) crepitus towards end of range L ankle in PF of Strength Lower Extremity Strength Assessment Left Impaired Hip 2-/5 Knee 1/5 Ankle 0/5 M6 PT-IP Treatment Start: 12/24/20 13:01 Freq: NEEDED Status: Active Protocol: Document 12/25/20 14:30 AB (Rec: 12/25/20 15:49 AB [id number]) Physical Therapy Treatment Education Education Provided Safety M7 PT-IP Assessment and Plan Start: 12/24/20 13:01 Freq: NEEDED Status: Active Protocol: Document 12/25/20 14:30 AB (Rec: 12/25/20 15:49 AB [id number]) PT Summary Assessment and Plan Potential Rehabilitation Potential Fair Summary Impairments Pain,ROM,Strength,Balance, Coordination,Sensation,Tone, Cognition,Bed Mobility, Transfers,Gait,Activity Tolerance Progress Towards Goals Slow Progress due to Medical Issues,Slow Progress due to Activity Tolerance,Slow Progress - Other Assessment Summary pt stated that she is tired today and unable to do much activity. continues to require max A x 1-2 with bed mobility and min to mod A for sitting balance on EOB. Pt will require SNF rehab to improve strength and mobility. Goals Bed Mobility Goal Standby Assistance Transfer Goal Moderate Assistance Other Goals improve transfer to [facility] Frequency of Treatment Frequency Of Treatment Once a Day Treatment Plan Physical Therapy Treatment Plan Bed Mobility Training,Transfer Training,Gait Training, Therapeutic Exercise,Balance Retraining,Discharge Planning, Hot or Cold Pack,Neuromuscular Re-ed,Coordination Retraining ,Manual Therapy Precautions Other Precautions falls Recommendations To Nursing Amount of Assist Needed Mechanical Lift Discharge Recommendations PT Discharge Recommendations SNF Rehab Transportation Needs at Discharge Wheelchair/Cabulance
--- NOTE | 2020-12-25 14:38 | PM.PN.1 ---
Subjective Subjective Date Patient Seen: 12/25/20 Time Patient Seen: 14:38 Interval history: The patient is a 70 y/o female admitted for afib and congestive heart failure. She reports her breathing has improved today and is improved. She denies chest pain and reports no chest pain prior to or during admission. She is weak however, and recommended for SNF by PT. Exam Vital Signs (past 8 hours): - 12/25/20 07:23 12/25/20 08:35 12/25/20 09:20 Temperature 96.9 F L Pulse Rate 66 66 Respiratory Rate 14 Blood Pressure 127/62 127/62 Pulse Oximetry 93 93 12/25/20 11:23 Temperature 97.6 F Pulse Rate 68 Respiratory Rate 16 Blood Pressure 123/68 Pulse Oximetry 93 Oxygen Delivery Method Room Air Oxygen Flow Rate 0 Narrative Exam Narrative: Pleasant female lying in bed in no acute distress Resp Other:?Decreased breath sounds with bibasilar crackles, no wheezing. Cardio Other:?RRR nl Sl S2 2/6 INGRID GI Other:?abd: soft/ non tender/ nondistended Extrem Other:?no edema Objective Labs Result Diagrams: 12/24/20 04:57 12/24/20 04:57 [facility] Medical History Atrial fibrillation Congestive heart failure CVA (cerebral vascular accident) History of CVA with residual deficit HLD (hyperlipidemia) Surgical History Hx of cholecystectomy Social History household members: family Smoking Status: Former smoker alcohol intake: current Assessment & Plan Assessment & Plan narrative: 1. 70-year-old female admitted to the hospital with AFib RVR. -patient was DC cardioverted in the emergency room.? Is now in sinus rhythm -patient has no chest pain -will continue amiodarone loading, she will take 400 mg twice daily for 7 days, 200 mg twice daily for 7 days, then 200 mg daily -Cardizem on hold given her heart rate is controlled and was in the 50s previously. -she is on Xarelto which has been adjusted for her creatinine clearance at 50 mg daily 2. Acute diastolic congestive heart failure -she remains short of breath today though much improved, no longer hypoxic. -will continue b.i.d. Lasix -change to PO therapy tomorrow. 3. Acute kidney injury on probable CKD III Creatinine 1.78 on admission, improved slightly to 1.4-1.5. continue to monitor 4. Elevated LFTs -likely related to passive congestion 5. Type 2 myocardial infarction -patient with no acute ST changes, and no chest pain troponins improving, likely in setting of demand from congestive heart failure. 6. Hyperlipidemia -continue statin 7. acute respiratory failure with hypoxia, resolved. ?- secondary to problem 2 above. 8. history of CVA - baseline uses wheelchair, however much weaker than baseline currently due to above problems. - attempt SNF placement. Disposition, stable for transfer to SNF, pending bed. Time Spent With Patient Critical Care time: I spent a total of [] minutes of critical care time on this patient's care today; this time is exclusive of procedural time.
[2020-12-25] MEDS: SENNOSIDES 8.6 MG TABLET 17.2 MG PO (21:02)
[2020-12-26] VITALS (8 sets, daily range): BP systolic 117–144; BP diastolic 53–76; PULSE 55–84; RESP 16–18; TEMP 35.6–36.8; O2SAT 92–96
[2020-12-26 05:51] LABS: Albumin 3.1 g/dL (3.5-5.0); Albumin Globulin Ratio 0.8 (1.0-2.8); Alkaline Phosphatase 126 U/L (38-126); BUN Creatinine Ratio 31.8 (6-22); Bilirubin Total 0.7 mg/dL (0.2-1.3); Blood Urea Nitrogen 61 mg/dL (7-17); Calcium 8.6 mg/dL (8.4-10.2); Carbon Dioxide 36 mmol/L (22-32); Chloride 95 mmol/L (98-107); Estimated Glomerular Filt Rate 25.8 mL/min (>60); Globulin 4.1 g/dL (1.7-4.1); Glucose 103 mg/dL (80-110); HEMOLYSIS < 15 (0-50); Potassium 3.6 mmol/L (3.4-5.1); Sodium 137 mmol/L (137-145); Total Protein 7.2 g/dL (6.3-8.2)
[2020-12-26 06:16] LABS: Alanine Aminotransferase 926 IU/L (<35); Aspartate Aminotransferase 1222 IU/L (14-36)
--- NOTE | 2020-12-26 08:08 | DI.US.S_ITS ---
PROCEDURE: US ABDOMEN LIMITED INDICATIONS: RUQ VERY HIGH LIVER ENZYMES TECHNIQUE: Real-time scanning was performed of the abdominal and retroperitoneal organs, with image documentation. COMPARISON: None. FINDINGS: Liver: The liver demonstrates mild prominence of the periportal fat and is slightly heterogeneous appearance. Liver capsule is smooth. There is minimal intrahepatic ductal dilation. Gallbladder: Surgically absent. Biliary ducts: Intrahepatic bile ducts are non-dilated. Extrahepatic bile duct caliber measures 7 mm. Normal is 6-7 mm or less in diameter, or 10 mm or less post-cholecystectomy. Pancreas: Visualized portions of the pancreas are sonographically normal. Miscellaneous: No free abdominal fluid. IMPRESSION: Imaging findings concerning for hepatitis in the correct clinical setting. Slightly prominent intrahepatic ducts likely within normal limits given surgical status of cholecystectomy. Recommend correlation for lab values of obstruction. Dictated by: Demetrio Rivera D.O. on 12/26/2020 at 10:11 Approved by: Demetrio Rivera D.O. on 12/26/2020 at 10:13
[2020-12-26] MEDS: CHOLECALCIFEROL (VITAMIN D3) 5,000 UNIT TABLET 5000 UNIT PO (09:18)
[2020-12-26] MEDS: DOCUSATE 100 MG CAPSULE PO ×2 (09:18→20:58)
[2020-12-26] MEDS: METOPROLOL ER 50 MG TABLET PO (09:18)
[2020-12-26] MEDS: DIVALPROEX DR 250 MG TABLET 500 MG PO ×3 (09:18→20:58)
[2020-12-26] MEDS: RIVAROXABAN 10 MG TABLET 15 MG PO (09:18)
[2020-12-26] MEDS: ONDANSETRON 4 MG/2 ML INJ IV (09:18)
[2020-12-26] MEDS: LORATADINE 10 MG TABLET PO (09:18)
[2020-12-26] MEDS: SERTRALINE 50 MG TABLET PO (09:19)
[2020-12-26] MEDS: SODIUM CHLORIDE 0.9% FLUSH 10 ML IV ×2 (09:19→20:59)
[2020-12-26] MEDS: FOLIC ACID 1 MG TABLET PO (09:19)
[2020-12-26] MEDS: NIACIN 500 MG TAB ER 1000 MG PO ×2 (09:20→20:58)
[2020-12-26] MEDS: BISACODYL 10 MG SUPP PR (09:22)
--- NOTE | 2020-12-26 11:38 | CM.DPC ---
DCP SNF planning Per MD, pt not medically stable today and labs were not normal but pt could benefit from SNF at d/c as below baseline. Per PT, recommending SNF as pt currently not at her baseline of being independent with ADLs or self transfers and requiring clifford for nursing staff. RYNE met bedside with pt and explained role and discussed SNF and provided SNF Choice list and pt confirms that she is agreeable to SNF and has been to SNF once before but it was in [place]. SW discussed need to find [employer] Contracted SNF and get auth and find available bed and pt would be agreeable to referrals to [facility], [facility], and [facility] if they accept [employer]. SW called [facility] and discussed pt status and they are willing to review and agree that OT likely needed for auth and SW ordered OT but not available until tomorrow. SW faxed clinicals to review. SW also faxed [facility] as pt lives in [place] and left [facility] requesting review. PASRR completed. Pt states she will call and update her Dtr on attempts at SNF for d/c. Plan: SW to follow closely for [facility] and [facility] review to determine if they can accept and begin [employer] insurance auth for SNF prior to safe return home with Dtr. Isabel Thorpe, BOOM SUPERVISOR
--- NOTE | 2020-12-26 12:23 | P.PN_ITS ---
Subjective Subjective Date Patient Seen: 12/26/20 Time Patient Seen: 12:23 Interval history: Today she has some mild nausea, no abdominal pain, leg swelling. Her shortness of breath is much improved. She remains much weaker than usual. Exam Vital Signs (past 8 hours): - 12/26/20 08:00 12/26/20 09:18 Temperature 98.1 F Pulse Rate 84 Respiratory Rate 18 Blood Pressure 144/68 H 144/68 H Pulse Oximetry 95 Oxygen Delivery Method Room Air Oxygen Flow Rate 0 Narrative Exam Narrative: Pleasant female lying in bed in no acute distress Resp Other:?Decreased breath sounds with bibasilar crackles, no wheezing. Cardio Other:?RRR nl Sl S2 2/6 INGRID GI Other:?abd: soft/ non tender/ nondistended. No HSM. Extrem Other: trace bilateral edema, no joint effusions. Objective Labs Result Diagrams: 12/24/20 04:57 12/26/20 05:01 Labs: Laboratory Results - last 24 hr 12/26/20 05:01 Sodium 137 Potassium 3.6 Chloride 95 L Carbon Dioxide 36 H BUN 61 H Creatinine 1.92 H Estimated GFR 25.8 L BUN/Creatinine Ratio 31.8 H Glucose 103 Calcium 8.6 Total Bilirubin 0.7 AST 1222 H ALT 926 H Alkaline Phosphatase 126 Total Protein 7.2 Albumin 3.1 L Globulin 4.1 Albumin/Globulin Ratio 0.8 L PFSH Medical History Atrial fibrillation Congestive heart failure CVA (cerebral vascular accident) History of CVA with residual deficit HLD (hyperlipidemia) Surgical History Hx of cholecystectomy Social History household members: family Smoking Status: Former smoker alcohol intake: current Assessment & Plan Assessment & Plan narrative: 1. 70-year-old female admitted to the hospital with AFib RVR, presumably paroxysmal in nature. -patient was DC cardioverted in the emergency room.? Is now in sinus rhythm -patient has no chest pain -initially on amiodarone. Given severe liver enzyme elevations today will discontinue. -Cardizem on hold given her heart rate is controlled and was in the 50s previously. -she is on Xarelto which has been adjusted for her creatinine clearance 2. Acute diastolic congestive heart failure -she remains short of breath today though much improved, no longer hypoxic. -stop lasix given LFT elevations 3. Acute kidney injury on probable CKD III Creatinine 1.78 on admission, improved slightly to 1.4-1.5. again nageles to 1.92 probably from over diuresis. 4. Elevated LFTs -likely related to passive congestion on admission. Were stable but now around 1000 AST and ALT. acute rise may be related to amiodarone, possibly over diuresis though patient not hypotensive. -will hold amidoarone and lasix. 5. Type 2 myocardial infarction -patient with no acute ST changes, and no chest pain troponins improved, likely in setting of demand from congestive heart failure. 6. Hyperlipidemia -continue statin 7. acute respiratory failure with hypoxia, resolved. ?- secondary to problem 2 above. 8. history of CVA ?- baseline uses wheelchair, however much weaker than baseline currently due to above problems. ?- continue PT /OT Disposition: likely discharge in 2 days if LFTs improving. Time Spent With Patient Critical Care time: I spent a total of [] minutes of critical care time on this patient's care today; this time is exclusive of procedural time.
--- NOTE | 2020-12-26 14:26 | PT.IPTN ---
Current Diagnoses Other persistent atrial fibrillation (12/21/20) Physical Therapy Treatment Note M2 PT-IP Current Condition Start: 12/24/20 13:01 Freq: NEEDED Status: Active Protocol: Document 12/24/20 11:35 AB (Rec: 12/24/20 13:16 AB [email or web address]) Physical Therapy Current Condition Current Condition Evaluation Date 12/24/20 Treatment Diagnosis A-fib; h/o R CVA L lety; generalized weakness Onset Date 12/21/20 M3 PT-IP Subjective Start: 12/24/20 13:01 Freq: NEEDED Status: Active Protocol: Document 12/26/20 14:12 LJ (Rec: 12/26/20 14:26 LJ [id number]) Subjective Physical Therapy Visit Type Type Treatment Note Visit Start Time 13:50 Visit Stop Time 14:08 Total Visit Minutes 18 Number of REGISTRAR ASSISTANT Visits 1 Physical Therapy Visit Comments Patient Comments Pt getting cleaned up by nursing. Agreed to sit EOB M4 PT-IP Mobility and Gait Start: 12/24/20 13:01 Freq: NEEDED Status: Active Protocol: Document 12/26/20 14:12 LJ (Rec: 12/26/20 14:26 LJ [id number]) PT-Bed Mobility Assessment Supine to Sit Supine to Sit Minimal Assistance,2 Person Assistance,Head of Bed Elevated,Bedrails Sit to Supine Sit to Supine Minimal Assistance,2 Person Assistance,Head of Bed Elevated,Bedrails Scooting Scooting to Edge of Bed Dependent PT-Transfer Assessment Comments Mobility Comments pt refusing to get out of bed but agreed to sit on edge of bed. Pt requiring less assist this session. Able to use bed rail to perform modified supine to supported sitting ModA x2 for assist with LEs and LUE. ModA for scooting to EOB. Pt sat for 5 minutes. Able to sit with CGA while holding onto bed rail with RUE . Requested to lay down after sitting unsupported for ~1 min . Pt required ModA x2 for sit> supine. Dependent for scooting to head of bed. Pt left in room with SPEECH INSTRUCTOR. M5 PT-IP Objective Assessments Start: 12/24/20 13:01 Freq: NEEDED Status: Active Protocol: Document 12/24/20 11:35 AB (Rec: 12/24/20 13:16 AB [id number]) Orientation Orientation/Cognition Level of Alertness Confusional State Orientation Name Language Function Ability Hard of Hearing Safety Awareness Decreased Safety Awareness Memory Description Short Term Impaired Gross Range of Motion Lower Extremity ROM Assessment Left Impaired Impairments L knee flexion: ~ 30 deg only with hard end feel and (+) crepitus towards end of range L ankle in PF of Strength Lower Extremity Strength Assessment Left Impaired Hip 2-/5 Knee 1/5 Ankle 0/5 M6 PT-IP Treatment Start: 12/24/20 13:01 Freq: NEEDED Status: Active Protocol: Document 12/26/20 14:12 (Rec: 12/26/20 14:26 [id number]) Physical Therapy Treatment Education Education Provided Safety M7 PT-IP Assessment and Plan Start: 12/24/20 13:01 Freq: NEEDED Status: Active Protocol: Document 12/26/20 14:12 (Rec: 12/26/20 14:26 [id number]) PT Summary Assessment and Plan Potential Rehabilitation Potential Fair Summary Impairments Pain,ROM,Strength,Balance, Coordination,Sensation,Tone, Cognition,Bed Mobility, Transfers,Gait,Activity Tolerance Progress Towards Goals Slow Progress due to Medical Issues,Slow Progress due to Activity Tolerance,Slow Progress - Other Assessment Summary Pt still requiring Rayne-ModA 1 -2 for bed mobility. Able to tolerate sitting on EOB with less assist. She will require SNF rehab to improve strength and functional activities. Goals Bed Mobility Goal Standby Assistance Transfer Goal Moderate Assistance Other Goals improve transfer to [facility] Frequency of Treatment Frequency Of Treatment Once a Day Treatment Plan Physical Therapy Treatment Plan Bed Mobility Training,Transfer Training,Gait Training, Therapeutic Exercise,Balance Retraining,Discharge Planning, Hot or Cold Pack,Neuromuscular Re-ed,Coordination Retraining ,Manual Therapy Precautions Other Precautions falls Recommendations To Nursing Amount of Assist Needed Mechanical Lift Discharge Recommendations PT Discharge Recommendations SNF Rehab
[2020-12-26] MEDS: ACETAMINOPHEN 325 MG TABLET 650 MG PO (20:58)
[2020-12-26] MEDS: SENNOSIDES 8.6 MG TABLET 17.2 MG PO (20:58)
[2020-12-27] VITALS (9 sets, daily range): BP systolic 125–155; BP diastolic 59–70; PULSE 55–80; RESP 14–18; TEMP 36–37; O2SAT 92–95
[2020-12-27 06:13] LABS: Alanine Aminotransferase 667 IU/L (<35); Albumin 3.1 g/dL (3.5-5.0); Albumin Globulin Ratio 0.8 (1.0-2.8); Alkaline Phosphatase 130 U/L (38-126); Aspartate Aminotransferase 470 IU/L (14-36); BUN Creatinine Ratio 30.4 (6-22); Bilirubin Total 0.6 mg/dL (0.2-1.3); Blood Urea Nitrogen 63 mg/dL (7-17); Calcium 9.2 mg/dL (8.4-10.2); Carbon Dioxide 37 mmol/L (22-32); Chloride 94 mmol/L (98-107); Estimated Glomerular Filt Rate 23.7 mL/min (>60); Globulin 4.1 g/dL (1.7-4.1); Glucose 135 mg/dL (80-110); HEMOLYSIS < 15 (0-50); Potassium 3.4 mmol/L (3.4-5.1); Sodium 138 mmol/L (137-145); Total Protein 7.2 g/dL (6.3-8.2)
[2020-12-27] MEDS: LORATADINE 10 MG TABLET PO (09:30)
[2020-12-27] MEDS: SERTRALINE 50 MG TABLET PO (09:30)
[2020-12-27] MEDS: FOLIC ACID 1 MG TABLET PO (09:30)
[2020-12-27] MEDS: DIVALPROEX DR 250 MG TABLET 500 MG PO ×3 (09:31→22:06)
[2020-12-27] MEDS: DOCUSATE 100 MG CAPSULE PO ×2 (09:31→22:01)
[2020-12-27] MEDS: RIVAROXABAN 10 MG TABLET 15 MG PO (09:31)
[2020-12-27] MEDS: SODIUM CHLORIDE 0.9% FLUSH 10 ML IV ×2 (09:40→22:02)
--- NOTE | 2020-12-27 09:42 | PT.IPTN ---
Current Diagnoses Other persistent atrial fibrillation (12/21/20) Physical Therapy Treatment Note M2 PT-IP Current Condition Start: 12/24/20 13:01 Freq: NEEDED Status: Active Protocol: Document 12/24/20 11:35 AB (Rec: 12/24/20 13:16 AB [email or web address]) Physical Therapy Current Condition Current Condition Evaluation Date 12/24/20 Treatment Diagnosis A-fib; h/o R CVA L lety; generalized weakness Onset Date 12/21/20 M3 PT-IP Subjective Start: 12/24/20 13:01 Freq: NEEDED Status: Active Protocol: Document 12/27/20 09:42 AW (Rec: 12/27/20 12:45 AW [id number]) Subjective Physical Therapy Visit Type Type Treatment Note Visit Start Time 09:25 Visit Stop Time 09:42 Total Visit Minutes 17 Notes Co-tx with OT due to pt mobility needs. Number of MOWING MACHINE OPERATOR Visits 0 Physical Therapy Visit Comments Patient Comments Pt willing to get up with therapies M4 PT-IP Mobility and Gait Start: 12/24/20 13:01 Freq: NEEDED Status: Active Protocol: Document 12/27/20 09:42 AW (Rec: 12/27/20 12:45 AW [id number]) PT-Bed Mobility Assessment Supine to Sit Supine to Sit Maximum Assistance,2 Person Assistance,Head of Bed Elevated,Bedrails Sit to Supine Sit to Supine Maximum Assistance,2 Person Assistance,Bedrails Scooting Scooting to Edge of Bed Maximum Assistance Scooting Up and Down in Bed Maximum Assistance PT-Transfer Assessment Comments Mobility Comments Pt agreed to get up to EOB, requiring max A x 2. Trunk control was poor and pt required constant assist to maintain seated balance. She stated she can typically transfer bed <> chair and attempted to demonstrate, reaching her right hand across the chair to the chair arm. She needed assist/approxmation to get her right foot situated on the floor but was unable to maintain contact independently. She attempted to stand max A x 2 but was unable. She reported dizziness was limiting her mobility. No nystagmus noted. Pt requested return to supine requiring max A x 2 for sit to supine and repositioning. Pt was left with OT for additional assessment. M5 PT-IP Objective Assessments Start: 12/24/20 13:01 Freq: NEEDED Status: Active Protocol: Document 12/24/20 11:35 AB (Rec: 12/24/20 13:16 AB [id number]) Orientation Orientation/Cognition Level of Alertness Confusional State Orientation Name Language Function Ability Hard of Hearing Safety Awareness Decreased Safety Awareness Memory Description Short Term Impaired Gross Range of Motion Lower Extremity ROM Assessment Left Impaired Impairments L knee flexion: ~ 30 deg only with hard end feel and (+) crepitus towards end of range L ankle in PF of Strength Lower Extremity Strength Assessment Left Impaired Hip 2-/5 Knee 1/5 Ankle 0/5 M6 PT-IP Treatment Start: 12/24/20 13:01 Freq: NEEDED Status: Active Protocol: Document 12/27/20 09:42 AW (Rec: 12/27/20 12:47 AW [id number]) Physical Therapy Treatment Education Education Provided Safety M7 PT-IP Assessment and Plan Start: 12/24/20 13:01 Freq: NEEDED Status: Active Protocol: Document 12/27/20 09:42 AW (Rec: 12/27/20 12:47 AW [id number]) PT Summary Assessment and Plan Summary Progress Towards Goals Slow Progress due to Medical Issues,Slow Progress due to Activity Tolerance,Slow Progress - Other Assessment Summary Pt continues to require max assist x 2 for bed mobility. She had poor sitting tolerance . She attempted to initiate transfer but was unable. Pt reported dizziness and requested return to supine. She will require SNF rehab to improve strength and functional mobility. Goals Bed Mobility Goal Standby Assistance Transfer Goal Moderate Assistance Other Goals improve transfer to [facility] Frequency of Treatment Frequency Of Treatment Once a Day Treatment Plan Physical Therapy Treatment Plan Bed Mobility Training,Transfer Training,Gait Training, Therapeutic Exercise,Balance Retraining,Discharge Planning, Hot or Cold Pack,Neuromuscular Re-ed,Coordination Retraining ,Manual Therapy Precautions Other Precautions falls Recommendations To Nursing Amount of Assist Needed 1 Person Assist Discharge Recommendations PT Discharge Recommendations SNF Rehab Transportation Needs at Discharge Wheelchair/Cabulance
--- NOTE | 2020-12-27 09:46 | OT.IP.EVAL ---
Current Diagnoses Other persistent atrial fibrillation (12/21/20) Past Medical History (Last Reviewed 12/21/20 @ 19:22 by Sharee Dubon MD) Atrial fibrillation Congestive heart failure CVA (cerebral vascular accident) History of CVA with residual deficit HLD (hyperlipidemia) Hx of cholecystectomy Surgical History (Last Reviewed 12/21/20 @ 19:22 by Sharee Dubon MD) Hx of cholecystectomy Occupational Therapy Inpatient Evaluation/Re-Eval M1 PT/OT-IP Prior Functional Status Start: 12/24/20 13:01 Freq: NEEDED Status: Active Protocol: Document 12/27/20 12:05 CGR (Rec: 12/27/20 12:26 CGR [id number]) Medical Review Prior Functional Status Medical History Reviewed Yes Communication able to make needs known Mobility and Gait pt stated that she is able to do bed mobility mod I and stand pivot transfer from bed <>w/c; w/c <>toilet but needs assist with w/c<> recliner; pt stated that she has not ambulated since she had a stroke in 2006 Activities of Daily Living and IADL's pt stated that she is able to take care of her toileting needs by herself but her daughter assists her with showers and dressing Social History Household Members family Living Arrangements House Number of Floors (Floors) Two Floors Number of Stairs To Enter/Railing? pt stays on main level of the house and has a ramp to enter; family pushes her with her w/ c to get in/out through the ramp Home Environment Standard Height Toilet,Walk in Shower,Ramp Home Equipment Manual Wheelchair,Grab Bars Near Toilet,Grab Bars In Shower Employment Status Retired Additional Social History Comment pt stated that she has a rolling shower chair where she transfers into and her daughter wheels her into the shower and assists her with showers and dressing. M1 PT/OT-IP Prior Functional Status Start: 12/27/20 12:02 Freq: NEEDED Status: Active Protocol: Document 12/27/20 12:05 CGR (Rec: 12/27/20 12:26 CGR [id number]) Medical Review Prior Functional Status Medical History Reviewed Yes Communication able to make needs known Mobility and Gait pt stated that she is able to do bed mobility mod I and stand pivot transfer from bed <>w/c; w/c <>toilet but needs assist with w/c<> recliner; pt stated that she has not ambulated since she had a stroke in 2006 Activities of Daily Living and IADL's pt stated that she is able to take care of her toileting needs by herself but her daughter assists her with showers and dressing Social History Household Members family Living Arrangements House Number of Floors (Floors) Two Floors Number of Stairs To Enter/Railing? pt stays on main level of the house and has a ramp to enter; family pushes her with her w/ c to get in/out through the ramp Home Environment Standard Height Toilet,Walk in Shower,Ramp Home Equipment Manual Wheelchair,Grab Bars Near Toilet,Grab Bars In Shower Employment Status Retired Additional Social History Comment pt stated that she has a rolling shower chair where she transfers into and her daughter wheels her into the shower and assists her with showers and dressing. M2 OT-IP Current Condition Start: 12/27/20 12:02 Freq: Status: Active Protocol: Document 12/27/20 12:05 CGR (Rec: 12/27/20 12:26 R [id number]) Occupational Therapy Current Condition Current Condition Evaluation Date 12/27/20 Treatment Diagnosis CHF exacerbation and generalized weakness. Diagnosis Onset Date 12/21/20 M3 OT- IP Subjective and Pain Start: 12/27/20 12:02 Freq: Status: Active Protocol: Document 12/27/20 12:05 CGR (Rec: 12/27/20 12:26 R [id number]) OT- Subjective Occupational Therapy Visit Type Type Initial Evaluation Visit Start Time 09:25 Visit Stop Time 09:46 Total Visit Minutes 21 Notes Partial co-treat with P.T. Occupational Therapy Visit Comments Patient Comments Ok lets get up. OT Pain Assessment Pain When Pain Assessed At Rest Pain Present Pain Present Denied Pain M4 OT- IP ADL's Start: 12/27/20 12:02 Freq: Status: Active Protocol: Document 12/27/20 12:05 CGR (Rec: 12/27/20 12:26 R [id number]) OT [id number] Comments OT Self-Feeding Comments not meal time OT ADL-Grooming Comments OT Grooming Comments Pt declined, states she performed already OT ADL-Oral Care Comments Oral Care Comments Pt declined, states she performed already OT ADL-Dressing General Eval Lower Body Dressing Ability Total Assistance Areas Needing Assistance Socks OT ADL-Toileting Comments OT Toileting Comments not performed, pt with brief in place OT ADL-Bathing Comments OT Bathing Comments not appropriate at this time M5 OT- IP IADL's Start: 12/27/20 12:02 Freq: Status: Active Protocol: Document 12/27/20 12:05 CGR (Rec: 12/27/20 12:26 CGR [id number]) OT-Instrumental Activities of Daily Living Deficits IADL Deficits Identified Deficits Home Safety Awareness Awareness of Need for Assistance at Home Decreased Awareness Ability to Problem Solve Emergency Unable to Problem Solve Situations Medication Management Medication Management Comments Concerns regarding pt's ability to perform Money Management Money Management Comments Concerns regarding pt's ability to perform Meal Preparation Meal Preparation Caregiver Provides Assist Icer Hand Icer Hand Caregiver Provides Assist Driving Driving Comments Pt does not drive. M6 OT- IP Functional Cognition Start: 12/27/20 12:02 Freq: Status: Active Protocol: Document 12/27/20 12:05 CGR (Rec: 12/27/20 12:26 CGR [id number]) Cognitive Factors Limiting Selfcare Function Cognitive Ability Level of Alertness Alert,Confusional State Patient Orientation Name,Place,Situation Attention Span Ability Capable of Focused Attention, Unable to Sustain Attention Ability to Follow Commands Able to Follow One Step Commands with Increased Time, Able to Follow One Step Commands with Repetition Cognitive Comments Cognitive Assessment Comments Pt would benefit from a formal cog assessment. Pt with c/o dizziness with sitting upright but then declined to take her medication for dizziness. OT- Vision and Hearing OT- Hearing Assessment OT- Hearing Assessment WFL OT- Vision Assessment Visual Acuity WFL Visual Attentiveness WFL Occular Pursuits WFL Visual Convergence WFL Vision Assessment Comments noted some nastigmus with sitting when pt states dizzy M7 OT- IP Mobility and Balance Start: 12/27/20 12:02 Freq: Status: Active Protocol: Document 12/27/20 12:05 CGR (Rec: 12/27/20 12:26 CGR [id number]) OT- Bed Mobility Assessment Rolling Level of Assistance Maximum Assistance Supine to Sit Supine to Sit Assist Maximum Assistance,2 Person Assistance Sit to Supine Sit to Supine Assist Maximum Assistance,2 Person Assistance Scooting Scooting to Edge of Bed Maximum Assistance,2 Person Assistance Scooting Up and Down in Bed Total Assistance,2 Person Assistance OT-Transfer Assessment Comments Mobility Comments Pt was unable to get into standing with 2 person assist. Pt had difficulty placing foot on the ground for transfer. OT- Balance Assessment Sitting Balance and Reactions Static Sitting Balance Ability Poor Dynamic Sitting Balance Ability Poor M8 OT- IP Objective Assessments Start: 12/27/20 12:02 Freq: Status: Active Protocol: Document 12/27/20 12:05 CGR (Rec: 12/27/20 12:26 CGR [id number]) OT Gross Range of Motion Upper Extremity Range of Motion Assessment Left Impaired OT Strength Upper Extremity Strength Assessment Left Impaired Comments Strength Comments Pt with hx of L impairment from CVA. OT- Coordination Assessment Upper Extremity Finger to Nose Test Left UE Impaired Finger Tapping Test Left UE Impaired OT-Muscle Tone Assessment Muscle Tone WNL No Muscle Tone Location Left Upper Extremity Type of Tone Hypertonicity Severity of Tone Mild OT Sensation Assessment Edema Edema Absent M9 OT- IP Assessment and Plan Start: 12/27/20 12:02 Freq: Status: Active Protocol: Document 12/27/20 12:05 CGR (Rec: 12/27/20 12:26 CGR [id number]) OT Summary Assessment and Plan Potential Rehabilitation Potential Good Analytic Complexity at Evaluation High Summary OT Impairments Range of Motion,Strength, Balance,Coordination,Tone, Functional Cognition, Functional Mobility,Self- Feeding,Grooming,Dressing, Toileting,Bathing,Toilet Transfers,Shower Transfers, Activity Tolerance Progress Towards Goals Slow Progress due to Activity Tolerance,Slow Progress due to Cognition Assessment Summary Pt presents as a high complexity evaluation s/p admit for generalized weakness and CHF. Pt is currently unable to perform transfer and appears confused at times. Pt would benefit from formal cog assessment and continued therapy services. Recommend d/ c to SNF upon discharge given new deficit with mobility. Goals Self-Feeding Goal Independent Grooming Goal Independent Toileting Goal Independent Toilet Transfer Goal Independent Days to Meet Goals 10 Frequency of Treatment Frequency Of Treatment Once a Day Treatment Plan OT Treatment Plan ADL Training,Functional Cognition Training,Functional Mobility,Patient/Family Education,Discharge Planning Other Treatment Recommendations and Next formal cog assessment, co- Treatment Focus treat for transfers. Discharge Recommendations OT Discharge Recommendations SNF Rehab Transportation Needs at Discharge Wheelchair/Cabulance
[2020-12-27] MEDS: CHOLECALCIFEROL (VITAMIN D3) 5,000 UNIT TABLET 5000 UNIT PO (09:47)
[2020-12-27] MEDS: METOPROLOL ER 50 MG TABLET PO (09:48)
[2020-12-27] MEDS: NIACIN 500 MG TAB ER 1000 MG PO (09:48)
--- NOTE | 2020-12-27 11:25 | CM.DPC ---
DCP/continued: Reviewed chart. Received call from Jeanne at [facility]. She reports that she is working on obtaining authorization from [facility] for acceptance. Patient has not been accepted at [facility] but Jeanne expects that patient will be accepted. Jeanne reports she has started authorization with [employer]. P: CM team following closely. GREGORIO
--- NOTE | 2020-12-27 11:56 | PC.NURSE ---
PT A&Ox3, denies pain this a.m. VSS, afebrile. Poor po intake. She denies of nausea but complains of constipation. Offered laxative and she states she would rather take it at lunch time because she takes so many medications. PT/OT at bedside to sit patient up, but layed her back down due to dizzines. Pt offered meclizine and she said not at this time, that she would take it about lunchtime. She calls appropriately for assistance. Will continue to monitor.
[2020-12-27] MEDS: MECLIZINE HCL 12.5 MG TABLET 25 MG PO (12:32)
[2020-12-27] MEDS: ACETAMINOPHEN 325 MG TABLET 650 MG PO ×2 (12:32→22:01)
[2020-12-27] MEDS: BISACODYL 5 MG TABLET PO (12:33)
[2020-12-27 15:15] LABS: Hepatitis B Surface Antigen NEGATIVE s/c (NEGATIVE)
[2020-12-27 15:31] LABS: Hep C Virus Ab w/Reflex Quant NEGATIVE s/c (NEGATIVE)
--- NOTE | 2020-12-27 16:02 | P.PN_ITS ---
Subjective Subjective Date Patient Seen: 12/27/20 Time Patient Seen: 08:00 Interval history: She has no specific complaints. But in general still has malaise, and feels weak. Exam Vital Signs (past 8 hours): - 12/27/20 08:33 12/27/20 09:48 12/27/20 11:44 Temperature 96.8 F L 97.5 F L Pulse Rate 58 L 60 80 Respiratory Rate 16 16 Blood Pressure 131/66 131/66 125/59 L Pulse Oximetry 94 93 12/27/20 11:54 Temperature Pulse Rate 80 Respiratory Rate Blood Pressure 125/59 L Pulse Oximetry Oxygen Delivery Method Room Air Oxygen Flow Rate 0 Narrative Exam Narrative: GEN: no acute distress PULM:?clear bilaterally, no wheezing CV:?regular rate and rhythm, 2/6 ejection murmur ABD: soft, nontender, nondistended, no organomegaly, normal bowel sounds EXT: warm and well perufsed with no edema Objective Labs Result Diagrams: 12/24/20 04:57 12/27/20 05:00 Labs: Laboratory Results - last 24 hr 12/26/20 12/27/20 09:25 05:00 Sodium 138 Potassium 3.4 Chloride 94 L Carbon Dioxide 37 H BUN 63 H Creatinine 2.07 H Estimated GFR 23.7 L BUN/Creatinine Ratio 30.4 H Glucose 135 H Calcium 9.2 Total Bilirubin 0.6 AST 470 H ALT 667 H Alkaline Phosphatase 130 H Total Protein 7.2 Albumin 3.1 L Globulin 4.1 Albumin/Globulin Ratio 0.8 L Hep Bs Antigen Negative Hepatitis C Antibody Negative [facility] Medical History (Updated 12/27/20 @ 00:00 by ) Atrial fibrillation Congestive heart failure CVA (cerebral vascular accident) History of CVA with residual deficit HLD (hyperlipidemia) Surgical History Hx of cholecystectomy Social History household members: family Smoking Status: Former smoker alcohol intake: current Assessment & Plan Assessment & Plan narrative: 1. 70-year-old female admitted to the hospital with AFib RVR, presumably paroxysmal in nature. -patient was DC cardioverted in the emergency room.? Is now in sinus rhythm -patient has no chest pain -initially on amiodarone. Given severe liver enzyme elevations was discontinued -Cardizem on hold given her heart rate is controlled and was in the 50s previously. -she is on Xarelto which has been adjusted for her creatinine clearance 2. Acute diastolic congestive heart failure -shortness of breath improved -stop lasix given ARNALDO 3. Acute kidney injury on probable CKD III -Creatinine 1.78 on admission, improved slightly to 1.4-1.5. again angeles to 2.06 probably from diuresis. 4. Elevated LFTs -likely related to passive congestion on admission. Were stable but now around 1000 AST and ALT. acute rise may be related to amiodarone, -will hold amidoarone and lasix. 5. Type 2 myocardial infarction -patient with no acute ST changes, and no chest pain troponins improved, likely in setting of demand from congestive heart failure. 6. Hyperlipidemia -continue statin 7. acute respiratory failure with hypoxia, resolved. ?- secondary to problem 2 above. 8. history of CVA ?- baseline uses wheelchair, however much weaker than baseline currently due to above problems. ?- continue PT /OT Dispo: waiting for improvement in kidney function, possibly improved in next day and can be discarged Time Spent With Patient Critical Care time: I spent a total of [] minutes of critical care time on this patient's care today; this time is exclusive of procedural time.
[2020-12-27] MEDS: SENNOSIDES 8.6 MG TABLET 17.2 MG PO (22:01)
[2020-12-28 00:24] LABS: Hepatitis A Ab Total Negative (Negative); Hepatitis B Core Antibody Negative (Negative)
[2020-12-28 02:00] VITALS: BP 143/65; PULSE 70; RESP 18; TEMP 36.5; O2SAT 92
[2020-12-28] MEDS: ACETAMINOPHEN 325 MG TABLET 650 MG PO ×2 (03:56→11:59)
[2020-12-28 04:56] LABS: Hepatitis B Surf Ab Qualitativ Non Reactive (.)
[2020-12-28 05:32] LABS: Alanine Aminotransferase 480 IU/L (<35); Albumin Globulin Ratio 0.8 (1.0-2.8); Alkaline Phosphatase 141 U/L (38-126); Aspartate Aminotransferase 222 IU/L (14-36); BUN Creatinine Ratio 32.4 (6-22); Bilirubin Total 0.6 mg/dL (0.2-1.3); Blood Urea Nitrogen 56 mg/dL (7-17); Calcium 9.2 mg/dL (8.4-10.2); Carbon Dioxide 36 mmol/L (22-32); Chloride 95 mmol/L (98-107); Estimated Glomerular Filt Rate 29.1 mL/min (>60); Glucose 140 mg/dL (80-110); HEMOLYSIS < 15 (0-50); Potassium 3.5 mmol/L (3.4-5.1); Sodium 135 mmol/L (137-145)
[2020-12-28 05:33] LABS: Hematocrit 38.2 % (36-46); Hemoglobin 12.9 g/dL (12.0-16.0); Mean Corpuscular HGB Conc 33.7 % (30-36); Mean Corpuscular Hemoglobin 31.7 PG (26-34); Mean Corpuscular Volume 94.1 fL (80-100); Platelet Count 464 X10^3/uL (150-400); Red Blood Cell Count 4.05 X10^6/uL (4.0-5.2); Red Cell Distribution Width 14.9 % (11.6-14.8); White Blood Cell Count 7.7 X10^3/uL (4.5-11.0)
[2020-12-28 07:33] VITALS: BP 142/72; PULSE 64; RESP 14; TEMP 36; O2SAT 93
[2020-12-28] MEDS: DIVALPROEX DR 250 MG TABLET 500 MG PO (09:15)
[2020-12-28] MEDS: DOCUSATE 100 MG CAPSULE PO (09:15)
[2020-12-28] MEDS: CHOLECALCIFEROL (VITAMIN D3) 5,000 UNIT TABLET 5000 UNIT PO (09:15)
[2020-12-28] MEDS: FOLIC ACID 1 MG TABLET PO (09:15)
[2020-12-28] MEDS: LORATADINE 10 MG TABLET PO (09:15)
[2020-12-28] MEDS: SODIUM CHLORIDE 0.9% FLUSH 10 ML IV (09:15)
[2020-12-28] MEDS: SERTRALINE 50 MG TABLET PO (09:15)
[2020-12-28 09:16] VITALS: BP 142/72; PULSE 64
[2020-12-28] MEDS: RIVAROXABAN 10 MG TABLET 15 MG PO (09:16)
[2020-12-28] MEDS: METOPROLOL ER 50 MG TABLET PO (09:16)
[2020-12-28] MEDS: BISACODYL 5 MG TABLET PO (09:20)
[2020-12-28] MEDS: MECLIZINE HCL 12.5 MG TABLET 25 MG PO (09:24)
--- NOTE | 2020-12-28 10:14 | PT.IPTN ---
Current Diagnoses Other persistent atrial fibrillation (12/21/20) Physical Therapy Treatment Note M2 PT-IP Current Condition Start: 12/24/20 13:01 Freq: NEEDED Status: Active Protocol: Document 12/24/20 11:35 AB (Rec: 12/24/20 13:16 AB [id number]) Physical Therapy Current Condition Current Condition Evaluation Date 12/24/20 Treatment Diagnosis A-fib; h/o R CVA L lety; generalized weakness Onset Date 12/21/20 M3 PT-IP Subjective Start: 12/24/20 13:01 Freq: NEEDED Status: Active Protocol: Document 12/28/20 10:14 AW (Rec: 12/28/20 10:21 AW [id number]) Subjective Physical Therapy Visit Type Type Treatment Note Visit Start Time 09:48 Visit Stop Time 10:12 Total Visit Minutes 24 Notes UMBRELLA REPAIRER provided assist with mobility Number of TWITCHELL OPERATOR Visits 0 Physical Therapy Visit Comments Patient Comments Pt willing to attempt transfer to chair today. She had meclizine already and feels her spinniness may be better controlled. M4 PT-IP Mobility and Gait Start: 12/24/20 13:01 Freq: NEEDED Status: Active Protocol: Document 12/28/20 10:14 AW (Rec: 12/28/20 10:21 AW [id number]) PT-Bed Mobility Assessment Supine to Sit Supine to Sit Maximum Assistance,1 Person Assistance,Head of Bed Elevated,Bedrails Scooting Scooting to Edge of Bed Dependent PT-Transfer Assessment Equipment Transfer Assistive Device Gait Belt Transfers Transfer Destination Chair Transfer Technique Squat Pivot Transfer Ability Level of Assist Maximum Assistance,1 Person Assistance,Use of Upper Extremities Comments Mobility Comments Pt was tired from bed bath and cleanup but willing to attempt transfer. She used RLE to assist LLE to left edge of bed, alternating with small lateral bridging movements to get close to EOB on her own. Pt then required assist to swivel to sitting position and to scoot forward. UMBRELLA REPAIRER arrived and spotted from behind as PT provided max A x 1 to complete squat pivot transfer going toward pt's right side. Pt assisted by reaching right arm across to far chair arm and weightshifting forward. Pt required max assist for repositioning. She was left with call light and tray table in reach. M5 PT-IP Objective Assessments Start: 12/24/20 13:01 Freq: NEEDED Status: Active Protocol: Document 12/24/20 11:35 AB (Rec: 12/24/20 13:16 AB [id number]) Orientation Orientation/Cognition Level of Alertness Confusional State Orientation Name Language Function Ability Hard of Hearing Safety Awareness Decreased Safety Awareness Memory Description Short Term Impaired Gross Range of Motion Lower Extremity ROM Assessment Left Impaired Impairments L knee flexion: ~ 30 deg only with hard end feel and (+) crepitus towards end of range L ankle in PF of Strength Lower Extremity Strength Assessment Left Impaired Hip 2-/5 Knee 1/5 Ankle 0/5 M6 PT-IP Treatment Start: 12/24/20 13:01 Freq: NEEDED Status: Active Protocol: Document 12/28/20 10:14 AW (Rec: 12/28/20 10: AW [id number]) Physical Therapy Treatment Education Education Provided Safety M7 PT-IP Assessment and Plan Start: 12/24/20 13:01 Freq: NEEDED Status: Active Protocol: Document 12/28/20 10:14 AW (Rec: 12/28/20 10:21 AW [id number]) PT Summary Assessment and Plan Potential Rehabilitation Potential Fair Summary Impairments Pain,ROM,Strength,Balance, Coordination,Sensation,Tone, Cognition,Bed Mobility, Transfers,Gait,Activity Tolerance Progress Towards Goals Slow Progress due to Medical Issues,Slow Progress due to Activity Tolerance Assessment Summary Pt improved with bed mobility today, increasing use of her right side to assist toward edge of bed. She was able to complete squat pivot transfer to chair max assist x 1. Pt is typically able to transfer bed to chair modified independent. She will require SNF rehab to improve strength and mobility independence. Goals Bed Mobility Goal Standby Assistance Transfer Goal Moderate Assistance Other Goals improve transfer to CGA Frequency of Treatment Frequency Of Treatment Once a Day Treatment Plan Physical Therapy Treatment Plan Bed Mobility Training,Transfer Training,Gait Training, Therapeutic Exercise,Balance Retraining,Discharge Planning, Hot or Cold Pack,Neuromuscular Re-ed,Coordination Retraining ,Manual Therapy Precautions Other Precautions falls Recommendations To Nursing Amount of Assist Needed Mechanical Lift Discharge Recommendations PT Discharge Recommendations SNF Rehab Transportation Needs at Discharge Wheelchair/Cabulance
[2020-12-28 11:24] VITALS: BP 143/73; PULSE 72; RESP 18; TEMP 36.1; O2SAT 92
[2020-12-28 12:29] VITALS: BP 143/73; PULSE 72
[2020-12-28 13:00] LABS: COVID19 - ADMIT (NP swab/PCR) Negative (Negative)
--- NOTE | 2020-12-28 13:07 | CM.DPNOTE ---
Emailed final SNF packet to Maria M at [facility] and received confirmation. DC summary not available. Will send that when it is available. Cristiane Driscoll CM Asst.
--- NOTE | 2020-12-28 14:01 | PC.NURSE ---
nurse note: Patient left via facility transport team in . Patient packet given to facility staff. Report called by primary nurse. VSS. Patient left in stable condition.
--- NOTE | 2020-12-28 14:10 | PC.NURSE ---
Addendum entered by Ileana Winter R.N. 12/28/20 14:50: Report called to Yolanda at [facility] Original Note: Pt is A&Ox3, VSS, afebrile on RA. LS CTA. LBM today. Per MD after evaluation she is medically cleared for discharge. Discharge arranged for [facility]. Patient and daughter agreeable to plan. Facility designee arrived at 1400 to transport patient via her own wheel chair. Packet given to designee with COVID negative results,discharge summary, etc.
--- NOTE | 2020-12-28 14:42 | CM.DPNOTE ---
DCP/continued: Reviewed chart. Received notification from provider that patient medically stable to d/c to SNF. Received call from payor indicating that current SNF choice, [facility] is not a contracted SNF. Payor reports that [facility] and [facility] are both contracted in the area. Shari at [facility] reports that authorization has been given to [facility]. Per CM notes, referral has been sent to [facility]. Placed call to Maria M re: acceptance. Maria M reports that she has received authorization and can accept today. Met with patient to discuss plan. Patient prefers to stay near he residence but does not want to pay out of network costs. Therefore, patient aware and agreeable to [facility]. Patient requesting TELECOMMUNICATIONS TECHNICIAN call her daughter/Sylvie with update. Placed call to Sylvie informing her of the above. Sylvie appreciative of call and agreeable to plan. Daughter provided information for facility and plans to f/u. Important Message from Medicare provided to patient. Maria M reports that she will coordinate transport. Patient has her own w/c in room. No additional needs identified. GABRIELLE/Cristiane to finalize discharge. P: [facility] today. GREGORIO
--- NOTE | 2020-12-28 20:15 | PM.DS.1 ---
History of Present Illness History of Present Illness Chief complaint: shortness of breath/cough Narrative: Per Dr. Dubon: Patient is a 70-year-old female with a history of chronic atrial fibrillation, congestive heart failure, history of CVA with left-sided deficits, hyperlipidemia who was in her usual state of health until the past few days. Patient had intermittent palpitations. But she noted increasing shortness of breath. She typically is able to transfer from her wheelchair to a toilet but was unable to do so because of her shortness of breath. Patient also reported orthopnea as well. She was evaluated in the emergency room. And found to have atrial fibrillation with rapid ventricular response rate. Multiple attempts at medications were tried to control her heart rate including metoprolol several doses and diltiazem IV. This did not control her rate. After consultation with Cardiology the patient underwent DC cardioversion. After cardioversion her heart rate improved and she converted to sinus rhythm with a rate of 54. In addition the patient was started on amiodarone. She has previously had success with amiodarone. Patient was noted to be in congestive heart failure and given IV Lasix for this as well. [place] [address], her troponin was mildly elevated at 0.107. Her AST was 66 ALT is 75 alk-phos of 142. Her BUN was 58 with a creatinine of 1.78. Patient reported a fever. Her white count was elevated at 14.1. She was empirically started on ceftriaxone for presumed urinary tract infection. Patient is admitted to the hospital at this time for further treatment. Discharge Providers Provider Date of admission: 12/21/20 15:23 Discharge Date: 12/28/20 Primary care physician: Ida Tellez MD Consults: 12/21/20 11:38 Consult to Respiratory Therapy Evaluate & Treat Comment: Physician Instructions: Evaluate and treat 12/24/20 08:49 Consult to Physical Therapy Evaluate & Treat Comment: Physician Instructions: Evaluate and Treat 12/26/20 11:33 Consult to Occupational Therapy Evaluate & Treat Comment: Physician Instructions: Evaluate and treat Discharge provider: Freddy Man MD Summary Hospital Course Discharge Diagnosis: 1. Atrial fibrillation with RVR 2. Acute diastolic CHF exacerbation 3. ARNALDO on probable CKD stage 3 4. Elevated LFTs, likely related to congestion and amiodarone 5. Type 2 GA 6. HL 7. Acute hypoxemic respiratory failure 8. History of CVA, wheelchair bound Hospital Course: Ms. Capellan presented to the hospital with shortness of breath and hypoxemia. She was found to be in afib with RVR and was cardioverted on sinus rhythm. She was initially on amiodarone but developed elevated liver function tests which improved with dc of amiodarone. She was initially on cardizem but his was held initially due to bradycardia. She was in diastolic CHF exacerbation and was diuresed with lasix. Initially she did well and diuresed a total of -4.6L in the hospital. She had a creatinine on admission of 1.7, that improved to 1.4, but then angeles to 2.0 likely due to diuresis. Her aggressive diureses was then stopped and her creatinine improved to 1.7. She had elevated troponin but no chest pain or EKG changes, this was likely secondary to demand from CHF and afib with rvr. On day of discharge she was much improved, but quite weak and she was discharged to SNF for PT. Exam Vital Signs (past 8 hours): - 12/28/20 12:29 Pulse Rate 72 Blood Pressure 143/73 H Oxygen Delivery Method Room Air Oxygen Flow Rate 0 Narrative Exam Narrative: GEN: no acute distress PULM: clear bilaterally, no wheezing CV: regular rate and rhythm, 2/6 ejection murmur ABD: soft, nontender, nondistended, no organomegaly, normal bowel sounds EXT: warm and well perfused with no edema Objective Labs Result Diagrams: 12/28/20 05:05 12/28/20 05:05 Labs: Laboratory Results - last 24 hr 12/26/20 12/26/20 12/26/20 08:25 09:25 09:25 WBC RBC Hgb Hct MCV MCH MCHC RDW Plt Count Sodium Potassium Chloride Carbon Dioxide BUN Creatinine Estimated GFR BUN/Creatinine Ratio Glucose Calcium Total Bilirubin AST ALT Alkaline Phosphatase Total Protein Albumin Globulin Albumin/Globulin Ratio SARS-CoV-2 (PCR) Hepatitis A Total & IgM Negative Hep Bs Antibody Non reactive Hep B Core Total Ab Negative 12/28/20 12/28/20 12/28/20 05:05 05:05 11:52 WBC 7.7 RBC 4.05 Hgb 12.9 Hct 38.2 MCV 94.1 MCH 31.7 MCHC 33.7 RDW 14.9 H Plt Count 464 H Sodium 135 L Potassium 3.5 Chloride 95 L Carbon Dioxide 36 H BUN 56 H Creatinine 1.73 H Estimated GFR 29.1 L BUN/Creatinine Ratio 32.4 H Glucose 140 H Calcium 9.2 Total Bilirubin 0.6 AST 222 H ALT 480 H Alkaline Phosphatase 141 H Total Protein 7.0 Albumin 3.0 L Globulin 4.0 Albumin/Globulin Ratio 0.8 L SARS-CoV-2 (PCR) Negative Hepatitis A Total & IgM Hep Bs Antibody Hep B Core Total Ab PFSH Medical History (Updated 12/27/20 @ 00:00 by ) Atrial fibrillation Congestive heart failure CVA (cerebral vascular accident) History of CVA with residual deficit HLD (hyperlipidemia) Surgical History Hx of cholecystectomy Social History household members: family Smoking Status: Former smoker alcohol intake: current Discharge Plan Discharge Plan Patient Disposition: SNF Provider Discharge Comment: Ms. Capellan was admitted with atrial fibrillation with rapid response. She also had a congestive heart failure exacerbation. She was treated and improved. She was weaker than her baseline and was discharged to rehab for additional treatment. She should have a repeat BMP to check her creatinine within one week. Discharge orders & Medications Prescriptions: Continued metoprolol tartrate 100 mg Tablet 100 mg PO TID RF: 0 divalproex 500 mg Tablet,Delayed Release (Dr/Ec) 500 mg PO TID RF: 0 vitamin B complex Tablet 1 tab PO DAILY RF: 0 folic acid 1 mg Tablet 1 mg PO DAILY RF: 0 furosemide 20 mg Tablet 20 mg PO PRN PRN (Reason: Edema) RF: 0 sertraline 50 mg Tablet 50 mg PO DAILY RF: 0 diltiazem HCl 240 mg Tablet Extended Release 24 Hr 240 mg PO BID RF: 0 rosuvastatin [Crestor] 40 mg Tablet 40 mg PO DAILY RF: 0 cholecalciferol (vitamin D3) [Vitamin D3] 5,000 unit Tablet 5,000 unit PO DAILY RF: 0 niacin 1,000 mg Tablet Extended Release 1,000 mg PO BID RF: 0 Xarelto 20 mg Tablet 20 mg PO DAILY RF: 0 potassium chloride 10 mEq Tablet Extended Release 10 meq PO PRN PRN (Reason: Electrolyte Replenishment) RF: 0 loratadine [Claritin] 10 mg Tablet 10 mg PO DAILY RF: 0 meclizine 25 mg tablet 25 mg PO TID PRN (Reason: dizziness) Qty: 10 RF: 0 ondansetron 4 mg tablet,disintegrating 4 mg PO Q8H PRN (Reason: nausea and vomiting) Qty: 10 RF: 0 Medication counseling provided by Pharmacist: No Pharmacist Comment: Discharging to SNF Follow up/Referrals: Ida Tellez MD [Primary Care Provider] - Diet/Activity/Treatments Diet: Low-sodium Liquid consistency: Normal/Thin Food texture: Regular Discharge Data Primary Care Provider: Ida Tellez
== END 2020-12-28 13:50 | DRG 280 ==
LOC: ED 12:56 → AC 15:23
PROVIDERS: Internal Medicine; Admitting Provider Internal Medicine; Emergency Provider Emergency Medicine; PCP Internal Medicine; Referring Provider Emergency Medicine; Visit Provider Internal Medicine
DX: I48.11 Longstanding persistent atrial fibrillation (principal); I50.31 Acute diastolic (congestive) heart failure; I21.A1 Myocardial infarction type 2; J96.01 Acute respiratory failure with hypoxia; I69.954 Hemiplegia and hemiparesis following unspecified cerebrovascular disease affecting left non-dominant side; N17.9 Acute kidney failure, unspecified; Z79.01 Long term (current) use of anticoagulants; I47.2 Ventricular tachycardia; H60.92 Unspecified otitis externa, left ear; N18.30 Chronic kidney disease, stage 3 unspecified; E78.5 Hyperlipidemia, unspecified; Z87.891 Personal history of nicotine dependence; Z20.822 Contact with and (suspected) exposure to COVID-19
CPT/HCPCS: 36415; 71045; 76705; 80048; 80053; 82550; 83605; 83735; 83880; 84145; 84484; 85025; 85027; 86704; 86706; 86708; 86803; 87040; 87086; 87147; 87340; 87635; 92960; 93005; 93306; 94760; 94762; 96365; 96366; 96375; 97162; 97167; 97530; 99152; 99284; C9803; J0282; J1940; J1956; J2405; J2704